=== PATIENT | female | born 1940 | race Asian ===

== ENCOUNTER 2016-10-21 11:00 | Inpatient (IN) | payer MEDICARE, MEDICAID ==
[~2016-10-21] VITALS: Ht 154.9 cm; Wt 72.6 kg
[~2016-10-21 11:00] MED LIST: ACETAMINOPHEN650 M2 ORAL; APRESOLINE10 MG ORAL; ATORVASTATIN CA20 MG ORAL; CARVEDILOL12.5 MG ORAL; COREG25 MG ORAL; COUMADIN1 MG ORAL; COUMADIN2.5 MG ORAL; DOCUSATE SODIU100 MG ORAL; FERROUS SULFAT325 MG ORAL; LACTULOSE20 GM/301 ORAL; LANTUS5 UNITS SUBQ; LEVEMIR FL100 UNIT/1 SUBQ; LOSARTAN POTASS50 MG ORAL; MIRALAX17 G2 ORAL; MORPHINE 22 MG/1 ML SUBQ; MULTIVITAMINS1 EAC8 ORAL; NITROGLYCERIN0.4 MG SL; NORCO 5-325 TA1 EACH ORAL; NORVASC2.5 MG ORAL; NOVOLOG100 UNITS1; RANITIDINE HCL150 MG ORAL; RISPERDAL1 MG ORAL; ROCEPHIN 11 GM/50 ML IVPB; VITAMIN C250 MG ORAL; VITAMIN D400 INTLU ORAL; Warfarin RX monitoring MISC
[2016-10-21] MEDS ORDERED: Nitroglycerin 2% oint pkt TOPIC ONE (11:15)
--- NOTE | 2016-10-21 11:19 | Emergency Room Report ---
History of Present Illness General Chief Complaint: Abnormal Labs Source: Patient, Medical Record, EMS, Caregiver Present Illness HPI The patient is sent in from a halfway facility because of a positive troponin. Apparently was 0.5. The patient hasn't chest pain and denies any at the moment. No dyspnea, palpitations. Patient complaining of some abdominal pain. Poorly described - aching and cramping, more mid abdomen. Denies dysuria. Diabetic, HTN Allergies: Coded Allergies: NO KNOWN DRUG ALLERGIES (Verified Allergy, Unknown, 09/26/15) Patient History Past Medical History: see triage record Past Surgical History: CABG, other - lumbar fxs Social History: Denies: smoking Social History Narrative [facility] Reviewed Nursing Documentation: PMH: Agreed, PSxH: Agreed Nursing Documentation-PMH Hx Cardiac Problems: Yes Hx Hypertension: Yes Hx Diabetes: Yes - kidney disease Hx Cancer: No Hx Gastrointestinal Problems: Yes - GERD Hx Neurological Problems: Yes - dementia Hx Cerebrovascular Accident: Yes - date unspecified Hx Dementia: Yes Hx Peripheral Neuropathy: Yes Hx Weakness: Yes Review of Systems All Other Systems: limited - variable historian Physical Exam Vital Signs Date Time Temp Pulse Resp B/P Pulse Ox O2 Delivery O2 Flow Rate FiO2 10/21/16 11:08 70 16 181/79 100 Room Air Procedures Critical Care Time Critical Care Time Total time: 30 min bedside evaluation and treatment excludes procedures (EKG). Reason for critical care: NSTEMI, hyperkalemia, hypoglycemia Possible complications: hypotension, hypertension, SD, shock, arrhythmias, metabolic acidosis, end organ damage, respiratory failure. Interventions: aspirin, nitrates, calcium, D50W, PICC, re-evaluations Course: Patient with + troponin. Immediate EKG, not STEMI. aspirin and nitrates given. K+ high, no peaked T waves. Treat. IV d/c. PICC inserted. Hypoglycemic, D50 W given. Repeat glucose better. Consultations: nursing staff, EMS, admitting MD Performed by: Dr. Baptiste Tolerated well condition = serious Medical Decision Making Diagnostic Impression: Primary Impression: NSTEMI (non-ST elevated myocardial infarction) Additional Impressions: Hyperkalemia Hypoglycemia UTI (urinary tract infection) Qualified Codes: N30.00 - Acute cystitis without hematuria Renal insufficiency ER Course Patient with + troponin with no c/o chest pain. DDx: NSTEMI, STEMI, false +. Emergent evaluation with EKG, labs, CXR. Treatment with aspirin and nitrates. Patient on coumadin. K+ elevated. Treatment ordered. Patient had d/c'd IV. Repeat labs ordered and PICC. Patient dropped blood sugar before treatment with insulin and D50W. D50W given. Repeat glucose 150. Patient hemodynamically stable. Denies chest pain. Admit [facility], Dr. Solomon. Laboratory Tests Test 10/21/16 11:30 10/21/16 12:30 Urine Color Pale yellow Urine Appearance Slightly cloudy Urine pH 5 (4.5-8.0) Urine Specific [place] 1.010 (1.005-1.035) Urine Protein 2+ (NEGATIVE) H Urine Glucose (UA) 1+ (NEGATIVE) H Urine Ketones Negative (NEGATIVE) Urine Occult Blood 1+ (NEGATIVE) H Urine Nitrite Negative (NEGATIVE) Urine Bilirubin Negative (NEGATIVE) Urine Urobilinogen Normal MG/DL (0.0-1.0) Urine Leukocyte Esterase 3+ (NEGATIVE) H Urine RBC 2-4 /HPF (0 - 2) H Urine WBC 15-20 /HPF (0 - 2) H Urine Squamous Epithelial Cells Few /LPF (NONE/OCC) Urine Bacteria Few /HPF (NONE) White Blood Count 6.1 K/UL (4.8-10.8) Red Blood Count 3.72 M/UL (4.20-5.40) L Hemoglobin 11.8 G/DL (12.0-16.0) L Hematocrit 35.5 % (37.0-47.0) L Mean Corpuscular Volume 95 FL (80-99) Mean Corpuscular Hemoglobin 31.6 PG (27.0-31.0) H Mean Corpuscular Hemoglobin Concent 33.2 G/DL (32.0-36.0) Red Cell Distribution Width 12.6 % (11.6-14.8) Platelet Count 258 K/UL (150-450) Mean Platelet Volume 6.9 FL (6.5-10.1) Neutrophils (%) (Auto) 61.9 % (45.0-75.0) Lymphocytes (%) (Auto) 26.3 % (20.0-45.0) Monocytes (%) (Auto) 6.8 % (1.0-10.0) Eosinophils (%) (Auto) 4.4 % (0.0-3.0) H Basophils (%) (Auto) 0.7 % (0.0-2.0) Prothrombin Time 19.1 SEC (9.30-11.50) H Prothrombin Time INR 1.8 (0.9-1.1) H Sodium Level 140 mEQ/L (135-145) Potassium Level 6.1 mEQ/L (3.4-4.9) *H Chloride Level 107 mEQ/L (98-107) Carbon Dioxide Level 20 mEQ/L (20-30) Anion Gap 13 (5-15) Blood Urea Nitrogen 41 mg/dL (7-23) H Creatinine 1.6 mg/dL (0.5-0.9) H Estimate Glomerular Filtration Rate mL/min (>60) Glucose Level 144 mg/dL (74-106) H Calcium Level 9.5 mg/dL (8.6-10.2) Total Bilirubin < 0.2 mg/dL (0.0-1.2) Aspartate Amino Transferase (AST) 24 U/L (5-40) Alanine Aminotransferase (ALT) 12 U/L (3-33) Alkaline Phosphatase 106 U/L (35-104) H Total Creatine Kinase 169 U/L (26-140) H Troponin I 1.09 ng/mL (<=0.30) *H Pro-B-Type Natriuretic Peptide 2157 pg/mL (0-125) H Total Protein 7.2 g/dL (6.6-8.7) Albumin 4.2 g/dL (3.5-5.2) Globulin 3.0 g/dL Albumin/Globulin Ratio 1.4 (1.0-2.7) EKG Diagnostic Results Rate: normal Rhythm: NSR ST Segments: no acute changes Rhythm Strip Diag. Results EP Interpretation: yes Rhythm: NSR, no PVC's, no ectopy Chest X-Ray Diagnostic Results EP Interpretation: Yes Findings: no consolidation, no effusion, no pneumothorax, other - scarring and CABG - calcification of aorta Number of Views: 1 Last Vital Signs Date Time Temp Pulse Resp B/P Pulse Ox O2 Delivery O2 Flow Rate FiO2 10/21/16 20:49 92 154/81 10/21/16 20:00 98.1 20 100 Room Air Status: improved Disposition: ADMITTED INPATIENT Condition: Serious Ben Baptiste M.D. Oct 21, 2016 11:19
[2016-10-21 11:35] VITALS: BP 163/72
[2016-10-21 12:03] LABS: APPEARANCE,URINE SLIGHTLY CLOUDY; KETONES,URINE NEGATIVE (NEGATIVE); LEUKOCYTE ESTERASE ,URINE 3+ (NEGATIVE); NITRITE,URINE NEGATIVE (NEGATIVE); PH,URINE 5 (4.5-8.0); PROTEIN,URINE 2+ (NEGATIVE); UROBILINOGEN,URINE NORMAL MG/DL (0.0-1.0)
[2016-10-21 12:13] LABS: BACTERIA,URINE FEW /HPF; SQUAMOUS EPITHELIAL CELL,UR FEW /LPF (NONE/OCC); WBC,URINE 15-20 /HPF (0 - 2)
[2016-10-21] MEDS ORDERED: cefTRIAXone 1 GM in NS 55 ML IVPB ONE (12:30)
[2016-10-21 12:38] LABS: BASOPHILS % (AUTO) 0.7 % (0.0-2.0); EOSINOPHILS % (AUTO) 4.4 % (0.0-3.0); LYMPHOCYTES % (AUTO) 26.3 % (20.0-45.0); MEAN CORPUSCULAR HEMOGLOBIN 31.6 PG (27.0-31.0); MEAN CORPUSCULAR HGB CONC 33.2 G/DL (32.0-36.0); MEAN CORPUSCULAR VOLUME 95 FL (80-99); MEAN PLATELET VOLUME 6.9 FL (6.5-10.1); MONOCYTES % (AUTO) 6.8 % (1.0-10.0); NEUTROPHILS % (AUTO) 61.9 % (45.0-75.0); PLATELET COUNT 258 K/UL (150-450); RED BLOOD COUNT 3.72 M/UL (4.20-5.40); RED CELL DISTRIBUTION WIDTH 12.6 % (11.6-14.8); WHITE BLOOD COUNT 6.1 K/UL (4.8-10.8)
[2016-10-21 13:25] LABS: TROPONIN I 1.09 ng/mL (<=0.30)
[2016-10-21 13:27] LABS: INR 1.8 (0.9-1.1); PROTHROMBIN TIME 19.1 SEC (9.30-11.50)
[2016-10-21 13:44] LABS: ALANINE AMINOTRANSFERASE 12 U/L (3-33); ALBUMIN/GLOBULIN RATIO 1.4 (1.0-2.7); ANION GAP 13 (5-15); ASPARTATE AMINO TRANSFERASE 24 U/L (5-40); CALCIUM 9.5 mg/dL (8.6-10.2); CARBON DIOXIDE 20 mEQ/L (20-30); CHLORIDE 107 mEQ/L (98-107); CREATININE 1.6 mg/dL (0.5-0.9); HEMOLYSIS 14; SODIUM 140 mEQ/L (135-145); TOTAL PROTEIN 7.2 g/dL (6.6-8.7)
[2016-10-21 13:45] LABS: POTASSIUM 6.1 mEQ/L (3.4-4.9)
[2016-10-21] MEDS ORDERED: Calcium Gluconate 1gm/10ml vial IVP ONE (14:00)
[2016-10-21] MEDS ORDERED: Sodium Polystyrene Sulfonate 15gm Powder ORAL ONE (14:00)
--- NOTE | 2016-10-21 14:36 | Diagnostic Imaging Report ---
Indication: Chest pain Technique: One view of the chest Comparison: 06/02/2016 Findings: Linear presumed scarring is seen in the right midlung, left mid to lower lung, similar to prior studies. The lungs and pleural spaces are clear otherwise. The heart size is upper limits normal. Aorta is tortuous and ectatic and calcified. There is evidence of prior CABG Impression: Findings as noted. No acute process
[2016-10-21] MEDS ORDERED: Lidocaine 1% Plain 30 ml INJ ONE (15:00)
[2016-10-21] MEDS ORDERED: Heparin 2000 units/Ns 1000ml IV ONE (15:00)
[2016-10-21 15:24] VITALS: BP 140/60
[2016-10-21] MEDS ORDERED: Heparin 25,000u/D5W 500ml 500 ML IV SCH (15:45)
[2016-10-21] MEDS ORDERED: HydrALAZINE 10mg Tab ORAL PRN (15:45)
[2016-10-21] MEDS ORDERED: Diltiazem 25mg/5ml IV PRN (15:45)
[2016-10-21] MEDS ORDERED: Enalaprilat 2.5mg/2ml Inj IV PRN (15:45)
[2016-10-21] MEDS ORDERED: DuoNeb 0.5-3(2.5)mg/3ml neb HHN PRN (15:45)
[2016-10-21] MEDS ORDERED: Ketorolac 30mg Inj IV PRN (15:45)
[2016-10-21] MEDS ORDERED: Miralax 17gm pkt ORAL PRN (15:45)
[2016-10-21] MEDS ORDERED: Morphine Sulfate 2mg/ml Inj IVP PRN (15:45)
[2016-10-21] MEDS ORDERED: Nitroglycerin Subl 0.4mg tab (Bottle Of 25) SL PRN (15:45)
[2016-10-21] MEDS: NovoLOG Insulin Flexpen SUBQ SCH ×2 (16:30→20:53)
[2016-10-21] MEDS: Aspirin Baby 81mg ORAL SCH (17:00)
[2016-10-21 17:28] VITALS: BP 140/68
--- NOTE | 2016-10-21 17:44 | Diagnostic Imaging Report ---
Indications: Needs long-term IV access Technique: Ultrasound confirms patent compressible right distal vein. Total sterile technique, including sterile probe cover and sterile gel, hat, mask,, sterile gown, large sterile drape, and preparation with 2% chlorhexidine utilized. Local anesthesia with 1% lidocaine. Under real-time ultrasound guidance, puncture is a vein using 21-gauge needle, documented and archived, passage 0.018 guidewire under direct fluoroscopy, which was used to determine appropriate catheter length, exchange for 5 Azeri peel-away sheath. 5 [place] Bard dual-lumen power PICC cut to 30 cm. It was inserted through the peel-away sheath. Peel-away sheath and guidewire removed. Catheter fixed to the skin. Both catheter ports aspirated and flushed. Patient tolerated procedure well, without immediate complication. Digital radiograph documents satisfactory catheter tip position, at the cavoatrial junction. Total fluoroscopy time 0.3 minutes. Total dose area product 6.1 dGycm2 Impression: Successful placement of PICC under sonographic and fluoroscopic guidance, as described above.
[2016-10-21 18:15] VITALS: BP 145/69
--- NOTE | 2016-10-21 18:23 | Cardiology Progress Note ---
Assessment/Plan Assessment/Plan nstemi cad hsx renal insuf htn uti has an stress test 05/2016 poor study will repeat labs statin ecotrin for now abx for uti will follow thanks [id number] Objective Last 24 Hour Vital Signs Date Time Temp Pulse Resp B/P Pulse Ox O2 Delivery O2 Flow Rate FiO2 10/21/16 18:15 97.6 82 17 145/69 99 Room Air 10/21/16 15:24 97.6 74 16 140/60 99 Room Air 10/21/16 12:12 143/85 10/21/16 11:35 16 163/72 100 Room Air 10/21/16 11:08 70 16 181/79 100 Room Air Laboratory Tests Test 10/21/16 11:30 10/21/16 12:30 10/21/16 17:26 Urine Color Pale yellow Urine Appearance Slightly cloudy Urine pH 5 (4.5-8.0) Urine Specific [place] 1.010 (1.005-1.035) Urine Protein 2+ (NEGATIVE) H Urine Glucose (UA) 1+ (NEGATIVE) H Urine Ketones Negative (NEGATIVE) Urine Occult Blood 1+ (NEGATIVE) H Urine Nitrite Negative (NEGATIVE) Urine Bilirubin Negative (NEGATIVE) Urine Urobilinogen Normal MG/DL (0.0-1.0) Urine Leukocyte Esterase 3+ (NEGATIVE) H Urine RBC 2-4 /HPF (0 - 2) H Urine WBC 15-20 /HPF (0 - 2) H Urine Squamous Epithelial Cells Few /LPF (NONE/OCC) Urine Bacteria Few /HPF (NONE) White Blood Count 6.1 K/UL (4.8-10.8) Red Blood Count 3.72 M/UL (4.20-5.40) L Hemoglobin 11.8 G/DL (12.0-16.0) L Hematocrit 35.5 % (37.0-47.0) L Mean Corpuscular Volume 95 FL (80-99) Mean Corpuscular Hemoglobin 31.6 PG (27.0-31.0) H Mean Corpuscular Hemoglobin Concent 33.2 G/DL (32.0-36.0) Red Cell Distribution Width 12.6 % (11.6-14.8) Platelet Count 258 K/UL (150-450) Mean Platelet Volume 6.9 FL (6.5-10.1) Neutrophils (%) (Auto) 61.9 % (45.0-75.0) Lymphocytes (%) (Auto) 26.3 % (20.0-45.0) Monocytes (%) (Auto) 6.8 % (1.0-10.0) Eosinophils (%) (Auto) 4.4 % (0.0-3.0) H Basophils (%) (Auto) 0.7 % (0.0-2.0) Prothrombin Time 19.1 SEC (9.30-11.50) H Prothromb Time International Ratio 1.8 (0.9-1.1) H Sodium Level 140 mEQ/L (135-145) Potassium Level 6.1 mEQ/L (3.4-4.9) *H Chloride Level 107 mEQ/L (98-107) Carbon Dioxide Level 20 mEQ/L (20-30) Anion Gap 13 (5-15) Blood Urea Nitrogen 41 mg/dL (7-23) H Creatinine 1.6 mg/dL (0.5-0.9) H Estimat Glomerular Filtration Rate mL/min (>60) Glucose Level 144 mg/dL (74-106) H Calcium Level 9.5 mg/dL (8.6-10.2) Total Bilirubin < 0.2 mg/dL (0.0-1.2) Aspartate Amino Transf (AST/SGOT) 24 U/L (5-40) Alanine Aminotransferase (ALT/SGPT) 12 U/L (3-33) Alkaline Phosphatase 106 U/L (35-104) H Total Creatine Kinase 169 U/L (26-140) H Troponin I 1.09 ng/mL (<=0.30) *H Pending Pro-B-Type Natriuretic Peptide 2157 pg/mL (0-125) H Total Protein 7.2 g/dL (6.6-8.7) Albumin 4.2 g/dL (3.5-5.2) Globulin 3.0 g/dL Albumin/Globulin Ratio 1.4 (1.0-2.7) JEFFERY BRADY Oct 21, 2016 18:23
[2016-10-21 18:34] VITALS: BP 153/83
[2016-10-21 18:37] LABS: TROPONIN I 0.63 ng/mL (<=0.30)
[2016-10-21] MEDS ORDERED: Warfarin Sodium 2.5mg ORAL SCH (19:00)
[2016-10-21 20:00] VITALS: BP 154/81
[2016-10-21] MEDS: Carvedilol 25mg Tab ORAL SCH (20:49)
[2016-10-21] MEDS: Atorvastatin 20mg tab ORAL SCH (20:49)
[2016-10-22] VITALS: BP 111/52
--- NOTE | 2016-10-22 02:17 | Consultation ---
DATE OF CONSULTATION: 10/21/2016 CARDIOLOGY CONSULTATION REFERRING PHYSICIAN: Anthony Solomon M.D. REASON FOR REFERRAL: Abnormal cardiac enzymes. HISTORY OF PRESENT ILLNESS: This is an elderly female, who is a resident of [facility] facility, who was apparently transferred to the hospital because of abnormal cardiac enzymes. She is somewhat of a poor historian and therefore information is released scattered and appears that she has occasional chest pain and occasional shortness of breath, but the details with of that are really unknown. Her history changes with each repetitive questions and therefore, is unreliable for accuracy. She does not seem to have any chest pain at the present time. She does not appear to be in short of breath at the present time, and she does not have any dizziness or lightheadedness. She occasionally has palpitations. PAST MEDICAL HISTORY: History of admission here back in May 2016 for which she underwent perfusion imaging that showed somewhat of suboptimal imaging, equivocal fixed posterior septum felt to be possibly artifactual, ejection fraction was estimated at 40%. She apparently has a history of coronary bypass grafting in 2003 and history of hypertension, hyperlipidemia, diabetes, chronic renal insufficiency, and gastroesophageal reflux disease. ALLERGIES: No known drug allergies. SOCIAL HISTORY: She resides at [facility]. Does not smoke or drink alcoholic beverages. REVIEW OF SYSTEMS: Gastrointestinal: She really is unreliable. She does not appear to have nausea or vomiting at this time and no abdominal pain. Genitourinary: She does not have any discomfort on urination. Pulmonary: She denies any coughing or wheezing. PHYSICAL EXAMINATION: GENERAL: The patient is an elderly female in no apparent distress. Sitting at the edge of the bed. NECK: Supple. No jugular venous distention. LUNGS: Clear to auscultation and percussion. CARDIAC: S1 is normal. S2 is normal. Regular rate and rhythm. No heaves, thrills, gallops, or rubs noted. ABDOMEN: Soft and nontender. Positive bowel sounds. Obese. EXTREMITIES: There is no clubbing, cyanosis, or edema. NEUROLOGIC: She is awake, alert, responsive, and communicative. LABORATORY AND DIAGNOSTIC DATA: White count 6, hemoglobin 11.8, and platelet count of 258,000. Sodium 140, potassium 6.1, chloride 107, bicarbonate 20, BUN 41, creatinine 1.6 and glucose of 144. Her creatinine compared to previous levels was ranging between 1.6 and 1.8. Potassium was 6.1 at this time. Her troponin is 1.09 up from less than 0.3. ProBNP is 2100. Albumin is 4.2. Coagulations, INR 1.8. Urinalysis shows 15 to 20 WBCs and 2 to 4 RBCs, 3+ leukocyte esterase. A chest x-ray has been performed today, and has no acute prosthesis. Her EKG showed basically sinus rhythm. There is some T-wave inversions in the inferior leads that may have been present on prior occasions. ASSESSMENT AND PLAN: 1. Non ST-elevation myocardial infarction. 2. Chronic renal insufficiency. 3. Coronary artery disease history. 4. Urinary tract infection. 5. Vascular dementia. Dr. Solomon, this patient was seen in cardiac consultation. Unfortunately, the patient's information she provides is really unreliable and questionable for accuracy. I would prefer repeating cardiac enzymes as well as the echocardiogram as well as the EKG to see if any new wall motion abnormalities were present. Of note, the patient did have an ischemic evaluation in May of this year, that reportedly showed no definite abnormalities and will be questionable possibility of the fixed defect and that may need to be reconsidered. The patient should have aspirin on board as well as statins for the time being as well as and beta-blockers. She is on anticoagulation. Her blood pressure appears to be on the high side, but she is seemed to be saturating adequately. I will follow the patient along with you. She does needs to be treated for possibility of an infection. The Kayexalate being administered for her hyperkalemia. Carl Wilde M.D. DR: GODWIN JOB#: [id number] CC:
[2016-10-22 04:00] VITALS: BP 128/60
[2016-10-22 05:41] LABS: BASOPHILS % (AUTO) 0.5 % (0.0-2.0); EOSINOPHILS % (AUTO) 4.9 % (0.0-3.0); LYMPHOCYTES % (AUTO) 25.2 % (20.0-45.0); MEAN CORPUSCULAR HEMOGLOBIN 31.1 PG (27.0-31.0); MEAN CORPUSCULAR HGB CONC 32.8 G/DL (32.0-36.0); MEAN CORPUSCULAR VOLUME 95 FL (80-99); MEAN PLATELET VOLUME 8.1 FL (6.5-10.1); NEUTROPHILS % (AUTO) 62.5 % (45.0-75.0); PLATELET COUNT 224 K/UL (150-450); RED BLOOD COUNT 3.12 M/UL (4.20-5.40); RED CELL DISTRIBUTION WIDTH 12.8 % (11.6-14.8); WHITE BLOOD COUNT 6.3 K/UL (4.8-10.8)
[2016-10-22 05:50] LABS: PROTHROMBIN TIME 20.7 SEC (9.30-11.50)
[2016-10-22] MEDS: NovoLOG Insulin Flexpen SUBQ SCH ×4 (06:02→20:35)
[2016-10-22 06:52] LABS: CHOLESTEROL 163 mg/dL (< 200); CHOLESTEROL/HDL RATIO 5.1 (3.3-4.4); CRP QUANT < 0.3 mg/dL (< 0.5); HEMOLYSIS 2; LDL CHOLESTEROL (CALC.) 104 mg/dL (60-99)
[2016-10-22 07:12] LABS: THYROID STIMULATING HORMONE 0.586 uIU/mL (0.300-4.500)
[2016-10-22 07:20] LABS: TROPONIN I 0.56 ng/mL (<=0.30)
[2016-10-22 08:00] VITALS: BP 158/79
[2016-10-22] MEDS: Carvedilol 25mg Tab ORAL SCH ×2 (08:44→20:34)
[2016-10-22] MEDS: Aspirin Baby 81mg ORAL SCH (08:45)
--- NOTE | 2016-10-22 11:40 | History and Physical ---
History of Present Illness General Date patient seen: Oct 22, 2016 Reason for Hospitalization: Abnormal Labs Present Illness HPI 76 year of female with hx of CAD, HTN, DM patient is sent in from a long term facility because of a positive troponin. Apparently was 0.5. The patient hasn't chest pain and denies any at the moment. Patient complaining of some abdominal pain. Poorly described - aching and cramping, more mid abdomen. Denies dysuria. Initial evaluation revealed that her K was elevated therefore she is admitted to [facility] for further evaluaiton. Allergies: Coded Allergies: NO KNOWN DRUG ALLERGIES (Verified Allergy, Unknown, 09/26/15) Medication History Scheduled Acetaminophen (Acetaminophen 8 Hour), 650 MG ORAL Q6H, (Reported) Amlodipine Besylate (Norvasc), 2.5 MG ORAL DAILY Ascorbic Acid* (Vitamin C*), 250 MG ORAL DAILY, (Reported) Atorvastatin Calcium* (Atorvastatin Calcium*), 10 MG ORAL BEDTIME, (Reported) Carvedilol (Coreg), 25 MG ORAL EVERY 12 HOURS Ceftriaxone Sod (Ceftriaxone 1 gm-D5w Bag), 1 GM IVPB DAILY Docusate Sodium* (Docusate Sodium*), 100 MG ORAL TWICE A DAY, (Reported) Ferrous Sulfate* (Ferrous Sulfate*), 325 MG ORAL DAILY, (Reported) Insulin Detemir (Levemir Flexpen), 15 UNITS SUBQ Q24H Insulin Glargine (Lantus), 20 SUBQ BEDTIME, (Reported) Multivitamin With Minerals (Multivitamins With Minerals*), 1 TAB ORAL DAILY, ( Reported) Ranitidine Hcl* (Zantac*), 150 MG ORAL TWICE A DAY Risperidone* (Risperdal*), 1 MG ORAL BEDTIME Vitamin D (Vitamin D3), 400 UNITS ORAL DAILY, (Reported) Warfarin Sod* (Coumadin*), 1.5 MG ORAL DAILY, (Reported) Warfarin Sod* (Coumadin*), 2.5 MG ORAL DAILY Scheduled PRN Hydralazine HCl (Hydralazine HCl), 10 MG ORAL Q6H PRN for SBP above 160 Hydrocodone Bit/Acetaminophen 5-325* ([place] 5-325*), 1 TAB ORAL Q4H PRN for For Pain Morphine Sulfate* (Morphine Sulfate*), 2 MG SUBQ EVERY 6 HOURS PRN Polyethylene Glycol 3350* (Miralax*), 17 GM ORAL HSPRN PRN for Constipation [Warfarin RX monitoring], 1 EA MISC DAILY PRN for Per rx protocol Miscellaneous Medications Insulin Aspart (Novolog Flexpen), (Reported) Lactulose (Lactulose*), 30 ML ORAL, (Reported) Nitroglycerin (Nitroglycerin), 0.4 MG SL, (Reported) Patient History Healthcare decision maker Resuscitation status Full Code Advanced Directive on File Past Medical/Surgical History Past Medical/Surgical History: (1) L2 severe compression fx , old (2) Vascular dementia (3) Diabetes mellitus (4) HTN (hypertension) Review of Systems All Other Systems: negative except mentioned in HPI Physical Exam General Appearance: WD/WN, alert Lines, tubes and drains: peripheral, central line HEENT: normocephalic, atraumatic Neck: non-tender, normal alignment Respiratory/Chest: lungs clear Cardiovascular/Chest: normal peripheral pulses, normal rate Abdomen: normal bowel sounds, non tender Genitourinary/Rectal: normal genital exam, normal rectal exam Extremities: non-tender Last 24 Hour Vital Signs Date Time Temp Pulse Resp B/P Pulse Ox O2 Delivery O2 Flow Rate FiO2 10/22/16 08:45 79 158/76 10/22/16 08:44 79 158/76 10/22/16 08:00 98.1 76 22 158/79 98 Room Air 10/22/16 08:00 74 10/22/16 06:43 77 18 Room Air 10/22/16 04:00 98.0 78 20 128/60 99 Room Air 10/22/16 03:58 82 10/22/16 00:03 73 10/22/16 00:00 97.4 70 20 111/52 97 Room Air 10/21/16 20:49 92 154/81 10/21/16 20:00 82 10/21/16 20:00 98.1 93 20 154/81 100 Room Air 10/21/16 19:03 85 16 Room Air 10/21/16 18:34 98.1 86 18 153/83 98 Room Air 10/21/16 18:27 97.6 82 17 145/69 99 Room Air 10/21/16 18:15 97.6 82 17 145/69 99 Room Air 10/21/16 17:28 97.6 82 16 140/68 99 Room Air 10/21/16 15:24 97.6 74 16 140/60 99 Room Air 10/21/16 12:12 143/85 Intake and Output 10/21/16 10/22/16 19:00 07:00 Intake Total 270 ml Balance 270 ml Intake Oral 270 ml # Voids 1 # Bowel Movements 1 Laboratory Tests Test 10/21/16 12:30 10/21/16 17:26 10/22/16 05:00 White Blood Count 6.1 K/UL (4.8-10.8) 6.3 K/UL (4.8-10.8) Red Blood Count 3.72 M/UL (4.20-5.40) L 3.12 M/UL (4.20-5.40) L Hemoglobin 11.8 G/DL (12.0-16.0) L 9.7 G/DL (12.0-16.0) L Hematocrit 35.5 % (37.0-47.0) L 29.6 % (37.0-47.0) L Mean Corpuscular Volume 95 FL (80-99) 95 FL (80-99) Mean Corpuscular Hemoglobin 31.6 PG (27.0-31.0) H 31.1 PG (27.0-31.0) H Mean Corpuscular Hemoglobin Concent 33.2 G/DL (32.0-36.0) 32.8 G/DL (32.0-36.0) Red Cell Distribution Width 12.6 % (11.6-14.8) 12.8 % (11.6-14.8) Platelet Count 258 K/UL (150-450) 224 K/UL (150-450) Mean Platelet Volume 6.9 FL (6.5-10.1) 8.1 FL (6.5-10.1) Neutrophils (%) (Auto) 61.9 % (45.0-75.0) 62.5 % (45.0-75.0) Lymphocytes (%) (Auto) 26.3 % (20.0-45.0) 25.2 % (20.0-45.0) Monocytes (%) (Auto) 6.8 % (1.0-10.0) 7.0 % (1.0-10.0) Eosinophils (%) (Auto) 4.4 % (0.0-3.0) H 4.9 % (0.0-3.0) H Basophils (%) (Auto) 0.7 % (0.0-2.0) 0.5 % (0.0-2.0) Prothrombin Time 19.1 SEC (9.30-11.50) H 20.7 SEC (9.30-11.50) H Prothromb Time International Ratio 1.8 (0.9-1.1) H 2.0 (0.9-1.1) H Sodium Level 140 mEQ/L (135-145) Potassium Level 6.1 mEQ/L (3.4-4.9) *H Chloride Level 107 mEQ/L (98-107) Carbon Dioxide Level 20 mEQ/L (20-30) Anion Gap 13 (5-15) Blood Urea Nitrogen 41 mg/dL (7-23) H Creatinine 1.6 mg/dL (0.5-0.9) H Estimat Glomerular Filtration Rate mL/min (>60) Glucose Level 144 mg/dL (74-106) H Calcium Level 9.5 mg/dL (8.6-10.2) Total Bilirubin < 0.2 mg/dL (0.0-1.2) Aspartate Amino Transf (AST/SGOT) 24 U/L (5-40) Alanine Aminotransferase (ALT/SGPT) 12 U/L (3-33) Alkaline Phosphatase 106 U/L (35-104) H Total Creatine Kinase 169 U/L (26-140) H Troponin I 1.09 ng/mL (<=0.30) *H 0.63 ng/mL (<=0.30) *H 0.56 ng/mL (<=0.30) *H Pro-B-Type Natriuretic Peptide 2157 pg/mL (0-125) H Total Protein 7.2 g/dL (6.6-8.7) Albumin 4.2 g/dL (3.5-5.2) Globulin 3.0 g/dL Albumin/Globulin Ratio 1.4 (1.0-2.7) Activated Partial Thromboplast Time 35 SEC (23-33) H C-Reactive Protein, Quantitative < 0.3 mg/dL (< 0.5) Triglycerides Level 136 mg/dL (< 150) Cholesterol Level 163 mg/dL (< 200) LDL Cholesterol 104 mg/dL (60-99) H HDL Cholesterol 32 mg/dL (> 60) Cholesterol/HDL Ratio 5.1 (3.3-4.4) H Thyroid Stimulating Hormone (TSH) 0.586 uIU/mL (0.300-4.500) Height (Feet): 5 Height (Inches): 1.00 Weight (Pounds): 160 Medications Current Medications Medications (Trade) Dose Ordered Sig/Asha Route PRN Reason Start Time Stop Time Status Last Admin Dose Admin Acetaminophen (Tylenol) 650 mg Q4H PRN ORAL FEVER 10/21/16 15:45 11/20/16 15:44 Albuterol/ Ipratropium (DuoNeb 0.5-3(2.5)mg/3ml) 3 ml Q4H PRN HHN Shortness of Breath 10/21/16 15:45 10/26/16 15:44 Amlodipine Besylate (Norvasc) 2.5 mg DAILY ORAL 10/22/16 09:00 11/21/16 08:59 10/22/16 08:45 Aspirin (ASA) 162 mg DAILY ORAL 10/21/16 17:00 11/20/16 16:59 10/22/16 08:45 Atorvastatin Calcium (Lipitor) 20 mg BEDTIME ORAL 10/21/16 21:00 11/20/16 20:59 10/21/16 20:49 Carvedilol (Coreg) 25 mg EVERY 12 HOURS ORAL 10/21/16 21:00 11/20/16 20:59 10/22/16 08:44 Dextrose (Dextrose 50%) STAT PRN IV Hypoglycemia 10/21/16 15:45 11/20/16 15:44 Diltiazem HCl (Cardizem) 10 mg Q1H PRN IV heart rate more than 120, 10/21/16 15:45 11/20/16 15:44 Enalaprilat (Vasotec) 2.5 mg Q6H PRN IV sbp more than 160 10/21/16 15:45 11/20/16 15:44 Hydralazine HCl (Apresoline) 10 mg Q6H PRN ORAL SBP above 160 10/21/16 15:45 11/20/16 15:44 Insulin Aspart (NovoLOG) BEFORE MEALS AND HS SUBQ 10/21/16 16:30 11/20/16 16:29 10/22/16 06:02 Ketorolac Tromethamine (Toradol 30mg) 30 mg Q6H PRN IV moderate pain ( 4-6) 10/21/16 15:45 10/26/16 15:44 Morphine Sulfate (Morphine Sulfate) 2 mg Q4H PRN IVP severe Pain (Pain Scale 7-10) 10/21/16 15:45 10/28/16 15:44 Nitroglycerin (Ntg) 0.4 mg Q5M PRN SL Prn Chest Pain 10/21/16 15:45 11/20/16 15:44 Ondansetron HCl (Zofran) 4 mg Q6H PRN IVP Nausea & Vomiting 10/21/16 15:45 11/20/16 15:44 Pantoprazole (Protonix) 40 mg DAILY ORAL 10/22/16 09:00 11/21/16 08:59 10/22/16 08:44 Polyethylene Glycol (Miralax) 17 gm DAILYPRN PRN ORAL Constipation 10/21/16 15:45 11/20/16 15:44 Temazepam (Restoril) 15 mg HSPRN PRN ORAL Insomnia 10/21/16 15:45 10/28/16 15:44 Warfarin Sodium (Coumadin per pharmacy) 1 ea DAILY PRN MISC PER RX PROTOCOL 10/21/16 16:15 11/20/16 16:14 Warfarin Sodium (Coumadin) 3 mg COUMADIN ONCE ORAL 10/22/16 17:00 10/22/16 17:01 Assessment/Plan Problem List: (1) NSTEMI (non-ST elevated myocardial infarction) ICD Codes: I21.4 - Non-ST elevation (NSTEMI) myocardial infarction SNOMED: 75136883 (2) Hyperkalemia ICD Codes: E87.5 - Hyperkalemia SNOMED: 56213097 (3) ATN (acute tubular necrosis) ICD Codes: N17.0 - Acute kidney failure with tubular necrosis SNOMED: 83239375 (4) Diabetes mellitus ICD Codes: E11.9 - Type 2 diabetes mellitus without complications SNOMED: 67739289 (5) Vascular dementia ICD Codes: F01.50 - Vascular dementia without behavioral disturbance SNOMED: 958509793 Assessment/Plan f/u K renal evaluation echo serial ekg, troponin sliding scale diabetic diet JUAN LUIS ASHLEY Oct 22, 2016 11:40
[2016-10-22 11:57] LABS: ALANINE AMINOTRANSFERASE 11 U/L (3-33); ALBUMIN/GLOBULIN RATIO 1.1 (1.0-2.7); ANION GAP 16 (5-15); ASPARTATE AMINO TRANSFERASE 21 U/L (5-40); CALCIUM 9.2 mg/dL (8.6-10.2); CARBON DIOXIDE 20 mEQ/L (20-30); CHLORIDE 104 mEQ/L (98-107); CREATININE 1.7 mg/dL (0.5-0.9); HEMOLYSIS 5; POTASSIUM 5.1 mEQ/L (3.4-4.9); SODIUM 140 mEQ/L (135-145); TOTAL PROTEIN 6.5 g/dL (6.6-8.7)
[2016-10-22 12:00] VITALS: BP 142/74
--- NOTE | 2016-10-22 15:54 | Consultation ---
Consult Note Consult Note asked to eval for renal failure- The patient is sent in from a long-term facility because of a positive troponin. Apparently was 0.5. The patient hasn't chest pain and denies any at the moment. No dyspnea, palpitations. Patient complaining of some abdominal pain. Poorly described - aching and cramping, more mid abdomen. Denies dysuria. Diabetic, HTN Past Surgical History: CABG, other - lumbar fxs Hx Cardiac Problems: Yes Hx Hypertension: Yes Hx Diabetes: Yes - kidney disease Hx Cancer: No Hx Gastrointestinal Problems: Yes - GERD Hx Neurological Problems: Yes - dementia Hx Cerebrovascular Accident: Yes - date unspecified Hx Dementia: Yes Hx Peripheral Neuropathy: Yes Hx Weakness: Yes Assessment/Plan Diabetic Nephropathy- Anemia other conditions: - ACS (acute coronary syndrome) - CKD / Diabetic - Hyperkalemia - Diabetes mellitus - Vascular dementia - History of CVA (cerebrovascular accident) - UTI Plan: Adjust BP meds- Avoid Nephrotoxics- Monitor renal parameters antibiotics- Urine studies ROMELIA HAMPTON Oct 22, 2016 15:54
[2016-10-22 16:00] VITALS: BP 156/90
[2016-10-22] MEDS ORDERED: HydrALAZINE 25mg tab ORAL PRN (16:00)
[2016-10-22] MEDS: cefTRIAXone 1 GM in D5W 55 ML IVPB SCH (16:28)
[2016-10-22 16:30] LABS: TROPONIN I 0.86 ng/mL (<=0.30)
[2016-10-22] MEDS ORDERED: Warfarin Sodium 3mg ORAL ONE (17:00)
[2016-10-22] MEDS: Docusate 250mg cap ORAL SCH (17:41)
--- NOTE | 2016-10-22 18:02 | Cardiology Progress Note ---
Assessment/Plan Assessment/Plan nstemi cad hsx renal insuf htn uti has an stress test 05/2016 poor study repeat trop min abn maybe due to renal insuf as min up a down statin ecotrin for now abx for uti may consider repeat ischemia eval as the last one was poor quality however may consider doing as out pt if stable Subjective Cardiovascular: Denies: chest pain, irregular heart rate, lightheadedness Gastrointestinal/Abdominal: Denies: abdominal pain Genitourinary: Denies: burning Objective Last 24 Hour Vital Signs Date Time Temp Pulse Resp B/P Pulse Ox O2 Delivery O2 Flow Rate FiO2 10/22/16 16:00 97.8 80 19 156/90 97 Room Air 10/22/16 16:00 80 10/22/16 12:00 98.1 79 21 142/74 99 Room Air 10/22/16 08:45 79 158/76 10/22/16 08:44 79 158/76 10/22/16 08:00 98.1 76 22 158/79 98 Room Air 10/22/16 08:00 74 10/22/16 06:43 77 18 Room Air 10/22/16 04:00 98.0 78 20 128/60 99 Room Air 10/22/16 03:58 82 10/22/16 00:03 73 10/22/16 00:00 97.4 70 20 111/52 97 Room Air 10/21/16 20:49 92 154/81 10/21/16 20:00 82 10/21/16 20:00 98.1 93 20 154/81 100 Room Air 10/21/16 19:03 85 16 Room Air 10/21/16 18:34 98.1 86 18 153/83 98 Room Air 10/21/16 18:27 97.6 82 17 145/69 99 Room Air 10/21/16 18:15 97.6 82 17 145/69 99 Room Air General Appearance: no apparent distress, alert Neck: supple Cardiovascular: normal rate, regular rhythm Respiratory/Chest: lungs clear, normal breath sounds Abdomen: normal bowel sounds, non tender, soft Extremities: no swelling Intake and Output 10/21/16 10/22/16 19:00 07:00 Intake Total 270 ml Balance 270 ml Intake Oral 270 ml # Voids 1 # Bowel Movements 1 Laboratory Tests Test 10/22/16 05:00 10/22/16 15:25 White Blood Count 6.3 K/UL (4.8-10.8) Red Blood Count 3.12 M/UL (4.20-5.40) L Hemoglobin 9.7 G/DL (12.0-16.0) L Hematocrit 29.6 % (37.0-47.0) L Mean Corpuscular Volume 95 FL (80-99) Mean Corpuscular Hemoglobin 31.1 PG (27.0-31.0) H Mean Corpuscular Hemoglobin Concent 32.8 G/DL (32.0-36.0) Red Cell Distribution Width 12.8 % (11.6-14.8) Platelet Count 224 K/UL (150-450) Mean Platelet Volume 8.1 FL (6.5-10.1) Neutrophils (%) (Auto) 62.5 % (45.0-75.0) Lymphocytes (%) (Auto) 25.2 % (20.0-45.0) Monocytes (%) (Auto) 7.0 % (1.0-10.0) Eosinophils (%) (Auto) 4.9 % (0.0-3.0) H Basophils (%) (Auto) 0.5 % (0.0-2.0) Prothrombin Time 20.7 SEC (9.30-11.50) H Prothromb Time International Ratio 2.0 (0.9-1.1) H Activated Partial Thromboplast Time 35 SEC (23-33) H Sodium Level 140 mEQ/L (135-145) Potassium Level 5.1 mEQ/L (3.4-4.9) H Chloride Level 104 mEQ/L (98-107) Carbon Dioxide Level 20 mEQ/L (20-30) Anion Gap 16 (5-15) H Blood Urea Nitrogen 39 mg/dL (7-23) H Creatinine 1.7 mg/dL (0.5-0.9) H Estimat Glomerular Filtration Rate mL/min (>60) Glucose Level 207 mg/dL (74-106) H Calcium Level 9.2 mg/dL (8.6-10.2) Total Bilirubin < 0.2 mg/dL (0.0-1.2) Aspartate Amino Transf (AST/SGOT) 21 U/L (5-40) Alanine Aminotransferase (ALT/SGPT) 11 U/L (3-33) Alkaline Phosphatase 81 U/L (35-104) Troponin I 0.56 ng/mL (<=0.30) *H 0.86 ng/mL (<=0.30) *H C-Reactive Protein, Quantitative < 0.3 mg/dL (< 0.5) Total Protein 6.5 g/dL (6.6-8.7) L Albumin 3.5 g/dL (3.5-5.2) Globulin 3.0 g/dL Albumin/Globulin Ratio 1.1 (1.0-2.7) Triglycerides Level 136 mg/dL (< 150) Cholesterol Level 163 mg/dL (< 200) LDL Cholesterol 104 mg/dL (60-99) H HDL Cholesterol 32 mg/dL (> 60) Cholesterol/HDL Ratio 5.1 (3.3-4.4) H Thyroid Stimulating Hormone (TSH) 0.586 uIU/mL (0.300-4.500) Microbiology Date/Time Source Procedure Growth Status 10/21/16 11:30 Urine,Clean Catch Urine Culture - Preliminary Gram Negative Bacillus 1 Resulted JEFFERY BRADY Oct 22, 2016 18:02
[2016-10-22 20:00] VITALS: BP 162/82
[2016-10-22] MEDS: Atorvastatin 20mg tab ORAL SCH (20:35)
[2016-10-23 00:18] VITALS: BP 99/57
[2016-10-23 04:01] VITALS: BP 153/78
[2016-10-23 06:08] LABS: BASOPHILS % (AUTO) 0.6 % (0.0-2.0); EOSINOPHILS % (AUTO) 4.7 % (0.0-3.0); LYMPHOCYTES % (AUTO) 26.6 % (20.0-45.0); MEAN CORPUSCULAR HEMOGLOBIN 31.5 PG (27.0-31.0); MEAN CORPUSCULAR HGB CONC 33.1 G/DL (32.0-36.0); MEAN CORPUSCULAR VOLUME 95 FL (80-99); MEAN PLATELET VOLUME 7.2 FL (6.5-10.1); MONOCYTES % (AUTO) 9.8 % (1.0-10.0); NEUTROPHILS % (AUTO) 58.3 % (45.0-75.0); PLATELET COUNT 214 K/UL (150-450); RED BLOOD COUNT 3.24 M/UL (4.20-5.40); RED CELL DISTRIBUTION WIDTH 12.5 % (11.6-14.8); WHITE BLOOD COUNT 6.2 K/UL (4.8-10.8)
[2016-10-23] MEDS: NovoLOG Insulin Flexpen SUBQ SCH ×4 (06:43→20:28)
[2016-10-23 07:11] LABS: TROPONIN I 0.63 ng/mL (<=0.30)
[2016-10-23 07:35] VITALS: BP 136/66
--- NOTE | 2016-10-23 07:50 | Pulmonology Progress Note ---
Assessment/Plan Assessment/Plan ASSESSMENT NSTEMI vs elevated troponin 2 to renal insufficiency ATN on CRI CAD with hx of CABG (2001) UTI hyperkalemia DM with episode of hypoglycemia (resolved ) vascular dementia HTN hx of CVA PLAN OF CARE REBECCA serial troponin trending down , per cardio possible due to renal insufficiency ( minimal elevation) Cardio follows ECHO with preserved EF 60-65% per cardio ischemic eval done in May 2016, no clear abnormalities were identified, ? fixed defect -poor quality overall cardio suggested another ischemic eval -but can be done as outpt started on ASA, statin, BB continue anticoagulation with Coumadin , keep INR in 2-3 BP management with BB and CCB, optimize as needed lipid panel with borderline LDL-104 TSH ok nephro follows , renal parameters - no change, monitor renal parameters and lytes, avoid nephrotoxic last renal US in January with normal bilateral kidney echogenicity however on previous visits creat also with elevation, likely element of chronic abx, urine cx + GNB, fup with final cx O2 HHN prn CXR no acute cardiopulmonary disease pulse ox stable on RA BS management with SS of insulin GI prophylaxis bowel regimen case discussed and evaluated by supervising physician Subjective Allergies: Coded Allergies: NO KNOWN DRUG ALLERGIES (Verified Allergy, Unknown, 09/26/15) Subjective denies chest pain, SOB but very unreliable in providing history afebrile, no leucocytosis, no signs of respiratory distress sitting in the chair, comfortable Objective Last 24 Hour Vital Signs Date Time Temp Pulse Resp B/P Pulse Ox O2 Delivery O2 Flow Rate FiO2 10/23/16 07:35 98.1 90 20 136/66 97 Room Air 10/23/16 04:01 98.2 76 18 153/78 98 Room Air 10/23/16 03:47 83 10/23/16 00:18 97.7 73 18 99/57 98 Room Air 10/22/16 23:41 77 10/22/16 20:39 80 162/82 10/22/16 20:34 80 162/82 10/22/16 20:05 82 10/22/16 20:00 97.5 80 18 162/82 97 Room Air 10/22/16 19:05 76 18 Room Air 10/22/16 16:00 97.8 80 19 156/90 97 Room Air 10/22/16 16:00 80 10/22/16 12:00 98.1 79 21 142/74 99 Room Air 10/22/16 08:45 79 158/76 10/22/16 08:44 79 158/76 10/22/16 08:00 98.1 76 22 158/79 98 Room Air 10/22/16 08:00 74 Intake and Output 10/22/16 10/23/16 19:00 07:00 Intake Total 275 ml 240 ml Balance 275 ml 240 ml Intake Oral 220 ml 240 ml IV Total 55 ml # Voids 2 3 # Bowel Movements 1 General Appearance: no acute distress HEENT: normocephalic, atraumatic, anicteric, mucous membranes moist Respiratory/Chest: lungs clear, no respiratory distress, no accessory muscle use Cardiovascular: regular rhythm - SR on tele , regularly irregular, no JVD, other Abdomen: normal bowel sounds, soft, non tender, non distended Genitourinary: normal external genitalia Extremities: no edema, pedal pulses normal Neurologic/Psychiatric: abnormal gait, alert, responsive - forgetful and confused Musculoskeletal: atrophy - BLE Microbiology Date/Time Source Procedure Growth Status 10/21/16 11:30 Urine,Clean Catch Urine Culture - Preliminary Gram Negative Bacillus 1 Resulted 10/21/16 14:00 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 Complete Laboratory Tests 10/22/16 15:25: Troponin I 0.86*H 10/23/16 01:45: Urine Eosinophils [Pending], Urine Random Sodium [Pending] 10/23/16 04:10: Troponin I 0.63*H, White Blood Count 6.2, Red Blood Count 3.24L, Hemoglobin 10.2L, Hematocrit 30.8L, Mean Corpuscular Volume 95, Mean Corpuscular Hemoglobin 31.5H, Mean Corpuscular Hemoglobin Concent 33.1, Red Cell Distribution Width 12.5, Platelet Count 214, Mean Platelet Volume 7.2, Neutrophils (%) (Auto) 58.3, Lymphocytes (%) (Auto) 26.6, Monocytes (%) (Auto) 9.8, Eosinophils (%) (Auto) 4.7H, Basophils (%) (Auto) 0.6, Sodium Level [ Pending], Potassium Level [Pending], Chloride Level [Pending], Carbon Dioxide Level [Pending], Blood Urea Nitrogen [Pending], Creatinine [Pending], Estimat Glomerular Filtration Rate [Pending], Glucose Level [Pending], Hemoglobin A1c [ Pending], Uric Acid [Pending], Calcium Level [Pending], Phosphorus Level [ Pending], Magnesium Level [Pending], Iron Level [Pending], Unsaturated Iron Binding [Pending], Ferritin [Pending], Total Bilirubin [Pending], Gamma Glutamyl Transpeptidase [Pending], Aspartate Amino Transf (AST/SGOT) [Pending], Alanine Aminotransferase (ALT/SGPT) [Pending], Alkaline Phosphatase [Pending], Total Creatine Kinase [Pending], C-Reactive Protein, Quantitative [Pending], Pro -B-Type Natriuretic Peptide [Pending], Total Protein [Pending], Albumin [Pending ], Globulin [Pending], Triglycerides Level [Pending], Cholesterol Level [Pending ], LDL Cholesterol [Pending], HDL Cholesterol [Pending], Cholesterol/HDL Ratio [ Pending], Vitamin B12 Level [Pending], Folate [Pending], Thyroid Stimulating Hormone (TSH) [Pending] Current Medications Medications (Trade) Dose Ordered Sig/Asha Route PRN Reason Start Time Stop Time Status Last Admin Dose Admin Acetaminophen (Tylenol) 650 mg Q4H PRN ORAL FEVER 10/21/16 15:45 11/20/16 15:44 Albuterol/ Ipratropium (DuoNeb 0.5-3(2.5)mg/3ml) 3 ml Q4H PRN HHN Shortness of Breath 10/21/16 15:45 10/26/16 15:44 Amlodipine Besylate (Norvasc) 2.5 mg Q12HR ORAL 10/22/16 21:00 11/21/16 20:59 10/22/16 20:39 Aspirin (ASA) 162 mg DAILY ORAL 10/21/16 17:00 11/20/16 16:59 10/22/16 08:45 Atorvastatin Calcium 20 mg 20 mg BEDTIME ORAL 10/21/16 21:00 11/20/16 20:59 10/22/16 20:35 Carvedilol (Coreg) 25 mg EVERY 12 HOURS ORAL 10/21/16 21:00 11/20/16 20:59 10/22/16 20:34 Ceftriaxone Sodium/Dextrose (Rocephin/D5W) 55 ml @ 110 mls/hr Q24H IVPB 10/22/16 16:00 10/29/16 15:59 10/22/16 16:28 Dextrose (Dextrose 50%) STAT PRN IV Hypoglycemia 10/21/16 15:45 11/20/16 15:44 Diltiazem HCl (Cardizem) 10 mg Q1H PRN IV heart rate more than 120, 10/21/16 15:45 11/20/16 15:44 Docusate Sodium (Colace) 250 mg TWICE A DAY ORAL 10/22/16 18:00 11/21/16 17:59 10/22/16 17:41 Hydralazine HCl (Apresoline) 25 mg Q6H PRN ORAL SBP above 160 10/22/16 16:00 11/21/16 15:59 Insulin Aspart (NovoLOG) BEFORE MEALS AND HS SUBQ 10/21/16 16:30 11/20/16 16:29 10/23/16 06:43 Morphine Sulfate (Morphine Sulfate) 2 mg Q4H PRN IVP severe Pain (Pain Scale 7-10) 10/21/16 15:45 10/28/16 15:44 Nitroglycerin (Ntg) 0.4 mg Q5M PRN SL Prn Chest Pain 10/21/16 15:45 11/20/16 15:44 Ondansetron HCl (Zofran) 4 mg Q6H PRN IVP Nausea & Vomiting 10/21/16 15:45 11/20/16 15:44 Pantoprazole (Protonix) 40 mg DAILY ORAL 10/22/16 09:00 11/21/16 08:59 10/22/16 08:44 Polyethylene Glycol (Miralax) 17 gm DAILYPRN PRN ORAL Constipation 10/21/16 15:45 11/20/16 15:44 Temazepam (Restoril) 15 mg HSPRN PRN ORAL Insomnia 10/21/16 15:45 10/28/16 15:44 Warfarin Sodium (Coumadin per pharmacy) 1 ea DAILY PRN MISC PER RX PROTOCOL 10/21/16 16:15 11/20/16 16:14 [facility] NP Oct 23, 2016 07:50
[2016-10-23 08:02] LABS: HEMOGLOBIN A1C 6.9 % (< 6.0)
[2016-10-23 08:07] LABS: ALANINE AMINOTRANSFERASE 11 U/L (3-33); ALBUMIN/GLOBULIN RATIO 1.3 (1.0-2.7); ANION GAP 17 (5-15); ASPARTATE AMINO TRANSFERASE 26 U/L (5-40); CALCIUM 9.2 mg/dL (8.6-10.2); CARBON DIOXIDE 20 mEQ/L (20-30); CHLORIDE 104 mEQ/L (98-107); CHOLESTEROL 176 mg/dL (< 200); CHOLESTEROL/HDL RATIO 4.3 (3.3-4.4); CREATININE 1.6 mg/dL (0.5-0.9); HEMOLYSIS 2; LDL CHOLESTEROL (CALC.) 119 mg/dL (60-99); MAGNESIUM 1.7 mg/dL (1.7-2.5); PHOSPHORUS 3.4 mg/dL (2.5-4.8); SODIUM 141 mEQ/L (135-145)
[2016-10-23 08:09] LABS: HEMOLYSIS 21; IRON 67 ug/dL (37-145); TOTAL IRON BINDING CAPACITY 239 ug/dL (250-400)
[2016-10-23 08:11] LABS: FERRITIN 327 ng/mL (13-150)
[2016-10-23] MEDS: Carvedilol 25mg Tab ORAL SCH ×2 (08:44→20:28)
[2016-10-23] MEDS: Docusate 250mg cap ORAL SCH ×2 (08:44→17:30)
[2016-10-23] MEDS: Aspirin Baby 81mg ORAL SCH (08:44)
[2016-10-23 08:55] LABS: CRP QUANT < 0.3 mg/dL (< 0.5); URIC ACID 6.7 mg/dL (3.0-7.5)
[2016-10-23 11:58] VITALS: BP 136/64
--- NOTE | 2016-10-23 13:16 | General Progress Note ---
Assessment/Plan Status: unchanged - from renal stand Assessment/Plan Status: - ACS (acute coronary syndrome) - CKD / Diabetic - Hyperkalemia - Diabetes mellitus - Vascular dementia - History of CVA (cerebrovascular accident) - UTI Plan: Adjust BP meds- Avoid Nephrotoxics- Monitor renal parameters antibiotics- Urine studies Subjective ROS Limited/Unobtainable: No Constitutional: Reports: malaise, weakness Allergies: Coded Allergies: NO KNOWN DRUG ALLERGIES (Verified Allergy, Unknown, 09/26/15) Objective Last 24 Hour Vital Signs Date Time Temp Pulse Resp B/P Pulse Ox O2 Delivery O2 Flow Rate FiO2 10/23/16 11:58 97.3 82 19 136/64 99 Room Air 10/23/16 08:44 90 136/66 10/23/16 08:44 90 136/66 10/23/16 08:00 79 10/23/16 07:35 98.1 90 20 136/66 97 Room Air 10/23/16 04:01 98.2 76 18 153/78 98 Room Air 10/23/16 03:47 83 10/23/16 00:18 97.7 73 18 99/57 98 Room Air 10/22/16 23:41 77 10/22/16 20:39 80 162/82 10/22/16 20:34 80 162/82 10/22/16 20:05 82 10/22/16 20:00 97.5 80 18 162/82 97 Room Air 10/22/16 19:05 76 18 Room Air 10/22/16 16:00 97.8 80 19 156/90 97 Room Air 10/22/16 16:00 80 Intake and Output 10/22/16 10/23/16 19:00 07:00 Intake Total 275 ml 240 ml Balance 275 ml 240 ml Intake Oral 220 ml 240 ml IV Total 55 ml # Voids 2 3 # Bowel Movements 1 Laboratory Tests 10/22/16 15:25: Troponin I 0.86*H 10/23/16 01:45: Urine Eosinophils None seen, Urine Random Sodium 44 10/23/16 04:10: Troponin I 0.63*H, White Blood Count 6.2, Red Blood Count 3.24L, Hemoglobin 10.2L, Hematocrit 30.8L, Mean Corpuscular Volume 95, Mean Corpuscular Hemoglobin 31.5H, Mean Corpuscular Hemoglobin Concent 33.1, Red Cell Distribution Width 12.5, Platelet Count 214, Mean Platelet Volume 7.2, Neutrophils (%) (Auto) 58.3, Lymphocytes (%) (Auto) 26.6, Monocytes (%) (Auto) 9.8, Eosinophils (%) (Auto) 4.7H, Basophils (%) (Auto) 0.6, Sodium Level 141, Potassium Level 5.0H, Chloride Level 104, Carbon Dioxide Level 20, Anion Gap 17H , Blood Urea Nitrogen 39H, Creatinine 1.6H, Estimat Glomerular Filtration Rate , Glucose Level 211H, Hemoglobin A1c 6.9H, Uric Acid 6.7, Calcium Level 9.2, Phosphorus Level 3.4, Magnesium Level 1.7, Iron Level 67, Total Iron Binding Capacity 239L, Percent Iron Saturation 28, Unsaturated Iron Binding 172, Ferritin 327H, Total Bilirubin 0.3, Gamma Glutamyl Transpeptidase 14, Aspartate Amino Transf (AST/SGOT) 26, Alanine Aminotransferase (ALT/SGPT) 11, Alkaline Phosphatase 90, Total Creatine Kinase 517H, C-Reactive Protein, Quantitative < 0.3, Pro-B-Type Natriuretic Peptide 3178H, Total Protein 7.0, Albumin 4.0, Globulin 3.0, Albumin/Globulin Ratio 1.3, Triglycerides Level 82, Cholesterol Level 176, LDL Cholesterol 119H, HDL Cholesterol 41, Cholesterol/HDL Ratio 4.3, Vitamin B12 Level 692, Folate [Pending], Thyroid Stimulating Hormone (TSH) 1.160 Height (Feet): 5 Height (Inches): 1.00 Weight (Pounds): 160 General Appearance: no apparent distress Respiratory/Chest: decreased breath sounds Abdomen: soft Objective other PE not changed ROMELIA HAMPTON Oct 23, 2016 13:16
[2016-10-23 16:00] VITALS: BP 155/74
[2016-10-23 16:14] LABS: INR 2.4 (0.9-1.1); PROTHROMBIN TIME 25.2 SEC (9.30-11.50)
[2016-10-23] MEDS ORDERED: Warfarin Sodium 2mg ORAL SCH (17:00)
[2016-10-23] MEDS: cefTRIAXone 1 GM in D5W 55 ML IVPB SCH (17:05)
[2016-10-23 20:00] VITALS: BP 159/79
--- NOTE | 2016-10-23 20:01 | Cardiology Progress Note ---
Assessment/Plan Assessment/Plan nstemi abnormal top may be related to reanl insuf cad hsx renal insuf htn uti has an stress test 05/2016 poor study repeat trop min abn maybe due to renal insuf as min up a down statin ecotrin for now abx for uti may consider repeat ischemia eval as the last one was poor quality as outpt trop pattern not typical of ischemia ok to tele Subjective Cardiovascular: Denies: chest pain, lightheadedness Respiratory: Reports: shortness of breath Gastrointestinal/Abdominal: Denies: abdomen distended Genitourinary: Denies: burning Objective Last 24 Hour Vital Signs Date Time Temp Pulse Resp B/P Pulse Ox O2 Delivery O2 Flow Rate FiO2 10/23/16 19:00 88 18 Room Air 10/23/16 16:00 81 10/23/16 16:00 97.5 79 19 155/74 100 Room Air 10/23/16 15:00 90 16 Room Air 10/23/16 12:00 82 10/23/16 11:58 97.3 82 19 136/64 99 Room Air 10/23/16 08:44 90 136/66 10/23/16 08:44 90 136/66 10/23/16 08:00 79 10/23/16 07:35 98.1 90 20 136/66 97 Room Air 10/23/16 04:01 98.2 76 18 153/78 98 Room Air 10/23/16 03:47 83 10/23/16 00:18 97.7 73 18 99/57 98 Room Air 10/22/16 23:41 77 10/22/16 20:39 80 162/82 10/22/16 20:34 80 162/82 10/22/16 20:05 82 10/22/16 20:00 97.5 80 18 162/82 97 Room Air General Appearance: no apparent distress, alert Neck: no JVD Cardiovascular: normal rate, regular rhythm Respiratory/Chest: chest wall non-tender, lungs clear, normal breath sounds Abdomen: normal bowel sounds, non tender, soft Extremities: no swelling Intake and Output 10/22/16 10/23/16 19:00 07:00 Intake Total 275 ml 240 ml Balance 275 ml 240 ml Intake Oral 220 ml 240 ml IV Total 55 ml # Voids 2 3 # Bowel Movements 1 Laboratory Tests Test 10/23/16 01:45 10/23/16 04:10 10/23/16 16:00 Urine Eosinophils None seen Urine Random Sodium 44 mmol/L White Blood Count 6.2 K/UL (4.8-10.8) Red Blood Count 3.24 M/UL (4.20-5.40) L Hemoglobin 10.2 G/DL (12.0-16.0) L Hematocrit 30.8 % (37.0-47.0) L Mean Corpuscular Volume 95 FL (80-99) Mean Corpuscular Hemoglobin 31.5 PG (27.0-31.0) H Mean Corpuscular Hemoglobin Concent 33.1 G/DL (32.0-36.0) Red Cell Distribution Width 12.5 % (11.6-14.8) Platelet Count 214 K/UL (150-450) Mean Platelet Volume 7.2 FL (6.5-10.1) Neutrophils (%) (Auto) 58.3 % (45.0-75.0) Lymphocytes (%) (Auto) 26.6 % (20.0-45.0) Monocytes (%) (Auto) 9.8 % (1.0-10.0) Eosinophils (%) (Auto) 4.7 % (0.0-3.0) H Basophils (%) (Auto) 0.6 % (0.0-2.0) Sodium Level 141 mEQ/L (135-145) Potassium Level 5.0 mEQ/L (3.4-4.9) H Chloride Level 104 mEQ/L (98-107) Carbon Dioxide Level 20 mEQ/L (20-30) Anion Gap 17 (5-15) H Blood Urea Nitrogen 39 mg/dL (7-23) H Creatinine 1.6 mg/dL (0.5-0.9) H Estimat Glomerular Filtration Rate mL/min (>60) Glucose Level 211 mg/dL (74-106) H Hemoglobin A1c 6.9 % (< 6.0) H Uric Acid 6.7 mg/dL (3.0-7.5) Calcium Level 9.2 mg/dL (8.6-10.2) Phosphorus Level 3.4 mg/dL (2.5-4.8) Magnesium Level 1.7 mg/dL (1.7-2.5) Iron Level 67 ug/dL (37-145) Total Iron Binding Capacity 239 ug/dL (250-400) L Percent Iron Saturation 28 % (15-50) Unsaturated Iron Binding 172 ug/dL (112-346) Ferritin 327 ng/mL (13-150) H Total Bilirubin 0.3 mg/dL (0.0-1.2) Gamma Glutamyl Transpeptidase 14 U/L (5-36) Aspartate Amino Transf (AST/SGOT) 26 U/L (5-40) Alanine Aminotransferase (ALT/SGPT) 11 U/L (3-33) Alkaline Phosphatase 90 U/L (35-104) Total Creatine Kinase 517 U/L (26-140) H Troponin I 0.63 ng/mL (<=0.30) *H C-Reactive Protein, Quantitative < 0.3 mg/dL (< 0.5) Pro-B-Type Natriuretic Peptide 3178 pg/mL (0-450) H Total Protein 7.0 g/dL (6.6-8.7) Albumin 4.0 g/dL (3.5-5.2) Globulin 3.0 g/dL Albumin/Globulin Ratio 1.3 (1.0-2.7) Triglycerides Level 82 mg/dL (< 150) Cholesterol Level 176 mg/dL (< 200) LDL Cholesterol 119 mg/dL (60-99) H HDL Cholesterol 41 mg/dL (> 60) Cholesterol/HDL Ratio 4.3 (3.3-4.4) Vitamin B12 Level 692 pg/mL (211-946) Folate Pending Thyroid Stimulating Hormone (TSH) 1.160 uIU/mL (0.300-4.500) Prothrombin Time 25.2 SEC (9.30-11.50) H Prothromb Time International Ratio 2.4 (0.9-1.1) H Microbiology Date/Time Source Procedure Growth Status 10/21/16 14:00 Nasal Nares MRSA Culture - Final Staphylococcus Aureus - Mrsa Complete 10/21/16 11:30 Urine,Clean Catch Urine Culture - Final Escherichia Coli Complete 10/21/16 14:00 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 Complete JEFFERY BRADY Oct 23, 2016 20:01
[2016-10-23] MEDS: Atorvastatin 20mg tab ORAL SCH (20:29)
[2016-10-24] VITALS: BP 105/61
[2016-10-24 04:00] VITALS: BP 108/55
[2016-10-24 05:00] LABS: BASOPHILS % (AUTO) 0.6 % (0.0-2.0); EOSINOPHILS % (AUTO) 5.4 % (0.0-3.0); LYMPHOCYTES % (AUTO) 28.9 % (20.0-45.0); MEAN CORPUSCULAR HEMOGLOBIN 31.4 PG (27.0-31.0); MEAN CORPUSCULAR VOLUME 95 FL (80-99); MONOCYTES % (AUTO) 8.3 % (1.0-10.0); NEUTROPHILS % (AUTO) 56.8 % (45.0-75.0); PLATELET COUNT 210 K/UL (150-450); RED BLOOD COUNT 3.34 M/UL (4.20-5.40); RED CELL DISTRIBUTION WIDTH 12.6 % (11.6-14.8); WHITE BLOOD COUNT 6.2 K/UL (4.8-10.8)
[2016-10-24 05:11] LABS: INR 3.6 (0.9-1.1); PROTHROMBIN TIME 37.8 SEC (9.30-11.50)
[2016-10-24 05:23] LABS: ALANINE AMINOTRANSFERASE 12 U/L (3-33); ALBUMIN/GLOBULIN RATIO 1.2 (1.0-2.7); ANION GAP 17 (5-15); ASPARTATE AMINO TRANSFERASE 32 U/L (5-40); CALCIUM 9.2 mg/dL (8.6-10.2); CARBON DIOXIDE 21 mEQ/L (20-30); CHLORIDE 104 mEQ/L (98-107); CREATININE 1.7 mg/dL (0.5-0.9); HEMOLYSIS 5; MAGNESIUM 1.7 mg/dL (1.7-2.5); PHOSPHORUS 4.1 mg/dL (2.5-4.8); POTASSIUM 5.1 mEQ/L (3.4-4.9); SODIUM 142 mEQ/L (135-145); URIC ACID 6.9 mg/dL (3.0-7.5)
[2016-10-24 05:27] LABS: TROPONIN I < 0.30 ng/mL (<=0.30)
[2016-10-24] MEDS: NovoLOG Insulin Flexpen SUBQ SCH ×4 (05:43→21:10)
[2016-10-24] MEDS: Carvedilol 25mg Tab ORAL SCH ×2 (08:16→21:07)
[2016-10-24] MEDS: Docusate 250mg cap ORAL SCH ×2 (08:16→17:19)
[2016-10-24] MEDS: Aspirin Baby 81mg ORAL SCH (08:16)
[2016-10-24 08:18] VITALS: BP 154/87
--- NOTE | 2016-10-24 10:18 | General Progress Note ---
Assessment/Plan Status: unchanged Assessment/Plan Status: - ACS (acute coronary syndrome) - CKD / Diabetic - Hyperkalemia - Diabetes mellitus - Vascular dementia - History of CVA (cerebrovascular accident) - UTI Plan: one dose of kayexelate Adjust BP meds- Avoid Nephrotoxics- Monitor renal parameters antibiotics- Urine studies Subjective ROS Limited/Unobtainable: No Constitutional: Reports: malaise Allergies: Coded Allergies: NO KNOWN DRUG ALLERGIES (Verified Allergy, Unknown, 09/26/15) Objective Last 24 Hour Vital Signs Date Time Temp Pulse Resp B/P Pulse Ox O2 Delivery O2 Flow Rate FiO2 10/24/16 08:18 97.5 79 18 154/87 99 Room Air 10/24/16 08:17 86 108/55 10/24/16 08:16 86 108/55 10/24/16 07:35 86 18 Room Air 10/24/16 04:03 75 10/24/16 04:00 97.9 79 20 108/55 99 Room Air 10/24/16 00:00 98.0 71 20 105/61 100 Room Air 10/23/16 23:55 76 10/23/16 20:29 95 159/79 10/23/16 20:28 95 159/79 10/23/16 20:00 84 10/23/16 20:00 98.1 76 20 159/79 99 Room Air 10/23/16 19:00 88 18 Room Air 10/23/16 16:00 81 10/23/16 16:00 97.5 79 19 155/74 100 Room Air 10/23/16 15:00 90 16 Room Air 10/23/16 12:00 82 10/23/16 11:58 97.3 82 19 136/64 99 Room Air Intake and Output 10/23/16 10/24/16 19:00 07:00 Intake Total 590 ml 240 ml Balance 590 ml 240 ml Intake Oral 480 ml 240 ml IV Total 110 ml # Voids 2 3 Laboratory Tests 10/23/16 16:00: Prothrombin Time 25.2H, Prothromb Time International Ratio 2.4H 10/24/16 04:00: Prothrombin Time 37.8H, Prothromb Time International Ratio 3.6H, White Blood Count 6.2, Red Blood Count 3.34L, Hemoglobin 10.5L, Hematocrit 31.8L, Mean Corpuscular Volume 95, Mean Corpuscular Hemoglobin 31.4H, Mean Corpuscular Hemoglobin Concent 33.0, Red Cell Distribution Width 12.6, Platelet Count 210, Mean Platelet Volume 8.0, Neutrophils (%) (Auto) 56.8, Lymphocytes (%) (Auto) 28.9, Monocytes (%) (Auto) 8.3, Eosinophils (%) (Auto) 5.4H, Basophils (%) (Auto ) 0.6, Sodium Level 142, Potassium Level 5.1H, Chloride Level 104, Carbon Dioxide Level 21, Anion Gap 17H, Blood Urea Nitrogen 35H, Creatinine 1.7H, Estimat Glomerular Filtration Rate , Glucose Level 176H, Uric Acid 6.9, Calcium Level 9.2, Phosphorus Level 4.1, Magnesium Level 1.7, Total Bilirubin 0.2, Aspartate Amino Transf (AST/SGOT) 32, Alanine Aminotransferase (ALT/SGPT) 12, Alkaline Phosphatase 90, Troponin I < 0.30, Total Protein 7.0, Albumin 3.9, Globulin 3.1, Albumin/Globulin Ratio 1.2 10/24/16 06:30: Urine Eosinophils None seen Height (Feet): 5 Height (Inches): 1.00 Weight (Pounds): 160 General Appearance: no apparent distress Objective other PE not changed ROMELIA HAMPTON Oct 24, 2016 10:18
[2016-10-24] MEDS ORDERED: Sodium Polystyrene Sulfonate 15gm Powder ORAL ONE (10:30)
[2016-10-24 12:00] VITALS: BP_SYST 129; BP_SYST 154; BP_DIAS 67; BP_DIAS 87
--- NOTE | 2016-10-24 12:48 | Pulmonology Progress Note ---
Assessment/Plan Assessment/Plan ASSESSMENT NSTEMI vs elevated troponin 2 to renal insufficiency ATN on CRI CAD with hx of CABG (? 2001) UTI hyperkalemia DM with episode of hypoglycemia (resolved ) vascular dementia HTN hx of CVA PLAN OF CARE serial troponin trending down , per cardio possible due to renal insufficiency ( minimal elevation) troponin this am negative Cardio follows ECHO with preserved EF 60-65% per cardio ischemic eval done in May 2016, no clear abnormalities were identified, ? fixed defect -poor quality overall cardio suggested another ischemic eval -but can be done as outpt started on ASA, statin, BB continue anticoagulation with Coumadin , keep INR in 2-3, today INR -3.6 hold Coumadin BP management with BB and CCB, optimize as needed lipid panel with borderline LDL-104 TSH ok nephro follows , renal parameters - no change, monitor renal parameters and lytes, avoid nephrotoxic last renal US in January with normal bilateral kidney echogenicity however on previous visits creat also with elevation, likely element of chronic treat hyperkalemia, monitor lytes in am abx, urine cx + E coli O2 HHN prn CXR no acute cardiopulmonary disease pulse ox stable on RA BS management with SS of insulin GI prophylaxis bowel regimen transfer to tele case discussed and evaluated by supervising physician Subjective Allergies: Coded Allergies: NO KNOWN DRUG ALLERGIES (Verified Allergy, Unknown, 09/26/15) Subjective denies chest pain, SOB but very unreliable in providing history afebrile, no leucocytosis, no signs of respiratory distress sitting in the chair, comfortable , smiling, not appeared to be in distress K-5.1 today Objective Last 24 Hour Vital Signs Date Time Temp Pulse Resp B/P Pulse Ox O2 Delivery O2 Flow Rate FiO2 10/24/16 12:38 71 10/24/16 12:00 97.7 69 20 129/67 99 Room Air 10/24/16 08:18 97.5 79 18 154/87 99 Room Air 10/24/16 08:17 86 108/55 10/24/16 08:16 86 108/55 10/24/16 08:00 93 10/24/16 07:35 86 18 Room Air 10/24/16 04:03 75 10/24/16 04:00 97.9 79 20 108/55 99 Room Air 10/24/16 00:00 98.0 71 20 105/61 100 Room Air 10/23/16 23:55 76 10/23/16 20:29 95 159/79 10/23/16 20:28 95 159/79 10/23/16 20:00 84 10/23/16 20:00 98.1 76 20 159/79 99 Room Air 10/23/16 19:00 88 18 Room Air 10/23/16 16:00 81 10/23/16 16:00 97.5 79 19 155/74 100 Room Air 10/23/16 15:00 90 16 Room Air Intake and Output 10/23/16 10/24/16 19:00 07:00 Intake Total 590 ml 240 ml Balance 590 ml 240 ml Intake Oral 480 ml 240 ml IV Total 110 ml # Voids 2 3 Objective General Appearance: no acute distress HEENT: normocephalic, atraumatic, anicteric, mucous membranes moist Respiratory/Chest: lungs clear, no respiratory distress, no accessory muscle use Cardiovascular: regular rhythm - SR on tele , regularly irregular, no JVD, other Abdomen: normal bowel sounds, soft, non tender, non distended Genitourinary: normal external genitalia Extremities: no edema, pedal pulses normal Neurologic/Psychiatric: abnormal gait, alert, responsive, forgetful Musculoskeletal: atrophy - BLE Microbiology Date/Time Source Procedure Growth Status 10/21/16 14:00 Nasal Nares MRSA Culture - Final Staphylococcus Aureus - Mrsa Complete 10/21/16 14:00 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 Complete Laboratory Tests 10/23/16 16:00: Prothrombin Time 25.2H, Prothromb Time International Ratio 2.4H 10/24/16 04:00: Prothrombin Time 37.8H, Prothromb Time International Ratio 3.6H, White Blood Count 6.2, Red Blood Count 3.34L, Hemoglobin 10.5L, Hematocrit 31.8L, Mean Corpuscular Volume 95, Mean Corpuscular Hemoglobin 31.4H, Mean Corpuscular Hemoglobin Concent 33.0, Red Cell Distribution Width 12.6, Platelet Count 210, Mean Platelet Volume 8.0, Neutrophils (%) (Auto) 56.8, Lymphocytes (%) (Auto) 28.9, Monocytes (%) (Auto) 8.3, Eosinophils (%) (Auto) 5.4H, Basophils (%) (Auto ) 0.6, Sodium Level 142, Potassium Level 5.1H, Chloride Level 104, Carbon Dioxide Level 21, Anion Gap 17H, Blood Urea Nitrogen 35H, Creatinine 1.7H, Estimat Glomerular Filtration Rate , Glucose Level 176H, Uric Acid 6.9, Calcium Level 9.2, Phosphorus Level 4.1, Magnesium Level 1.7, Total Bilirubin 0.2, Aspartate Amino Transf (AST/SGOT) 32, Alanine Aminotransferase (ALT/SGPT) 12, Alkaline Phosphatase 90, Troponin I < 0.30, Total Protein 7.0, Albumin 3.9, Globulin 3.1, Albumin/Globulin Ratio 1.2 10/24/16 06:30: Urine Eosinophils None seen Current Medications Medications (Trade) Dose Ordered Sig/Asha Route PRN Reason Start Time Stop Time Status Last Admin Dose Admin Acetaminophen (Tylenol) 650 mg Q4H PRN ORAL FEVER 10/21/16 15:45 11/20/16 15:44 Albuterol/ Ipratropium (DuoNeb 0.5-3(2.5)mg/3ml) 3 ml Q4H PRN HHN Shortness of Breath 10/21/16 15:45 10/26/16 15:44 Amlodipine Besylate (Norvasc) 2.5 mg Q12HR ORAL 10/22/16 21:00 11/21/16 20:59 10/24/16 08:17 Aspirin (ASA) 162 mg DAILY ORAL 10/21/16 17:00 11/20/16 16:59 10/24/16 08:16 Atorvastatin Calcium 20 mg 20 mg BEDTIME ORAL 10/21/16 21:00 11/20/16 20:59 10/23/16 20:29 Carvedilol (Coreg) 25 mg EVERY 12 HOURS ORAL 10/21/16 21:00 11/20/16 20:59 10/24/16 08:16 Ceftriaxone Sodium/Dextrose (Rocephin/D5W) 55 ml @ 110 mls/hr Q24H IVPB 10/22/16 16:00 10/29/16 15:59 10/23/16 17:05 Dextrose (Dextrose 50%) STAT PRN IV Hypoglycemia 10/21/16 15:45 11/20/16 15:44 Diltiazem HCl (Cardizem) 10 mg Q1H PRN IV heart rate more than 120, 10/21/16 15:45 11/20/16 15:44 Docusate Sodium (Colace) 250 mg TWICE A DAY ORAL 10/22/16 18:00 11/21/16 17:59 10/24/16 08:16 Hydralazine HCl (Apresoline) 25 mg Q6H PRN ORAL SBP above 160 10/22/16 16:00 11/21/16 15:59 Insulin Aspart (NovoLOG) BEFORE MEALS AND HS SUBQ 10/21/16 16:30 11/20/16 16:29 10/24/16 12:06 Morphine Sulfate (Morphine Sulfate) 2 mg Q4H PRN IVP severe Pain (Pain Scale 7-10) 10/21/16 15:45 10/28/16 15:44 Nitroglycerin (Ntg) 0.4 mg Q5M PRN SL Prn Chest Pain 10/21/16 15:45 11/20/16 15:44 Ondansetron HCl (Zofran) 4 mg Q6H PRN IVP Nausea & Vomiting 10/21/16 15:45 11/20/16 15:44 Pantoprazole (Protonix) 40 mg DAILY ORAL 10/22/16 09:00 11/21/16 08:59 10/24/16 08:17 Polyethylene Glycol (Miralax) 17 gm DAILYPRN PRN ORAL Constipation 10/21/16 15:45 11/20/16 15:44 Temazepam (Restoril) 15 mg HSPRN PRN ORAL Insomnia 10/21/16 15:45 10/28/16 15:44 10/24/16 00:03 Warfarin Sodium (Coumadin per pharmacy) 1 ea DAILY PRN MISC PER RX PROTOCOL 10/21/16 16:15 11/20/16 16:14 Chas ([facility])Tonie NP Oct 24, 2016 12:48
[2016-10-24] MEDS ORDERED: Tubing IV Secondary IV ONE (14:39)
[2016-10-24] MEDS ORDERED: NS 275ml ONE (14:39)
[2016-10-24] MEDS: cefTRIAXone 1 GM in D5W 55 ML IVPB SCH (15:43)
--- NOTE | 2016-10-24 16:13 | Cardiology Report ---
APPROVED REPORT EKG Measurement Heart [id number] 230P89 [id number] Sinus rhythm with sinus arrhythmia with 1st degree AV block Cannot rule out Anterior infarct, age undetermined Abnormal ECG
[2016-10-24 16:28] VITALS: BP 147/87
[2016-10-24 20:00] VITALS: BP 157/80
[2016-10-24] MEDS: Atorvastatin 20mg tab ORAL SCH (21:08)
[2016-10-25] VITALS: BP 120/61
[2016-10-25 04:00] VITALS: BP 114/60
[2016-10-25 05:21] LABS: INR 3.2 (0.9-1.1); PROTHROMBIN TIME 33.5 SEC (9.30-11.50)
[2016-10-25] MEDS: NovoLOG Insulin Flexpen SUBQ SCH ×4 (06:46→20:46)
[2016-10-25 08:00] VITALS: BP 121/75
[2016-10-25] MEDS: Docusate 250mg cap ORAL SCH ×2 (09:19→17:57)
[2016-10-25] MEDS: Aspirin Baby 81mg ORAL SCH (09:19)
[2016-10-25] MEDS: Carvedilol 25mg Tab ORAL SCH ×2 (09:20→20:43)
--- NOTE | 2016-10-25 09:58 | Pulmonology Progress Note ---
Assessment/Plan Assessment/Plan ASSESSMENT NSTEMI vs elevated troponin 2 to renal insufficiency CKD/Diabetic CAD with hx of CABG (?2001) UTI hyperkalemia DM with episode of hypoglycemia (resolved ) vascular dementia HTN hx of CVA PLAN OF CARE serial troponin trending down , per cardio possible due to renal insufficiency ( minimal elevation) last troponin negative Cardio follows ECHO with preserved EF 60-65% per cardio ischemic eval done in May 2016, no clear abnormalities were identified, ? fixed defect -poor quality overall cardio suggested another ischemic eval -but can be done as outpt started on ASA, statin, BB continue anticoagulation with Coumadin , keep INR in 2-3, today INR -3.6 hold Coumadin BP management with BB and CCB, optimize as needed lipid panel with borderline LDL-104 TSH ok nephro follows , renal parameters - no change, monitor renal parameters and lytes, avoid nephrotoxic last renal US in January with normal bilateral kidney echogenicity however on previous visits creat also with elevation, likely element of chronic treat hyperkalemia, monitor lytes in am abx, urine cx + E coli O2 HHN prn CXR no acute cardiopulmonary disease pulse ox stable on RA BS management with SS of insulin GI prophylaxis bowel regimen transfer to tele plan dc for tomorrow if cleared by cardio case discussed and evaluated by supervising physician Subjective Allergies: Coded Allergies: NO KNOWN DRUG ALLERGIES (Verified Allergy, Unknown, 09/26/15) Subjective denies chest pain, SOB but very unreliable in providing history afebrile, no leucocytosis, no signs of respiratory distress Objective Last 24 Hour Vital Signs Date Time Temp Pulse Resp B/P Pulse Ox O2 Delivery O2 Flow Rate FiO2 10/25/16 09:21 72 123/72 10/25/16 09:20 72 123/64 10/25/16 04:00 82 10/25/16 04:00 96.6 85 20 114/60 95 Room Air 10/25/16 00:00 98.1 78 20 120/61 99 Room Air 10/25/16 00:00 75 10/24/16 21:08 84 157/80 10/24/16 21:07 84 157/80 10/24/16 20:00 97.0 84 20 157/80 100 Room Air 10/24/16 19:12 82 16 Room Air 10/24/16 19:06 82 10/24/16 16:28 97.7 109 20 147/87 99 Room Air 10/24/16 16:00 84 10/24/16 12:38 71 10/24/16 12:00 97.7 69 20 129/67 99 Room Air Intake and Output 10/24/16 10/25/16 19:00 07:00 Intake Total 915 ml 360 ml Output Total 600 ml Balance 315 ml 360 ml Intake Oral 815 ml 360 ml IV Total 100 ml Output Urine Total 600 ml # Voids 4 Objective General Appearance: no acute distress HEENT: normocephalic, atraumatic, anicteric, mucous membranes moist Respiratory/Chest: lungs clear, no respiratory distress, no accessory muscle use Cardiovascular: regular rhythm - SR on tele , regularly irregular, no JVD, other Abdomen: normal bowel sounds, soft, non tender, non distended Genitourinary: normal external genitalia Extremities: no edema, pedal pulses normal Neurologic/Psychiatric: abnormal gait, alert, responsive, forgetful Musculoskeletal: atrophy - BLE Laboratory Tests 10/25/16 04:00: Prothrombin Time 33.5H, Prothromb Time International Ratio 3.2H Current Medications Medications (Trade) Dose Ordered Sig/Asha Route PRN Reason Start Time Stop Time Status Last Admin Dose Admin Acetaminophen (Tylenol) 650 mg Q4H PRN ORAL FEVER 10/21/16 15:45 11/20/16 15:44 Albuterol/ Ipratropium (DuoNeb 0.5-3(2.5)mg/3ml) 3 ml Q4H PRN HHN Shortness of Breath 10/21/16 15:45 10/26/16 15:44 Amlodipine Besylate (Norvasc) 2.5 mg Q12HR ORAL 10/22/16 21:00 11/21/16 20:59 10/25/16 09:21 Aspirin (ASA) 162 mg DAILY ORAL 10/21/16 17:00 11/20/16 16:59 10/25/16 09:19 Atorvastatin Calcium 20 mg 20 mg BEDTIME ORAL 10/21/16 21:00 11/20/16 20:59 10/24/16 21:08 Carvedilol (Coreg) 25 mg EVERY 12 HOURS ORAL 10/21/16 21:00 11/20/16 20:59 10/25/16 09:20 Ceftriaxone Sodium/Dextrose (Rocephin/D5W) 55 ml @ 110 mls/hr Q24H IVPB 10/22/16 16:00 10/29/16 15:59 10/24/16 15:43 Dextrose (Dextrose 50%) STAT PRN IV Hypoglycemia 10/21/16 15:45 11/20/16 15:44 Diltiazem HCl (Cardizem) 10 mg Q1H PRN IV heart rate more than 120, 10/21/16 15:45 11/20/16 15:44 Docusate Sodium (Colace) 250 mg TWICE A DAY ORAL 10/22/16 18:00 11/21/16 17:59 10/25/16 09:19 Hydralazine HCl (Apresoline) 25 mg Q6H PRN ORAL SBP above 160 10/22/16 16:00 11/21/16 15:59 Insulin Aspart (NovoLOG) BEFORE MEALS AND HS SUBQ 10/21/16 16:30 11/20/16 16:29 10/25/16 06:46 Morphine Sulfate (Morphine Sulfate) 2 mg Q4H PRN IVP severe Pain (Pain Scale 7-10) 10/21/16 15:45 10/28/16 15:44 Nitroglycerin (Ntg) 0.4 mg Q5M PRN SL Prn Chest Pain 10/21/16 15:45 11/20/16 15:44 Ondansetron HCl (Zofran) 4 mg Q6H PRN IVP Nausea & Vomiting 10/21/16 15:45 11/20/16 15:44 Pantoprazole (Protonix) 40 mg DAILY ORAL 10/22/16 09:00 11/21/16 08:59 10/25/16 09:19 Polyethylene Glycol (Miralax) 17 gm DAILYPRN PRN ORAL Constipation 10/21/16 15:45 11/20/16 15:44 Temazepam (Restoril) 15 mg HSPRN PRN ORAL Insomnia 10/21/16 15:45 10/28/16 15:44 10/24/16 21:09 Warfarin Sodium (Coumadin per pharmacy) 1 ea DAILY PRN MISC PER RX PROTOCOL 10/21/16 16:15 11/20/16 16:14 Chas ([facility])Tonie NP Oct 25, 2016 09:58
--- NOTE | 2016-10-25 11:21 | General Progress Note ---
Assessment/Plan Status: stable Assessment/Plan Status: - ACS (acute coronary syndrome) - CKD / Diabetic - Hyperkalemia - Diabetes mellitus - Vascular dementia - History of CVA (cerebrovascular accident) - UTI Plan: no labs today Adjust BP meds- Avoid Nephrotoxics- Monitor renal parameters antibiotics- Urine studies Subjective ROS Limited/Unobtainable: No Constitutional: Reports: malaise Allergies: Coded Allergies: NO KNOWN DRUG ALLERGIES (Verified Allergy, Unknown, 09/26/15) Objective Last 24 Hour Vital Signs Date Time Temp Pulse Resp B/P Pulse Ox O2 Delivery O2 Flow Rate FiO2 10/25/16 09:21 72 123/72 10/25/16 09:20 72 123/64 10/25/16 08:00 97.5 77 20 121/75 100 Room Air 10/25/16 06:35 80 16 Room Air 10/25/16 04:00 82 10/25/16 04:00 96.6 85 20 114/60 95 Room Air 10/25/16 00:00 98.1 78 20 120/61 99 Room Air 10/25/16 00:00 75 10/24/16 21:08 84 157/80 10/24/16 21:07 84 157/80 10/24/16 20:00 97.0 84 20 157/80 100 Room Air 10/24/16 19:12 82 16 Room Air 10/24/16 19:06 82 10/24/16 16:28 97.7 109 20 147/87 99 Room Air 10/24/16 16:00 84 10/24/16 12:38 71 10/24/16 12:00 97.7 69 20 129/67 99 Room Air Intake and Output 10/24/16 10/25/16 19:00 07:00 Intake Total 915 ml 360 ml Output Total 600 ml Balance 315 ml 360 ml Intake Oral 815 ml 360 ml IV Total 100 ml Output Urine Total 600 ml # Voids 4 Laboratory Tests 10/25/16 04:00: Prothrombin Time 33.5H, Prothromb Time International Ratio 3.2H Height (Feet): 5 Height (Inches): 1.00 Weight (Pounds): 160 General Appearance: no apparent distress Objective other PE not changed ROMELIA HAMPTON Oct 25, 2016 11:21
[2016-10-25] MEDS ORDERED: DuoNeb 0.5-3(2.5)mg/3ml neb HHN PRN ×2 (11:45→19:45)
[2016-10-25 12:00] VITALS: BP 149/79
--- NOTE | 2016-10-25 14:31 | Cardiology Progress Note ---
Assessment/Plan Assessment/Plan nstemi abnormal top may be related to renal insuf cad hsx renal insuf htn uti has an stress test 05/2016 poor study statin ecotrin for now abx for uti may consider repeat ischemia eval as the last one was poor quality as outpt last trop normal to med surg Subjective Respiratory: Denies: SOB with excertion, shortness of breath Genitourinary: Denies: burning Objective Last 24 Hour Vital Signs Date Time Temp Pulse Resp B/P Pulse Ox O2 Delivery O2 Flow Rate FiO2 10/25/16 12:00 90 10/25/16 12:00 97.3 88 20 149/79 100 Room Air 10/25/16 09:21 72 123/72 10/25/16 09:20 72 123/64 10/25/16 08:00 97.5 77 20 121/75 100 Room Air 10/25/16 08:00 81 10/25/16 06:35 80 16 Room Air 10/25/16 04:00 82 10/25/16 04:00 96.6 85 20 114/60 95 Room Air 10/25/16 00:00 98.1 78 20 120/61 99 Room Air 10/25/16 00:00 75 10/24/16 21:08 84 157/80 10/24/16 21:07 84 157/80 10/24/16 20:00 97.0 84 20 157/80 100 Room Air 10/24/16 19:12 82 16 Room Air 10/24/16 19:06 82 10/24/16 16:28 97.7 109 20 147/87 99 Room Air 10/24/16 16:00 84 General Appearance: no apparent distress, alert Cardiovascular: normal rate, regular rhythm Respiratory/Chest: lungs clear Abdomen: normal bowel sounds, non tender, soft Extremities: no swelling Intake and Output 10/24/16 10/25/16 19:00 07:00 Intake Total 915 ml 360 ml Output Total 600 ml Balance 315 ml 360 ml Intake Oral 815 ml 360 ml IV Total 100 ml Output Urine Total 600 ml # Voids 4 Laboratory Tests Test 10/25/16 04:00 Prothrombin Time 33.5 SEC (9.30-11.50) H Prothromb Time International Ratio 3.2 (0.9-1.1) H JEFFERY BRADY Oct 25, 2016 14:31
[2016-10-25 16:00] VITALS: BP 150/74
[2016-10-25] MEDS: cefTRIAXone 1 GM in D5W 55 ML IVPB SCH (16:17)
[2016-10-25] MEDS ORDERED: Nitroglycerin Subl 0.4mg tab (Bottle Of 25) SL PRN (19:05)
[2016-10-25] MEDS ORDERED: Miralax 17gm pkt ORAL PRN (19:30)
[2016-10-25] MEDS ORDERED: Morphine Sulfate 2mg/ml Inj IVP PRN (19:45)
[2016-10-25] MEDS ORDERED: Diltiazem 25mg/5ml IV PRN (19:45)
[2016-10-25 20:00] VITALS: BP 164/78
[2016-10-25] MEDS ORDERED: HydrALAZINE 25mg tab ORAL PRN (20:00)
[2016-10-25] MEDS ORDERED: Atorvastatin 20mg tab ORAL SCH (21:00)
[2016-10-26 04:00] VITALS: BP 122/51
[2016-10-26 04:24] LABS: BASOPHILS % (AUTO) 0.5 % (0.0-2.0); EOSINOPHILS % (AUTO) 5.8 % (0.0-3.0); LYMPHOCYTES % (AUTO) 28.2 % (20.0-45.0); MEAN CORPUSCULAR HEMOGLOBIN 30.7 PG (27.0-31.0); MEAN CORPUSCULAR HGB CONC 32.8 G/DL (32.0-36.0); MEAN CORPUSCULAR VOLUME 94 FL (80-99); MEAN PLATELET VOLUME 6.8 FL (6.5-10.1); MONOCYTES % (AUTO) 7.7 % (1.0-10.0); NEUTROPHILS % (AUTO) 57.8 % (45.0-75.0); PLATELET COUNT 226 K/UL (150-450); RED BLOOD COUNT 3.36 M/UL (4.20-5.40); RED CELL DISTRIBUTION WIDTH 12.6 % (11.6-14.8); WHITE BLOOD COUNT 6.2 K/UL (4.8-10.8)
[2016-10-26 04:32] LABS: PROTHROMBIN TIME 20.9 SEC (9.30-11.50)
[2016-10-26 04:40] LABS: ALANINE AMINOTRANSFERASE 11 U/L (3-33); ALBUMIN/GLOBULIN RATIO 1.1 (1.0-2.7); ANION GAP 16 (5-15); ASPARTATE AMINO TRANSFERASE 23 U/L (5-40); CALCIUM 9.1 mg/dL (8.6-10.2); CARBON DIOXIDE 20 mEQ/L (20-30); CHLORIDE 106 mEQ/L (98-107); CREATININE 1.5 mg/dL (0.5-0.9); HEMOLYSIS 0; MAGNESIUM 1.6 mg/dL (1.7-2.5); PHOSPHORUS 3.6 mg/dL (2.5-4.8); POTASSIUM 4.1 mEQ/L (3.4-4.9); SODIUM 142 mEQ/L (135-145); TOTAL PROTEIN 6.8 g/dL (6.6-8.7)
[2016-10-26] MEDS: NovoLOG Insulin Flexpen SUBQ SCH ×3 (06:03→16:18)
[2016-10-26 06:54] LABS: URIC ACID 7.3 mg/dL (3.0-7.5)
[2016-10-26 08:04] VITALS: BP 143/66
[2016-10-26] MEDS: Carvedilol 25mg Tab ORAL SCH ×2 (08:32→20:02)
[2016-10-26] MEDS: Docusate 250mg cap ORAL SCH ×2 (08:32→17:54)
[2016-10-26] MEDS ORDERED: Aspirin Baby 81mg ORAL SCH (09:00)
--- NOTE | 2016-10-26 10:57 | General Progress Note ---
Assessment/Plan Status: stable Status Narrative Cr down to 1.5 Assessment/Plan Status: - ACS (acute coronary syndrome) - CKD / Diabetic - Hyperkalemia - Diabetes mellitus - Vascular dementia - History of CVA (cerebrovascular accident) - UTI Plan: Adjust BP Meds- Avoid Nephrotoxics- Monitor renal parameters antibiotics- Urine studies per consultants Subjective ROS Limited/Unobtainable: No Constitutional: Reports: malaise Allergies: Coded Allergies: NO KNOWN DRUG ALLERGIES (Verified Allergy, Unknown, 09/26/15) Objective Last 24 Hour Vital Signs Date Time Temp Pulse Resp B/P Pulse Ox O2 Delivery O2 Flow Rate FiO2 10/26/16 10:23 99.0 10/26/16 08:32 94 143/66 10/26/16 08:32 94 143/66 10/26/16 08:04 99.0 94 20 143/66 100 Room Air 10/26/16 06:40 96 18 Room Air 10/26/16 04:00 98.1 90 20 122/51 Room Air 10/25/16 20:43 88 164/78 10/25/16 20:43 88 164/78 10/25/16 20:00 99.0 88 18 164/78 99 Room Air 10/25/16 16:00 96 10/25/16 16:00 98.1 85 18 150/74 98 Room Air 10/25/16 12:00 90 10/25/16 12:00 97.3 88 20 149/79 100 Room Air Intake and Output 10/25/16 10/26/16 19:00 07:00 Intake Total 55 ml Balance 55 ml IV Total 55 ml Laboratory Tests 10/25/16 19:30: Urine Eosinophils None seen 10/26/16 04:00: White Blood Count 6.2, Red Blood Count 3.36L, Hemoglobin 10.3L, Hematocrit 31.5L , Mean Corpuscular Volume 94, Mean Corpuscular Hemoglobin 30.7, Mean Corpuscular Hemoglobin Concent 32.8, Red Cell Distribution Width 12.6, Platelet Count 226, Mean Platelet Volume 6.8, Neutrophils (%) (Auto) 57.8, Lymphocytes (% ) (Auto) 28.2, Monocytes (%) (Auto) 7.7, Eosinophils (%) (Auto) 5.8H, Basophils (%) (Auto) 0.5, Prothrombin Time 20.9H, Prothromb Time International Ratio 2.0H , Sodium Level 142, Potassium Level 4.1, Chloride Level 106, Carbon Dioxide Level 20, Anion Gap 16H, Blood Urea Nitrogen 30H, Creatinine 1.5H, Estimat Glomerular Filtration Rate , Glucose Level 184H, Uric Acid 7.3, Calcium Level 9.1, Phosphorus Level 3.6, Magnesium Level 1.6L, Total Bilirubin 0.3, Aspartate Amino Transf (AST/SGOT) 23, Alanine Aminotransferase (ALT/SGPT) 11, Alkaline Phosphatase 90, Total Protein 6.8, Albumin 3.6, Globulin 3.2, Albumin/Globulin Ratio 1.1 Height (Feet): 5 Height (Inches): 1.00 Weight (Pounds): 160 General Appearance: no apparent distress Objective other PE not changed ROMELIA HAMPTON Oct 26, 2016 10:57
[2016-10-26 11:08] VITALS: BP 146/78
[2016-10-26 15:49] VITALS: BP 146/69
[2016-10-26] MEDS ORDERED: cefTRIAXone 1 GM in D5W 55 ML IVPB SCH (16:00)
--- NOTE | 2016-10-26 16:48 | Pulmonology Progress Note ---
Assessment/Plan Problems: (1) NSTEMI (non-ST elevated myocardial infarction) (2) Hyperkalemia (3) ATN (acute tubular necrosis) (4) Diabetes mellitus (5) Vascular dementia Assessment/Plan Assessment/Plan PLAN OF CARE serial troponin renal insufficiency last troponin negative Cardio follows ECHO started on ASA, statin, BB Subjective ROS Limited/Unobtainable: No Respiratory: Reports: dyspnea at rest, productive cough, shortness of breath Cardiovascular: Reports: chest pain, palpitations Allergies: Coded Allergies: NO KNOWN DRUG ALLERGIES (Verified Allergy, Unknown, 09/26/15) Objective Last 24 Hour Vital Signs Date Time Temp Pulse Resp B/P Pulse Ox O2 Delivery O2 Flow Rate FiO2 10/26/16 15:49 97.2 86 18 146/69 100 Room Air 10/26/16 11:08 97.7 81 20 146/78 100 Room Air 10/26/16 10:23 99.0 10/26/16 08:32 94 143/66 10/26/16 08:32 94 143/66 10/26/16 08:04 99.0 94 20 143/66 100 Room Air 10/26/16 06:40 96 18 Room Air 10/26/16 04:00 98.1 90 20 122/51 Room Air 10/25/16 20:43 88 164/78 10/25/16 20:43 88 164/78 10/25/16 20:00 99.0 88 18 164/78 99 Room Air Intake and Output 10/25/16 10/26/16 19:00 07:00 Intake Total 55 ml Balance 55 ml IV Total 55 ml General Appearance: no acute distress HEENT: normocephalic, atraumatic, PERRL Respiratory/Chest: chest wall non-tender, lungs clear Breasts: no masses Cardiovascular: normal peripheral pulses, normal rate, regular rhythm, no JVD Abdomen: normal bowel sounds, soft, non tender, no organomegaly Genitourinary: normal external genitalia Extremities: no cyanosis Skin: rash, lesions Neurologic/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: 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, no motor/sensory deficits Laboratory Tests 10/25/16 19:30: Urine Eosinophils None seen 10/26/16 04:00: White Blood Count 6.2, Red Blood Count 3.36L, Hemoglobin 10.3L, Hematocrit 31.5L , Mean Corpuscular Volume 94, Mean Corpuscular Hemoglobin 30.7, Mean Corpuscular Hemoglobin Concent 32.8, Red Cell Distribution Width 12.6, Platelet Count 226, Mean Platelet Volume 6.8, Neutrophils (%) (Auto) 57.8, Lymphocytes (% ) (Auto) 28.2, Monocytes (%) (Auto) 7.7, Eosinophils (%) (Auto) 5.8H, Basophils (%) (Auto) 0.5, Prothrombin Time 20.9H, Prothromb Time International Ratio 2.0H , Sodium Level 142, Potassium Level 4.1, Chloride Level 106, Carbon Dioxide Level 20, Anion Gap 16H, Blood Urea Nitrogen 30H, Creatinine 1.5H, Estimat Glomerular Filtration Rate , Glucose Level 184H, Uric Acid 7.3, Calcium Level 9.1, Phosphorus Level 3.6, Magnesium Level 1.6L, Total Bilirubin 0.3, Aspartate Amino Transf (AST/SGOT) 23, Alanine Aminotransferase (ALT/SGPT) 11, Alkaline Phosphatase 90, Total Protein 6.8, Albumin 3.6, Globulin 3.2, Albumin/Globulin Ratio 1.1 Current Medications Medications (Trade) Dose Ordered Sig/Asha Route PRN Reason Start Time Stop Time Status Last Admin Dose Admin Acetaminophen (Tylenol) 650 mg Q4H PRN ORAL T>100.5 10/25/16 19:45 11/24/16 19:44 10/26/16 09:24 Albuterol/ Ipratropium (DuoNeb 0.5-3(2.5)mg/3ml) 3 ml Q4H PRN HHN Shortness of Breath 10/25/16 19:45 10/30/16 19:44 Amlodipine Besylate (Norvasc) 2.5 mg Q12HR ORAL 10/25/16 21:00 11/24/16 20:59 10/26/16 08:32 Aspirin (ASA) 162 mg DAILY ORAL 10/26/16 09:00 11/25/16 08:59 10/26/16 08:32 Atorvastatin Calcium (Lipitor) 20 mg BEDTIME ORAL 10/25/16 21:00 11/24/16 20:59 10/25/16 20:43 Carvedilol (Coreg) 25 mg EVERY 12 HOURS ORAL 10/25/16 21:00 11/24/16 20:59 10/26/16 08:32 Ceftriaxone Sodium/Dextrose (Rocephin/D5W) 55 ml @ 110 mls/hr Q24H IVPB 10/26/16 16:00 11/02/16 15:59 10/26/16 16:08 Dextrose (Dextrose 50%) STAT PRN IV Hypoglycemia 10/26/16 15:45 11/25/16 15:44 Docusate Sodium (Colace) 250 mg TWICE A DAY ORAL 10/26/16 09:00 11/25/16 08:59 10/26/16 08:32 Hydralazine HCl (Apresoline) 25 mg Q6H PRN ORAL SBP above 160 10/25/16 20:00 11/24/16 19:59 Insulin Aspart (NovoLOG) BEFORE MEALS AND HS SUBQ 10/25/16 21:00 11/24/16 20:59 10/26/16 16:18 Morphine Sulfate (Morphine Sulfate) 2 mg Q4H PRN IVP severe Pain (Pain Scale 7-10) 10/25/16 19:45 11/01/16 19:44 Nitroglycerin (Ntg) 0.4 mg Q5M PRN SL Prn Chest Pain 10/25/16 19:05 11/24/16 19:04 Ondansetron HCl (Zofran) 4 mg Q6H PRN IVP Nausea & Vomiting 10/25/16 21:45 11/24/16 21:44 Pantoprazole (Protonix) 40 mg DAILY ORAL 10/26/16 09:00 11/25/16 08:59 10/26/16 08:32 Polyethylene Glycol (Miralax) 17 gm DAILYPRN PRN ORAL Constipation 10/25/16 19:30 11/24/16 19:29 Temazepam (Restoril) 15 mg HSPRN PRN ORAL Insomnia 10/26/16 21:00 11/02/16 20:59 Warfarin Sodium (Coumadin per pharmacy) 1 ea DAILY PRN MISC PER RX PROTOCOL 10/25/16 20:00 11/24/16 19:59 Warfarin Sodium (Coumadin) 2 mg COUMADIN ONCE ORAL 10/26/16 17:00 10/26/16 17:01 JUAN LUIS ASHLEY Oct 26, 2016 16:48
[2016-10-26] MEDS ORDERED: Warfarin Sodium 2mg ORAL ONE (17:00)
[2016-10-26 20:00] VITALS: BP 150/70
[2016-10-26 20:02] VITALS: BP 150/70
[2016-10-26] MEDS ORDERED: NS 275ml ONE (20:10)
--- NOTE | 2016-10-27 08:39 | Discharge Summary ---
Discharge Summary Hospital Course Date of Admission Oct 21, 2016 at 12:29 Date of Discharge Oct 26, 2016 at 20:11 Admitting Diagnosis n-stemi,hyperkalemia HPI Ana Maria Moran is a 76 year old female who was admitted on Oct 21, 2016 at 12: 29 for N-Stemi,Hyperkalemia Hospital Course dc summary dictated #[id number] Discharge Medications Continued Medications: Acetaminophen (Acetaminophen 8 Hour) 650 Mg Tablet 650 MG ORAL Q6H, TAB Amlodipine Besylate (Norvasc) 2.5 Mg Tab 2.5 MG ORAL DAILY, #30 TAB Ascorbic Acid* (Vitamin C*) 250 Mg Tablet 250 MG ORAL DAILY, #30 TAB 0 Refills Atorvastatin Calcium* (Atorvastatin Calcium*) 20 Mg Tablet 10 MG ORAL BEDTIME, TAB Carvedilol (Coreg) 25 Mg Tab 25 MG ORAL EVERY 12 HOURS, #60 TAB Docusate Sodium* (Docusate Sodium*) 100 Mg Capsule 100 MG ORAL TWICE A DAY, CAP Ferrous Sulfate* (Ferrous Sulfate*) 325 Mg Tablet 325 MG ORAL DAILY, #30 TAB 0 Refills Hydrocodone Bit/Acetaminophen 5-325* ([place] 5-325*) 1 Each Tablet 1 TAB ORAL Q4H PRN for For Pain, #20 TAB 0 Refills Insulin Aspart (Novolog Flexpen) 100 Units/Ml Pen Insulin Detemir (Levemir Flexpen) 100 Unit/1 Ml Insuln.pen 15 UNITS SUBQ Q24H, #1 EA Insulin Glargine (Lantus) 5 Units Vial 20 SUBQ BEDTIME, #1 EA 0 Refills Lactulose (Lactulose*) 20 Gm/30 Ml Solution 30 ML ORAL, ML 0 Refills Morphine Sulfate* (Morphine Sulfate*) 2 Mg/1 Ml Cartridge 2 MG SUBQ EVERY 6 HOURS PRN, #10 EA severe pain Multivitamin With Minerals (Multivitamins With Minerals*) 1 Each Tablet 1 TAB ORAL DAILY, TAB Nitroglycerin (Nitroglycerin) 0.4 Mg Tab.subl 0.4 MG SL, TAB Polyethylene Glycol 3350* (Miralax*) 17 Gm Powd.pack 17 GM ORAL HSPRN PRN for Constipation, #30 PACK Ranitidine Hcl* (Zantac*) 150 Mg Tablet 150 MG ORAL TWICE A DAY, #30 TAB Risperidone* (Risperdal*) 1 Mg Tablet 1 MG ORAL BEDTIME, #30 TAB Vitamin D (Vitamin D3) 400 Intlu Cap 400 UNITS ORAL DAILY, CAP Warfarin Sod* (Coumadin*) 1 Mg Tablet 1.5 MG ORAL DAILY, TAB Warfarin Sod* (Coumadin*) 2.5 Mg Tablet 2.5 MG ORAL DAILY, #5 TAB pharmacy to dose to keep INR 2-3 [Warfarin RX monitoring] () 1 EA MISC 1 EA MISC DAILY PRN for Per rx protocol, #30 Discharge Condition Upon Discharge: stable Discharge Disposition Patient was discharged to SNF/Subacute Facility(03) Discharge Diagnoses: Chas ([facility]),Tonie FELIZ Oct 27, 2016 08:39
--- NOTE | 2016-10-27 23:48 | Discharge Summary 2 SIG ---
DATE OF ADMISSION: 10/21/2016 DATE OF DISCHARGE: 10/26/2016 REASON FOR ADMISSION: 76 years old female was sent from the nursing home facility due to positive troponin - 0.5. The patient, however, did not have any chest pain and denied any symptoms upon arrival to the emergency room. There was no dyspnea, palpitation, or shortness of breath. Patient, however, is a poor historian, secondary to underlying dementia. The patient did complain of abdominal pain. Described as aching, cramping, more in the mid of the abdomen. Denied dysuria. The patient has a prior medical cardiac history including coronary artery bypass graft in 2001. Emergency department workup revealed positive troponin without complaints of chest pain. Potassium was elevated of 6.1, evidence of renal insufficiency with BUN 41 and creatinine 1.6. EKG showed sinus rhythm, no ischemic changes, no ST changes, and no ectopy. Chest x-ray revealed no consolidation, no effusion, and no pneumothorax, revealed evidence of coronary artery bypass graft and calcification of the aorta. On room air pulse oximetry was stable. The patient was hemodynamically stable. She denied chest pain and palpitations, dyspnea on exertion,. Urinalysis revealed pyuria and possible urinary tract infection. In the emergency department, the patient dropped blood sugar and D50 water one ampule given. Repeated blood sugar was 150. The patient admitted to [facility] for further management. ADMITTING DIAGNOSES: 1. Non-ST elevation myocardial infarction. 2. Hyperkalemia. 3. Urinary tract infection. 4. Renal insufficiency. HOSPITAL COURSE: The patient was in [facility]. Cardiology consult and Renal consult both requested. Serial troponin trending down per Cardiology, elevated troponin possibly due to the renal insufficiency since troponin only minimally elevated. Last troponin ordered, was negative. Echocardiogram revealed preserved ejection fraction of 60% to 65%. Ischemic evaluation done in 05/2016 with no clear abnormalities identified, possible fixed defect, however, overall it was a poor quality of the stress test. Food Service recommended repeat stress test as an outpatient as needed. The patient started on aspirin, statin, and beta-carmen. Anticoagulation with Coumadin was continued. Blood pressure was managed with beta-carmen and calcium-channel blocked, was stable. Lipid panel revealed borderline LDL of 104. TSH was stable. Finish Saw Operator followed. Renal parameters started to trend down. Potassium stable after treatment. Renal ultrasound was done in January last year revealed normal bilateral kidney echogenicity. On previous visits, creatinine also with some elevation, so per forestry aide likely element of chronic renal insufficiency as well. Antibiotic provided for urinary tract infection. Urine culture grew E. coli. Supplemental oxygen and pulmonary toilet provided as needed. Stable pulse oximetry on the room air. Blood sugar was managed with sliding scale of insulin and was stable. Gastrointestinal prophylaxis provided. Bowel regimen instituted. The patient cleared by dietary services director and forestry aide for discharge. Chronic kidney disease, likely due to diabetic nephropathy per forestry aide. DISCHARGE DIAGNOSES: 1. Non-ST elevation myocardial infarction versus elevated troponin, secondary to renal insufficiency. 2. Chronic renal insufficiency, likely diabetic nephropathy. 3. Coronary artery disease with history of coronary artery bypass graft. 4. Urinary tract infection. 5. Hyperkalemia, resolved. 6. Diabetes mellitus with episode of hypoglycemia, resolved. 7. Vascular dementia. 8. Hypertension. 9. History of cerebrovascular accident. DISCHARGE MEDICATIONS: See medication reconciliation list. DISCHARGE INSTRUCTIONS: The patient was discharged to nursing home facility. FOLLOWUP: Follow up with medical doctor at the facility. Recommended a stress test as an outpatient if symptoms asymptomatic. Anthony Solomon M.D. [facility] N[facility] DR: JUDITH JOB#: [id number] CC: KYLE
--- NOTE | 2016-11-10 14:19 | Cardiology Report ---
APPROVED REPORT EXAM: Two-dimensional and M-mode echocardiogram with Doppler and color Doppler. INDICATION Left Ventricular Function M-Mode DIMENSIONS IVSd.8 (0.7-1.1cm)Left Atrium (MM)3.8 (1.6-4.0cm) LVDd3.8 (3.5-5.6cm)Aortic Root2.6 (2.0-3.7cm) PWd.8 (0.7-1.1cm)Aortic Cusp Exc.1.5 (1.5-2.0cm) LVDs3.8 (2.5-4.0cm) PWs1.7 cm Technically difficult study due to poor acoustic windows. Study quality precludes accurate assessment of regional wall motion. Normal left ventricular chamber size, systolic function and wall motion. Left ventricular ejection fraction estimated to be 60-65 %. No evidence of ventricular hypertrophy. No evidence of pericardial fat or effusion. All other cardiac chamber sizes are within normal limits. Mild focal aortic valve sclerosis with adequate cusp excursion. Mildly thickened mitral valve leaflets with normal excursion. Mild mitral annulus and aortic root calcification. Pulmonic valve not well visualized. Normal tricuspid valve structure. IVC not obtainable. A color flow and spectral Doppler study was performed and revealed: Trace aortic regurgitation. Severe mitral regurgitation. Mitral diastolic velocities suggest reduced left ventricular relaxation (Grade I). Trace tricuspid regurgitation. No pulmonic regurgitation present.
== END 2016-10-26 20:11 | DRG 682 ==
LOC: EDBD 11:00 → EMR 11:18 → 2W 12:29 → EDBEDREQSVC 13:50 → EDBEDREQ 13:50 → 2W 10-23 07:07 → 4W 10-25 19:42
PROC: 02HV33Z Insertion of Infusion Device into Superior Vena Cava, Percutaneous Approach (ICD-10-PCS; principal; 2016-10-21)
DX: N17.0 Acute kidney failure with tubular necrosis (principal); I21.4 Non-ST elevation (NSTEMI) myocardial infarction; E11.21 Type 2 diabetes mellitus with diabetic nephropathy; I24.9 Acute ischemic heart disease, unspecified; N39.0 Urinary tract infection, site not specified; N17.9 Acute kidney failure, unspecified; Z95.1 Presence of aortocoronary bypass graft; E87.5 Hyperkalemia; I25.10 Atherosclerotic heart disease of native coronary artery without angina pectoris; E78.5 Hyperlipidemia, unspecified; K21.9 Gastro-esophageal reflux disease without esophagitis; I12.9 Hypertensive chronic kidney disease with stage 1 through stage 4 chronic kidney disease, or unspecified chronic kidney disease; N18.9 Chronic kidney disease, unspecified; F01.50 Vascular dementia, unspecified severity, without behavioral disturbance, psychotic disturbance, mood disturbance, and anxiety; Z86.73 Personal history of transient ischemic attack (TIA), and cerebral infarction without residual deficits; B96.20 Unspecified Escherichia coli [E. coli] as the cause of diseases classified elsewhere; R74.8 Abnormal levels of other serum enzymes; E11.649 Type 2 diabetes mellitus with hypoglycemia without coma; R10.9 Unspecified abdominal pain; Z79.01 Long term (current) use of anticoagulants; Z79.4 Long term (current) use of insulin; G62.9 Polyneuropathy, unspecified
CPT/HCPCS: 36415; 36569; 71010; 76937; 80053; 80061; 81003; 82550; 82607; 82728; 82746; 82962; 82977; 83036; 83540; 83550; 83735; 83880; 84100; 84300; 84443; 84484; 84550; 85025; 85610; 85730; 86140; 87081; 87086; 87181; 89050; 93005; 93306; 94664; J1815

== ENCOUNTER 2017-01-14 00:30 | Inpatient (IN) | payer MEDICARE, MEDICAID ==
[2017-01-14] VITALS (8 sets, daily range): BP systolic 144–161; BP diastolic 54–81
[~2017-01-14] VITALS: Ht 154.9 cm; Wt 66.2 kg
[2017-01-14 01:03] LABS: BASOPHILS % (AUTO) 0.8 % (0.0-2.0); EOSINOPHILS % (AUTO) 6.6 % (0.0-3.0); LYMPHOCYTES % (AUTO) 35.6 % (20.0-45.0); MEAN CORPUSCULAR HEMOGLOBIN 30.8 PG (27.0-31.0); MEAN CORPUSCULAR HGB CONC 32.4 G/DL (32.0-36.0); MEAN CORPUSCULAR VOLUME 95 FL (80-99); MEAN PLATELET VOLUME 6.8 FL (6.5-10.1); PLATELET COUNT 229 K/UL (150-450); RED BLOOD COUNT 3.82 M/UL (4.20-5.40); RED CELL DISTRIBUTION WIDTH 12.4 % (11.6-14.8); WHITE BLOOD COUNT 5.1 K/UL (4.8-10.8)
[2017-01-14 01:32] LABS: ALANINE AMINOTRANSFERASE 10 U/L (3-33); ALBUMIN/GLOBULIN RATIO 1.2 (1.0-2.7); ANION GAP 13 (5-15); ASPARTATE AMINO TRANSFERASE 18 U/L (5-40); CALCIUM 9.1 mg/dL (8.6-10.2); CARBON DIOXIDE 23 mEQ/L (20-30); CHLORIDE 107 mEQ/L (98-107); CREATININE 1.4 mg/dL (0.5-0.9); HEMOLYSIS 3; POTASSIUM 5.1 mEQ/L (3.4-4.9); SODIUM 143 mEQ/L (135-145); TOTAL PROTEIN 6.7 g/dL (6.6-8.7)
[2017-01-14 01:52] LABS: APPEARANCE,URINE CLEAR; KETONES,URINE NEGATIVE (NEGATIVE); LEUKOCYTE ESTERASE ,URINE 3+ (NEGATIVE); NITRITE,URINE NEGATIVE (NEGATIVE); PH,URINE 5 (4.5-8.0); PROTEIN,URINE 2+ (NEGATIVE); UROBILINOGEN,URINE NORMAL MG/DL (0.0-1.0)
[2017-01-14 01:57] LABS: BACTERIA,URINE FEW /HPF; RBC,URINE 0-2 /HPF (0 - 2); SQUAMOUS EPITHELIAL CELL,UR FEW /LPF (NONE/OCC); WBC,URINE TNTC /HPF (0 - 2)
--- NOTE | 2017-01-14 02:07 | Emergency Room Report ---
History of Present Illness General Chief Complaint: Abnormal Labs Source: EMS Present Illness HPI Is a 76-year-old female with history CVA. She stays in a half-way. She was sent here for abnormal labs with dehydration and not eating. History is limited in this patient because of poor historian. No nausea no vomiting. Does have generalize weakness. No other complaint. Allergies: Coded Allergies: NO KNOWN DRUG ALLERGIES (Verified Allergy, Unknown, 09/26/15) Patient History Past Medical History: see triage record, old chart reviewed, CVA/TIA, dementia Past Surgical History: other Pertinent Family History: none Social History: Denies: smoking Last Menstrual Period: none Now: No Immunizations: other Reviewed Nursing Documentation: PMH: Agreed, PSxH: Agreed Nursing Documentation-PMH Hx Cardiac Problems: Yes Hx Hypertension: Yes Hx Diabetes: Yes Hx Cancer: No Hx Gastrointestinal Problems: Yes - GERD Hx Neurological Problems: Yes - dementia Hx Cerebrovascular Accident: Yes - right side Hx Dementia: Yes Hx Peripheral Neuropathy: Yes Hx Weakness: Yes Review of Systems Constitutional: Reports: weakness Eye: Denies: blurred vision, eye pain ENT: Denies: ear pain, nose congestion, throat swelling Respiratory: Denies: cough, shortness of breath Cardiovascular: Denies: chest pain, palpitations Gastrointestinal: Denies: abdominal pain, diarrhea, nausea, vomiting Musculoskeletal: Denies: back pain, joint pain Skin: Denies: rash Neurological: Denies: headache, numbness Endocrine: Denies: increased thirst, increased urine Hematologic/Lymphatic: Denies: easy bruising All Other Systems: negative except mentioned in HPI Physical Exam Vital Signs Date Time Temp Pulse Resp B/P Pulse Ox O2 Delivery O2 Flow Rate FiO2 01/14/17 00:19 97.5 68 16 129/54 100 Room Air vitals normal Sp02 EP Interpretation: reviewed, normal General Appearance: well appearing, no apparent distress, alert Head: normocephalic, atraumatic Eyes: bilateral eye EOMI, bilateral eye PERRL ENT: hearing grossly normal, normal pharynx Neck: full range of motion, supple, no meningismus Respiratory: chest non-tender, lungs clear, normal breath sounds Cardiovascular #1: regular rate, rhythm, no murmur Gastrointestinal: normal bowel sounds, non tender, no mass, no organomegaly, no bruit, non-distended Musculoskeletal: back normal, normal range of motion Neurologic: other - No focal deficit Psychiatric: depressed affect Skin: warm/dry Medical Decision Making Diagnostic Impression: Primary Impression: UTI (urinary tract infection) Qualified Codes: N30.00 - Acute cystitis without hematuria Additional Impressions: Dehydration Acute encephalopathy ER Course She presents with weakness and dehydration. Probably secondary to infection from UTI. No focal deficit to indicate TIA or CVA. She grew out Escherichia coli in the past and is sensitive to most drugs except for Cipro and Levaquin. Rocephin given here. IV fluid given here. Will admit for further hydration. Lab Results Impression labs unremarkable Rhythm Strip Diag. Results EP Interpretation: yes Rate: 80 Rhythm: NSR, no PVC's, no ectopy Last Vital Signs Date Time Temp Pulse Resp B/P Pulse Ox O2 Delivery O2 Flow Rate FiO2 01/14/17 00:40 98.6 71 16 161/54 100 Room Air Status: improved Disposition: ADMITTED INPATIENT Condition: Serious DAMON RICHMOND M.D. Jan 14, 2017 02:07
[2017-01-14] MEDS ORDERED: cefTRIAXone 1 GM in NS 55 ML IVPB ONE (02:15)
[2017-01-14] MEDS ORDERED: LEVEMIR100 UNIT/1 SUBQ (02:25)
[2017-01-14] MEDS ORDERED: NORCO 5-325 TA1 EACH ORAL (02:25)
[2017-01-14] MEDS ORDERED: VITAMIN C250 MG ORAL (02:25)
[2017-01-14] MEDS ORDERED: COUMADIN2.5 MG ORAL (02:25)
[2017-01-14] MEDS ORDERED: NITROGLYCERIN0.4 MG SL (02:25)
[2017-01-14] MEDS ORDERED: LACTULOSE20 GM/301 ORAL (02:25)
[2017-01-14] MEDS ORDERED: NORVASC2.5 MG ORAL (02:25)
[2017-01-14] MEDS ORDERED: NOVOLIN R100 UNIT/1 SUBQ (02:25)
[2017-01-14] MEDS ORDERED: HydrALAZINE 10mg Tab ORAL PRN (07:00)
[2017-01-14] MEDS ORDERED: Miralax 17gm pkt ORAL PRN (07:00)
[2017-01-14] MEDS ORDERED: DuoNeb 0.5-3(2.5)mg/3ml neb HHN PRN (07:00)
[2017-01-14] MEDS ORDERED: Norco 5mg/325mg tab ORAL PRN (07:00)
[2017-01-14] MEDS ORDERED: Morphine Sulfate 2mg/ml Inj IVP PRN (07:00)
[2017-01-14] MEDS ORDERED: Nitroglycerin Subl 0.4mg tab (Bottle Of 25) SL PRN (07:00)
[2017-01-14] MEDS ORDERED: Cefepime HCl 1 GM in D5W 55 ML IVPB SCH (09:00)
[2017-01-14] MEDS: Lactulose 20gm/30ml UDC ORAL PRN ×2 (09:03→09:23)
[2017-01-14] MEDS: Carvedilol 25mg Tab ORAL SCH ×2 (09:03→21:26)
[2017-01-14] MEDS: Heparin 5000 units/ml inj SUBQ SCH ×2 (09:07→21:27)
[2017-01-14] MEDS ORDERED: Vancomycin 1 GM in D5W 275 ML IVPB ONE (10:00)
--- NOTE | 2017-01-14 10:34 | Consultation ---
Consult Note Consult Note asked to eval for renal failure 76 y old- admitted for uti and dehydration The patient is sent in from a [facility] facility Past Surgical History: CABG, other - lumbar fxs Hx Cardiac Problems: Yes Hx Hypertension: Yes Hx Diabetes: Yes - kidney disease Hx Gastrointestinal Problems: Yes - GERD Hx Neurological Problems: Yes - dementia Hx Cerebrovascular Accident: Yes - date unspecified Hx Dementia: Yes Hx Peripheral Neuropathy: Yes Hx Weakness: Yes patient examined -data reviewed Assessment/Plan status; Diabetic Nephropathy- Cr baseline Anemia UTI Dehydration other conditions: - ASHD - CKD / Diabetic - Hyperkalemia - Diabetes mellitus - Vascular dementia - History of CVA (cerebrovascular accident) Plan: Adjust BP meds- Avoid Nephrotoxics- Monitor renal parameters antibiotics- Urine studies ROMELIA HAMPTON Jan 14, 2017 10:34
[2017-01-14 10:44] LABS: APPEARANCE,URINE CLEAR; KETONES,URINE NEGATIVE (NEGATIVE); LEUKOCYTE ESTERASE ,URINE NEGATIVE (NEGATIVE); NITRITE,URINE NEGATIVE (NEGATIVE); PH,URINE 6.5 (4.5-8.0); PROTEIN,URINE 3+ (NEGATIVE); UROBILINOGEN,URINE NORMAL MG/DL (0.0-1.0)
[2017-01-14] MEDS ORDERED: Lactulose 20gm/30ml UDC ORAL PRN (10:45)
[2017-01-14 10:53] LABS: SQUAMOUS EPITHELIAL CELL,UR OCCASIONAL /LPF (NONE/OCC); WBC,URINE 0 /HPF (0 - 2)
[2017-01-14] MEDS: NovoLOG Insulin Flexpen SUBQ SCH ×3 (11:49→21:00)
[2017-01-14 11:56] LABS: ALANINE AMINOTRANSFERASE 8 U/L (3-33); ALBUMIN/GLOBULIN RATIO 1.2 (1.0-2.7); ANION GAP 17 (5-15); ASPARTATE AMINO TRANSFERASE 18 U/L (5-40); CALCIUM 8.8 mg/dL (8.6-10.2); CARBON DIOXIDE 19 mEQ/L (20-30); CHLORIDE 106 mEQ/L (98-107); CREATININE 1.1 mg/dL (0.5-0.9); HEMOLYSIS 12; MAGNESIUM 1.7 mg/dL (1.7-2.5); PHOSPHORUS 2.7 mg/dL (2.5-4.8); POTASSIUM 5.2 mEQ/L (3.4-4.9); SODIUM 142 mEQ/L (135-145); TOTAL PROTEIN 6.4 g/dL (6.6-8.7); URIC ACID 5.1 mg/dL (3.0-7.5)
--- NOTE | 2017-01-14 12:18 | Consultation ---
Consult Note Consult Note ID Di # [id number] ASSESSMENT: 76 y/o female with: // hx of GAS.pyogenes bacteremia - // hx of recurrent UTI - hx of Renal US: Bilateral nephrolithiasis with minimal hydronephrosis bilaterally. Distal obstructing calculus or calculi not excluded. 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 // No evidence of Sepsis at this point // No leukocytosis or Fever // CKD // DM // CAD s/p CABG - trop neg x1 - TTE: EF preserved, grade I diastolic dysfunction, trace valvular disease // Dementia // NH resident // Negative MRSA, VRE screens // NKDA // Full Code PLAN: - monitor pt off of AB Rx - monitor Cultures - monitor CBC, temperatures - monitor BMP - monitor CXray thank you MINOO PANTOJA M.D. Jan 14, 2017 12:18
[2017-01-14] MEDS ORDERED: Tubing IV Secondary IV ONE ×2 (15:38→15:40)
[2017-01-14] MEDS ORDERED: Sodium Polystyrene Sulfonate 15gm Powder ORAL ONE (16:30)
--- NOTE | 2017-01-14 17:00 | History and Physical ---
History of Present Illness General Date patient seen: Jan 14, 2017 Reason for Hospitalization: Abnormal Labs Present Illness HPI 76-year-old female with PMHx of CVA group home resident, brought in for evaluation of generalize weakness, abnormal labs with dehydration and not eating. History is limited in this patient because of poor historian. Pt was found to have renal failure and admitted for further evaluation. Allergies: Coded Allergies: NO KNOWN DRUG ALLERGIES (Verified Allergy, Unknown, 09/26/15) Medication History Scheduled Amlodipine Besylate (Norvasc), 2.5 MG ORAL DAILY Amlodipine Besylate (Norvasc), 2.5 MG ORAL DAILY, (Reported) Ascorbic Acid* (Vitamin C*), 250 MG ORAL DAILY, (Reported) Ascorbic Acid* (Vitamin C*), 250 MG ORAL DAILY, (Reported) Atorvastatin Calcium* (Atorvastatin Calcium*), 10 MG ORAL BEDTIME, (Reported) Carvedilol (Coreg), 25 MG ORAL EVERY 12 HOURS Ceftriaxone Sod (Ceftriaxone 1 gm-D5w Bag), 1 GM IVPB DAILY Docusate Sodium* (Docusate Sodium*), 100 MG ORAL TWICE A DAY, (Reported) Ferrous Sulfate* (Ferrous Sulfate*), 325 MG ORAL DAILY, (Reported) Insulin Detemir (Levemir Flexpen), 15 UNITS SUBQ Q24H Insulin Detemir (Levemir), 0 SUBQ BEDTIME, (Reported) Insulin Glargine (Lantus), 20 SUBQ BEDTIME, (Reported) Insulin Regular, Human* (Novolin R*), 0 SUBQ .SLIDING SCALE, (Reported) Multivitamin With Minerals (Multivitamins With Minerals*), 1 TAB ORAL DAILY, ( Reported) Ranitidine Hcl* (Zantac*), 150 MG ORAL TWICE A DAY Risperidone* (Risperdal*), 1 MG ORAL BEDTIME Vitamin D (Vitamin D3), 400 UNITS ORAL DAILY, (Reported) Warfarin Sod* (Coumadin*), 1.5 MG ORAL DAILY, (Reported) Warfarin Sod* (Coumadin*), 2.5 MG ORAL DAILY Warfarin Sod* (Coumadin*), 2.5 MG ORAL DAILY, (Reported) Scheduled PRN Acetaminophen (Acetaminophen 8 Hour), 650 MG ORAL Q6H PRN for Pain Scale (3-5), (Reported) Hydralazine HCl (Hydralazine HCl), 10 MG ORAL Q6H PRN for SBP above 160 Hydrocodone Bit/Acetaminophen 5-325* ([place] 5-325*), 1 TAB ORAL Q4H PRN for For Pain Hydrocodone Bit/Acetaminophen 5-325* ([place] 5-325*), 1 TAB ORAL Q4H PRN for For Pain, (Reported) Morphine Sulfate* (Morphine Sulfate*), 2 MG SUBQ EVERY 6 HOURS PRN Nitroglycerin (Nitroglycerin), 0.4 MG SL every 5mins PRN for For Pain, (Reported ) Polyethylene Glycol 3350* (Miralax*), 17 GM ORAL HSPRN PRN for Constipation [Warfarin RX monitoring], 1 EA MISC DAILY PRN for Per rx protocol Miscellaneous Medications Insulin Aspart (Novolog Flexpen), (Reported) Lactulose (Lactulose*), 30 ML ORAL, (Reported) Lactulose (Lactulose*), 30 ML ORAL, (Reported) Nitroglycerin (Nitroglycerin), 0.4 MG SL, (Reported) Patient History Healthcare decision maker Resuscitation status Full Code Advanced Directive on File N/A Past Medical/Surgical History Past Medical/Surgical History: (1) Acute encephalopathy (2) HTN (hypertension) (3) Diabetes mellitus (4) Vascular dementia Physical Exam General Appearance: WD/WN, no apparent distress Lines, tubes and drains: peripheral HEENT: normocephalic, atraumatic Neck: non-tender, normal alignment Respiratory/Chest: chest wall non-tender, lungs clear Breasts: no masses Cardiovascular/Chest: normal peripheral pulses Abdomen: normal bowel sounds, soft Genitourinary/Rectal: normal rectal exam Last 24 Hour Vital Signs Date Time Temp Pulse Resp B/P Pulse Ox O2 Delivery O2 Flow Rate FiO2 01/14/17 16:52 97.9 74 20 144/79 96 Room Air 01/14/17 12:08 97.9 73 20 157/75 98 Room Air 01/14/17 09:04 77 158/68 01/14/17 09:03 77 158/68 01/14/17 07:49 97.5 77 20 158/68 Room Air 01/14/17 04:00 95.7 75 20 152/81 98 Room Air 01/14/17 03:34 98.6 72 16 161/74 100 Room Air 01/14/17 02:58 98.6 72 16 161/74 100 Room Air 01/14/17 00:40 98.6 71 16 161/54 100 Room Air 01/14/17 00:19 97.5 68 16 129/54 100 Room Air Intake and Output 01/13/17 01/14/17 19:00 07:00 Intake Total 2055 ml Balance 2055 ml Intake Oral 0 ml IV Total 2055 ml # Voids 1 Laboratory Tests Test 01/14/17 00:41 01/14/17 01:32 01/14/17 09:55 01/14/17 10:00 White Blood Count 5.1 K/UL (4.8-10.8) Red Blood Count 3.82 M/UL (4.20-5.40) L Hemoglobin 11.8 G/DL (12.0-16.0) L Hematocrit 36.3 % (37.0-47.0) L Mean Corpuscular Volume 95 FL (80-99) Mean Corpuscular Hemoglobin 30.8 PG (27.0-31.0) Mean Corpuscular Hemoglobin Concent 32.4 G/DL (32.0-36.0) Red Cell Distribution Width 12.4 % (11.6-14.8) Platelet Count 229 K/UL (150-450) Mean Platelet Volume 6.8 FL (6.5-10.1) Neutrophils (%) (Auto) 48.0 % (45.0-75.0) Lymphocytes (%) (Auto) 35.6 % (20.0-45.0) Monocytes (%) (Auto) 9.0 % (1.0-10.0) Eosinophils (%) (Auto) 6.6 % (0.0-3.0) H Basophils (%) (Auto) 0.8 % (0.0-2.0) Sodium Level 143 mEQ/L (135-145) Potassium Level 5.1 mEQ/L (3.4-4.9) H Chloride Level 107 mEQ/L (98-107) Carbon Dioxide Level 23 mEQ/L (20-30) Anion Gap 13 (5-15) Blood Urea Nitrogen 31 mg/dL (7-23) H Creatinine 1.4 mg/dL (0.5-0.9) H Estimat Glomerular Filtration Rate mL/min (>60) Glucose Level 161 mg/dL (74-106) H Calcium Level 9.1 mg/dL (8.6-10.2) Total Bilirubin < 0.2 mg/dL (0.0-1.2) Aspartate Amino Transf (AST/SGOT) 18 U/L (5-40) Alanine Aminotransferase (ALT/SGPT) 10 U/L (3-33) Alkaline Phosphatase 84 U/L (35-104) Total Protein 6.7 g/dL (6.6-8.7) Albumin 3.7 g/dL (3.5-5.2) Globulin 3.0 g/dL Albumin/Globulin Ratio 1.2 (1.0-2.7) Urine Color Pale yellow Pale yellow Urine Appearance Clear Clear Urine pH 5 (4.5-8.0) 6.5 (4.5-8.0) Urine Specific [place] 1.010 (1.005-1.035) 1.010 (1.005-1.035) Urine Protein 2+ (NEGATIVE) H 3+ (NEGATIVE) H Urine Glucose (UA) 1+ (NEGATIVE) H Negative (NEGATIVE) Urine Ketones Negative (NEGATIVE) Negative (NEGATIVE) Urine Occult Blood 1+ (NEGATIVE) H 1+ (NEGATIVE) H Urine Nitrite Negative (NEGATIVE) Negative (NEGATIVE) Urine Bilirubin Negative (NEGATIVE) Negative (NEGATIVE) Urine Urobilinogen Normal MG/DL (0.0-1.0) Normal MG/DL (0.0-1.0) Urine Leukocyte Esterase 3+ (NEGATIVE) H Negative (NEGATIVE) Urine RBC 0-2 /HPF (0 - 2) 2-4 /HPF (0 - 2) H Urine WBC Tntc /HPF (0 - 2) H 0 /HPF (0 - 2) Urine Squamous Epithelial Cells Few /LPF (NONE/OCC) Occasional /LPF Urine Bacteria Few /HPF (NONE) None /HPF (NONE) Urine Eosinophils None seen Urine Osmolality Pending Urine Random Sodium 114 mmol/L Urine Random Chloride 105 mmol/L Urine Potassium Timed 23 mmol/L Plasma/Serum Osmolality Pending Test 01/14/17 10:50 Sodium Level 142 mEQ/L (135-145) Potassium Level 5.2 mEQ/L (3.4-4.9) H Chloride Level 106 mEQ/L (98-107) Carbon Dioxide Level 19 mEQ/L (20-30) L Anion Gap 17 (5-15) H Blood Urea Nitrogen 23 mg/dL (7-23) Creatinine 1.1 mg/dL (0.5-0.9) H Estimat Glomerular Filtration Rate mL/min (>60) Glucose Level 146 mg/dL (74-106) H Uric Acid 5.1 mg/dL (3.0-7.5) Calcium Level 8.8 mg/dL (8.6-10.2) Phosphorus Level 2.7 mg/dL (2.5-4.8) Magnesium Level 1.7 mg/dL (1.7-2.5) Total Bilirubin < 0.2 mg/dL (0.0-1.2) Aspartate Amino Transf (AST/SGOT) 18 U/L (5-40) Alanine Aminotransferase (ALT/SGPT) 8 U/L (3-33) Alkaline Phosphatase 88 U/L (35-104) Total Creatine Kinase 98 U/L (26-140) Total Protein 6.4 g/dL (6.6-8.7) L Albumin 3.5 g/dL (3.5-5.2) Globulin 2.9 g/dL Albumin/Globulin Ratio 1.2 (1.0-2.7) Free Thyroxine 1.41 ng/dL (0.86-1.85) Height (Feet): 5 Height (Inches): 1.00 Weight (Pounds): 146 Medications Current Medications Medications (Trade) Dose Ordered Sig/Asha Route PRN Reason Start Time Stop Time Status Last Admin Dose Admin Acetaminophen (Tylenol) 650 mg Q4H PRN ORAL fever 01/14/17 07:00 02/13/17 06:59 Acetaminophen/ Hydrocodone Bitart ([place] 5/325) 1 tab Q4H PRN ORAL For Pain 01/14/17 07:00 01/21/17 06:59 Albuterol/ Ipratropium (DuoNeb 0.5-3(2.5)mg/3ml) 3 ml EVERY 4 HOURS PRN HHN Shortness of Breath 01/14/17 07:00 01/19/17 06:59 Amlodipine Besylate (Norvasc) 2.5 mg BID ORAL 01/14/17 18:00 02/13/17 17:59 Atorvastatin Calcium (Lipitor) 10 mg BEDTIME ORAL 01/14/17 21:00 02/13/17 20:59 Carvedilol (Coreg) 25 mg EVERY 12 HOURS ORAL 01/14/17 09:00 02/13/17 08:59 01/14/17 09:03 Dextrose (Dextrose 50%) STAT PRN IV Hypoglycemia 01/14/17 07:00 02/13/17 06:59 Heparin Sodium (Porcine) (Heparin 5000 units/ml) 5,000 units EVERY 12 HOURS SUBQ 01/14/17 09:00 02/13/17 08:59 01/14/17 09:07 Hydralazine HCl (Apresoline) 25 mg Q6H PRN ORAL SBP above 160 01/14/17 13:00 02/13/17 12:59 Insulin Aspart (NovoLOG) BEFORE MEALS AND HS SUBQ 01/14/17 11:30 02/13/17 11:29 01/14/17 16:40 Lactulose (Cephulac) 20 gm BID PRN ORAL constipation 01/14/17 10:45 02/13/17 10:44 Morphine Sulfate (Morphine Sulfate) 2 mg EVERY 4 HOURS PRN IVP Moderate Pain (Pain Scale 4-6) 01/14/17 07:00 01/21/17 06:59 Nitroglycerin (Ntg) 0.4 mg Q5M PRN SL Prn Chest Pain 01/14/17 07:00 02/13/17 06:59 Ondansetron HCl (Zofran) 4 mg Q6H PRN IVP Nausea & Vomiting 01/14/17 07:00 02/13/17 06:59 Polyethylene Glycol (Miralax) 17 gm DAILYPRN PRN ORAL Constipation 01/14/17 07:00 02/13/17 06:59 Risperidone (RisperDAL) 1 mg BEDTIME ORAL 01/14/17 21:00 02/13/17 20:59 Temazepam (Restoril) 15 mg HSPRN PRN ORAL Insomnia 01/14/17 07:00 01/21/17 06:59 Assessment/Plan Problem List: (1) ATN (acute tubular necrosis) ICD Codes: N17.0 - Acute kidney failure with tubular necrosis SNOMED: 57305766 (2) Diabetes mellitus ICD Codes: E11.9 - Type 2 diabetes mellitus without complications SNOMED: 37857814 (3) Vascular dementia ICD Codes: F01.50 - Vascular dementia without behavioral disturbance SNOMED: 908829105 (4) UTI (urinary tract infection) ICD Codes: N39.0 - Urinary tract infection, site not specified SNOMED: 64655333 Qualifiers: Qualified Codes: N30.00 - Acute cystitis without hematuria Assessment/Plan IV flulids check cultures renal evaluation dvt prophylaxis check electroltyes pt/ot JUAN LUIS ASHLEY Jan 14, 2017 17:00
--- NOTE | 2017-01-14 21:17 | Consultation ---
DATE OF CONSULTATION: INFECTIOUS DISEASE CONSULTATION CONSULTING PHYSICIAN: Nathan Whaley M.D. REFERRING PHYSICIAN: Anthony Solomon M.D. REASON FOR CONSULTATION: Evaluation of the patient for possible urinary tract infection, antibiotic management. HISTORY OF PRESENT ILLNESS: The patient is a 76-year-old female with multiple medical problems, who was transferred to this medical center due to altered level of consciousness, and dehydration. The patient's laboratories showed normal white blood cells. On admission, the patient's UA shows pyuria and too numerous to count white blood cells. Infectious Disease consultation requested for further evaluation of the patient's antibiotic management. PAST MEDICAL HISTORY: 1. CVA and peripheral neuropathy with dementia. 2. Dementia. 3. History of CAD. 4. Peripheral vascular disease. 5. History of CABG. 6. Hyperlipidemia. 7. Chronic kidney disease, on dialysis. 8. Osteoarthritis. 9. Diabetes. 10. Anemia. MEDICATIONS: Vancomycin and cefepime. ALLERGIES: No known drug allergies. SOCIAL HISTORY: The patient is single. FAMILY HISTORY: Not available. REVIEW OF SYSTEMS: Limited to obtain because the patient is very altered as mentioned above. The patient denies any cough, runny nose, sore throat, abdominal pain, or dysuria. LABORATORY AND DIAGNOSTIC DATA: White blood cells 5, hemoglobin 11, and platelet 229,000. UA, too numerous to count white blood cells, however, repeat UA shows 0 white blood cells. BUN 23 and creatinine 1.3. ASSESSMENT: The patient is a 76-year-old female with multiple medical problem, has been admitted to this medical center for altered level of consciousness with dehydration. Based on the exam patient is afebrile. leukocytosis. UA initially showed pyuria, however, the repeat has been normal. There is no evidence of sepsis at this point, as the patient's mental status also has improved. PLAN: 1. We will monitor the patient off of antibiotics. 2. Monitor multiple cultures. 3. Monitor chest x-ray. Based on the patient's current labs, we will do further recommendation. Thank you, Dr. Solomon, for allowing me to participate in the care of this patient. I will follow the patient with you during this hospitalization. Nathan Whaley M.D. DR: Hanh JOB#: [id number] CC:
[2017-01-14] MEDS ORDERED: cefTRIAXone 1 GM in D5W 55 ML IVPB SCH (22:15)
[2017-01-15] VITALS: BP 159/73
[2017-01-15 04:00] VITALS: BP 148/76
[2017-01-15] MEDS: NovoLOG Insulin Flexpen SUBQ SCH ×4 (05:45→21:30)
[2017-01-15 08:00] VITALS: BP 141/72
[2017-01-15] MEDS: Carvedilol 25mg Tab ORAL SCH ×2 (08:48→21:29)
[2017-01-15] MEDS: Heparin 5000 units/ml inj SUBQ SCH ×2 (08:49→21:30)
--- NOTE | 2017-01-15 09:25 | Pulmonology Progress Note ---
Assessment/Plan Assessment/Plan ASSESSMENT MURTAZA/possible ATN on CRI pyuria possible UTI Vascular dementia hx of CVA with RSW HTN DM PLAN OF CARE MS floor IVF ID follows keep off abx and observe as per ID urine cx preliminary negative, afebrile, no leukocytosis monitor renal parameters, lytes renal US Bilateral nonobstructive renal calculi.No hydro, Generalized cortical atrophy BP management with CCB and BB, optimize as needed continue statin, add ASA DVT prophylaxis PT/OT bowel regimen case discussed and evaluated by supervising physician Subjective Allergies: Coded Allergies: NO KNOWN DRUG ALLERGIES (Verified Allergy, Unknown, 09/26/15) Subjective patient sitting in the chair denies chest pain , palpitations on RA sat stable creat up to 1.3 again this am Objective Last 24 Hour Vital Signs Date Time Temp Pulse Resp B/P Pulse Ox O2 Delivery O2 Flow Rate FiO2 01/15/17 08:48 77 141/72 01/15/17 08:47 77 141/72 01/15/17 08:00 97.7 77 18 141/72 97 Room Air 01/15/17 04:00 98.8 78 18 148/76 94 Room Air 01/15/17 00:00 98.2 74 14 159/73 98 Nasal Cannula 01/14/17 21:26 81 158/78 01/14/17 20:00 100.0 81 22 158/78 99 Room Air 01/14/17 19:32 81 18 Room Air 21 01/14/17 17:47 74 144/79 01/14/17 16:56 97.9 74 20 144/79 96 Room Air 01/14/17 16:52 97.9 74 20 144/79 96 Room Air 01/14/17 12:08 97.9 73 20 157/75 98 Room Air Intake and Output 01/14/17 01/15/17 19:00 07:00 Intake Total 1530 ml 240 ml Output Total 2625 ml 1000 ml Balance -1095 ml -760 ml Intake Oral 1200 ml 240 ml IV Total 330 ml Output Urine Total 2625 ml 1000 ml General Appearance: no acute distress HEENT: normocephalic, atraumatic, anicteric, mucous membranes moist Respiratory/Chest: lungs clear, no respiratory distress, no accessory muscle use Cardiovascular: normal rate, regular rhythm, no JVD Abdomen: normal bowel sounds, soft, non tender, non distended Genitourinary: normal external genitalia Neurologic/Psychiatric: abnormal gait, alert, responsive - confused Musculoskeletal: atrophy - BLE Laboratory Tests 01/14/17 09:55: Urine Color Pale yellow, Urine Appearance Clear, Urine pH 6.5, Urine Specific [place] 1.010, Urine Protein 3+H, Urine Glucose (UA) Negative, Urine Ketones Negative, Urine Occult Blood 1+H, Urine Nitrite Negative, Urine Bilirubin Negative, Urine Urobilinogen Normal, Urine Leukocyte Esterase Negative, Urine RBC 2-4H, Urine WBC 0, Urine Squamous Epithelial Cells Occasional, Urine Bacteria None, Urine Eosinophils None seen, Urine Osmolality [Pending], Urine Random Sodium 114, Urine Random Chloride 105, Urine Potassium Timed 23 01/14/17 10:00: Plasma/Serum Osmolality [Pending] 01/14/17 10:50: Sodium Level 142, Potassium Level 5.2H, Chloride Level 106, Carbon Dioxide Level 19L, Anion Gap 17H, Blood Urea Nitrogen 23, Creatinine 1.1H, Estimat Glomerular Filtration Rate , Glucose Level 146H, Uric Acid 5.1, Calcium Level 8.8, Phosphorus Level 2.7, Magnesium Level 1.7, Total Bilirubin < 0.2, Aspartate Amino Transf (AST/SGOT) 18, Alanine Aminotransferase (ALT/SGPT) 8, Alkaline Phosphatase 88, Total Creatine Kinase 98, Total Protein 6.4L, Albumin 3.5, Globulin 2.9, Albumin/Globulin Ratio 1.2, Free Thyroxine 1.41 Current Medications Medications (Trade) Dose Ordered Sig/Asha Route PRN Reason Start Time Stop Time Status Last Admin Dose Admin Acetaminophen (Tylenol) 650 mg Q4H PRN ORAL fever 01/14/17 07:00 02/13/17 06:59 Acetaminophen/ Hydrocodone Bitart ([place] 5/325) 1 tab Q4H PRN ORAL For Pain 01/14/17 07:00 01/21/17 06:59 Albuterol/ Ipratropium (DuoNeb 0.5-3(2.5)mg/3ml) 3 ml EVERY 4 HOURS PRN HHN Shortness of Breath 01/14/17 07:00 01/19/17 06:59 Amlodipine Besylate (Norvasc) 2.5 mg BID ORAL 01/14/17 18:00 02/13/17 17:59 01/15/17 08:47 Atorvastatin Calcium (Lipitor) 10 mg BEDTIME ORAL 01/14/17 21:00 02/13/17 20:59 01/14/17 21:25 Carvedilol (Coreg) 25 mg EVERY 12 HOURS ORAL 01/14/17 09:00 02/13/17 08:59 01/15/17 08:48 Dextrose (Dextrose 50%) STAT PRN IV Hypoglycemia 01/14/17 07:00 02/13/17 06:59 Heparin Sodium (Porcine) (Heparin 5000 units/ml) 5,000 units EVERY 12 HOURS SUBQ 01/14/17 09:00 02/13/17 08:59 01/15/17 08:49 Hydralazine HCl (Apresoline) 25 mg Q6H PRN ORAL SBP above 160 01/14/17 13:00 02/13/17 12:59 Insulin Aspart (NovoLOG) BEFORE MEALS AND HS SUBQ 01/14/17 11:30 02/13/17 11:29 01/15/17 05:45 Lactulose (Cephulac) 20 gm BID PRN ORAL constipation 01/14/17 10:45 02/13/17 10:44 Morphine Sulfate (Morphine Sulfate) 2 mg EVERY 4 HOURS PRN IVP Moderate Pain (Pain Scale 4-6) 01/14/17 07:00 01/21/17 06:59 Nitroglycerin (Ntg) 0.4 mg Q5M PRN SL Prn Chest Pain 01/14/17 07:00 02/13/17 06:59 Ondansetron HCl (Zofran) 4 mg Q6H PRN IVP Nausea & Vomiting 01/14/17 07:00 02/13/17 06:59 Polyethylene Glycol (Miralax) 17 gm DAILYPRN PRN ORAL Constipation 01/14/17 07:00 02/13/17 06:59 Risperidone (RisperDAL) 1 mg BEDTIME ORAL 01/14/17 21:00 02/13/17 20:59 01/14/17 21:25 Temazepam (Restoril) 15 mg HSPRN PRN ORAL Insomnia 01/14/17 07:00 01/21/17 06:59 Tonie Doherty NP ([facility]) Jan 15, 2017 09:25
--- NOTE | 2017-01-15 09:58 | Diagnostic Imaging Report ---
Indication:Elevated Bun and Creatinine. Technique: Grayscale and duplex Doppler imaging of the kidneys performed. Comparison: None Findings: There are calcific foci within both kidneys consistent with nonobstructive stones. There is no hydronephrosis demonstrated. The bladder wall may be slightly thick but the bladder is not well-distended on this exam. Garcia balloon noted in good position. A there is generalized cortical atrophy noted. The echogenicity of the renal cortex is probably normal. Right kidney measures 10 CM. Left kidney is about 9 CM. Impression: Bilateral nonobstructive renal calculi. Possible cystitis given thickening of the bladder wall. Garcia catheter in good position
[2017-01-15] MEDS ORDERED: Vancomycin 500mg/D5W 110ml IVPB SCH ×2 (10:00)
[2017-01-15] MEDS: Aspirin EC 81mg tab ORAL SCH (10:00)
[2017-01-15 10:57] LABS: BASOPHILS % (AUTO) 0.5 % (0.0-2.0); EOSINOPHILS % (AUTO) 3.5 % (0.0-3.0); MEAN CORPUSCULAR HEMOGLOBIN 30.3 PG (27.0-31.0); MEAN CORPUSCULAR HGB CONC 31.6 G/DL (32.0-36.0); MEAN CORPUSCULAR VOLUME 96 FL (80-99); MEAN PLATELET VOLUME 6.8 FL (6.5-10.1); MONOCYTES % (AUTO) 6.9 % (1.0-10.0); NEUTROPHILS % (AUTO) 66.1 % (45.0-75.0); PLATELET COUNT 233 K/UL (150-450); RED BLOOD COUNT 4.04 M/UL (4.20-5.40); RED CELL DISTRIBUTION WIDTH 12.5 % (11.6-14.8)
[2017-01-15 11:20] LABS: HEMOGLOBIN A1C 7.5 % (< 6.0)
[2017-01-15 11:21] LABS: CRP QUANT < 0.3 mg/dL (< 0.5); MAGNESIUM 1.7 mg/dL (1.7-2.5); PHOSPHORUS 2.8 mg/dL (2.5-4.8); URIC ACID 5.5 mg/dL (3.0-7.5)
[2017-01-15 11:32] LABS: CARBON DIOXIDE 18 mEQ/L (20-30); HEMOLYSIS 26; TOTAL PROTEIN 7.3 g/dL (6.6-8.7)
[2017-01-15 11:34] LABS: ALANINE AMINOTRANSFERASE 9 U/L (3-33); ALBUMIN/GLOBULIN RATIO 1.3 (1.0-2.7); ANION GAP 23 (5-15); ASPARTATE AMINO TRANSFERASE 28 U/L (5-40); CALCIUM 9.2 mg/dL (8.6-10.2); CHLORIDE 103 mEQ/L (98-107); CREATININE 1.3 mg/dL (0.5-0.9); POTASSIUM 4.6 mEQ/L (3.4-4.9); SODIUM 144 mEQ/L (135-145)
[2017-01-15 12:00] VITALS: BP 163/91
--- NOTE | 2017-01-15 13:16 | Infectious Diseases Prog Note ---
Assessment/Plan Assessment/Plan ASSESSMENT: 76 y/o female with: // hx of GAS.pyogenes bacteremia - // hx of recurrent UTI - hx of Renal US: Bilateral nephrolithiasis with minimal hydronephrosis bilaterally. Distal obstructing calculus or calculi not excluded. 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 // No evidence of Sepsis at this point // No leukocytosis or Fever // CKD US: Bilateral nonobstructive renal calculi. // DM // CAD s/p CABG - trop neg x1 - TTE: EF preserved, grade I diastolic dysfunction, trace valvular disease // Dementia // NH resident // Negative MRSA, VRE screens // NKDA // Full Code PLAN: - monitor pt off of AB Rx - monitor Cultures - monitor CBC, temperatures - monitor BMP - monitor CXray Subjective Constitutional: Denies: anorexia, chills, drenching sweats, fatigue, fever, no symptoms, other Allergies: Coded Allergies: NO KNOWN DRUG ALLERGIES (Verified Allergy, Unknown, 09/26/15) Objective Vital Signs Last 24 Hour Vital Signs Date Time Temp Pulse Resp B/P Pulse Ox O2 Delivery O2 Flow Rate FiO2 01/15/17 12:00 97.7 82 18 163/91 98 Room Air 01/15/17 08:48 77 141/72 01/15/17 08:47 77 141/72 01/15/17 08:00 97.7 77 18 141/72 97 Room Air 01/15/17 07:05 70 18 Room Air 01/15/17 04:00 98.8 78 18 148/76 94 Room Air 01/15/17 00:00 98.2 74 14 159/73 98 Nasal Cannula 01/14/17 21:26 81 158/78 01/14/17 20:00 100.0 81 22 158/78 99 Room Air 01/14/17 19:32 81 18 Room Air 21 01/14/17 17:47 74 144/79 01/14/17 16:56 97.9 74 20 144/79 96 Room Air 01/14/17 16:52 97.9 74 20 144/79 96 Room Air Height (Feet): 5 Height (Inches): 1.00 Weight (Pounds): 146 HEENT: anicteric Respiratory/Chest: no respiratory distress Cardiovascular: no gallop/murmur Abdomen: no organomegaly Microbiology Date/Time Source Procedure Growth Status 01/14/17 01:32 Urine,Clean Catch Urine Culture - Preliminary NO GROWTH AFTER 24 HOURS Resulted Laboratory Tests Test 01/15/17 10:40 White Blood Count 5.0 K/UL (4.8-10.8) Red Blood Count 4.04 M/UL (4.20-5.40) L Hemoglobin 12.3 G/DL (12.0-16.0) Hematocrit 38.8 % (37.0-47.0) Mean Corpuscular Volume 96 FL (80-99) Mean Corpuscular Hemoglobin 30.3 PG (27.0-31.0) Mean Corpuscular Hemoglobin Concent 31.6 G/DL (32.0-36.0) L Red Cell Distribution Width 12.5 % (11.6-14.8) Platelet Count 233 K/UL (150-450) Mean Platelet Volume 6.8 FL (6.5-10.1) Neutrophils (%) (Auto) 66.1 % (45.0-75.0) Lymphocytes (%) (Auto) 23.0 % (20.0-45.0) Monocytes (%) (Auto) 6.9 % (1.0-10.0) Eosinophils (%) (Auto) 3.5 % (0.0-3.0) H Basophils (%) (Auto) 0.5 % (0.0-2.0) Sodium Level 144 mEQ/L (135-145) Potassium Level 4.6 mEQ/L (3.4-4.9) Chloride Level 103 mEQ/L (98-107) Carbon Dioxide Level 18 mEQ/L (20-30) L Anion Gap 23 (5-15) H Blood Urea Nitrogen 20 mg/dL (7-23) Creatinine 1.3 mg/dL (0.5-0.9) H Estimat Glomerular Filtration Rate mL/min (>60) Glucose Level 161 mg/dL (74-106) H Hemoglobin A1c 7.5 % (< 6.0) H Uric Acid 5.5 mg/dL (3.0-7.5) Calcium Level 9.2 mg/dL (8.6-10.2) Phosphorus Level 2.8 mg/dL (2.5-4.8) Magnesium Level 1.7 mg/dL (1.7-2.5) Total Bilirubin 0.4 mg/dL (0.0-1.2) Gamma Glutamyl Transpeptidase 15 U/L (5-36) Aspartate Amino Transf (AST/SGOT) 28 U/L (5-40) Alanine Aminotransferase (ALT/SGPT) 9 U/L (3-33) Alkaline Phosphatase 102 U/L (35-104) C-Reactive Protein, Quantitative < 0.3 mg/dL (< 0.5) Pro-B-Type Natriuretic Peptide 4722 pg/mL (0-450) H Total Protein 7.3 g/dL (6.6-8.7) Albumin 4.2 g/dL (3.5-5.2) Globulin 3.1 g/dL Albumin/Globulin Ratio 1.3 (1.0-2.7) Current Medications Medications (Trade) Dose Ordered Sig/Asha Route PRN Reason Start Time Stop Time Status Last Admin Dose Admin Acetaminophen (Tylenol) 650 mg Q4H PRN ORAL fever 01/14/17 07:00 02/13/17 06:59 Acetaminophen/ Hydrocodone Bitart ([place] 5/325) 1 tab Q4H PRN ORAL For Pain 01/14/17 07:00 01/21/17 06:59 Albuterol/ Ipratropium (DuoNeb 0.5-3(2.5)mg/3ml) 3 ml EVERY 4 HOURS PRN HHN Shortness of Breath 01/14/17 07:00 01/19/17 06:59 Amlodipine Besylate (Norvasc) 2.5 mg BID ORAL 01/14/17 18:00 02/13/17 17:59 01/15/17 08:47 Aspirin (Ecotrin) 81 mg DAILY ORAL 01/15/17 10:00 02/14/17 09:59 01/15/17 10:00 Atorvastatin Calcium (Lipitor) 10 mg BEDTIME ORAL 01/14/17 21:00 02/13/17 20:59 01/14/17 21:25 Carvedilol (Coreg) 25 mg EVERY 12 HOURS ORAL 01/14/17 09:00 02/13/17 08:59 01/15/17 08:48 Dextrose (Dextrose 50%) STAT PRN IV Hypoglycemia 01/14/17 07:00 02/13/17 06:59 Heparin Sodium (Porcine) (Heparin 5000 units/ml) 5,000 units EVERY 12 HOURS SUBQ 01/14/17 09:00 02/13/17 08:59 01/15/17 08:49 Hydralazine HCl (Apresoline) 25 mg Q6H PRN ORAL SBP above 160 01/14/17 13:00 02/13/17 12:59 Insulin Aspart (NovoLOG) BEFORE MEALS AND HS SUBQ 01/14/17 11:30 02/13/17 11:29 01/15/17 11:30 Lactulose (Cephulac) 20 gm BID PRN ORAL constipation 01/14/17 10:45 02/13/17 10:44 Morphine Sulfate (Morphine Sulfate) 2 mg EVERY 4 HOURS PRN IVP Moderate Pain (Pain Scale 4-6) 01/14/17 07:00 01/21/17 06:59 Nitroglycerin (Ntg) 0.4 mg Q5M PRN SL Prn Chest Pain 01/14/17 07:00 02/13/17 06:59 Ondansetron HCl (Zofran) 4 mg Q6H PRN IVP Nausea & Vomiting 01/14/17 07:00 02/13/17 06:59 Polyethylene Glycol (Miralax) 17 gm DAILYPRN PRN ORAL Constipation 01/14/17 07:00 02/13/17 06:59 Risperidone (RisperDAL) 1 mg BEDTIME ORAL 01/14/17 21:00 02/13/17 20:59 01/14/17 21:25 Temazepam (Restoril) 15 mg HSPRN PRN ORAL Insomnia 01/14/17 07:00 01/21/17 06:59 MINOO PANTOJA M.D. Jan 15, 2017 13:16
--- NOTE | 2017-01-15 14:59 | General Progress Note ---
Assessment/Plan Status: stable Status Narrative Cr up 1.3 Assessment/Plan Status; Diabetic Nephropathy- Cr baseline Anemia UTI Dehydration HTN other conditions: - ASHD - CKD / Diabetic - Hyperkalemia- resolved - Diabetes mellitus - Vascular dementia - History of CVA (cerebrovascular accident) Plan: Adjust BP meds- increase Norvasc Avoid Nephrotoxics- Monitor renal parameters antibiotics- Urine studies Subjective ROS Limited/Unobtainable: No Constitutional: Reports: malaise, weakness Allergies: Coded Allergies: NO KNOWN DRUG ALLERGIES (Verified Allergy, Unknown, 09/26/15) Objective Last 24 Hour Vital Signs Date Time Temp Pulse Resp B/P Pulse Ox O2 Delivery O2 Flow Rate FiO2 01/15/17 12:00 97.7 82 18 163/91 98 Room Air 01/15/17 08:48 77 141/72 01/15/17 08:47 77 141/72 01/15/17 08:00 97.7 77 18 141/72 97 Room Air 01/15/17 07:05 70 18 Room Air 01/15/17 04:00 98.8 78 18 148/76 94 Room Air 01/15/17 00:00 98.2 74 14 159/73 98 Nasal Cannula 01/14/17 21:26 81 158/78 01/14/17 20:00 100.0 81 22 158/78 99 Room Air 01/14/17 19:32 81 18 Room Air 21 01/14/17 17:47 74 144/79 01/14/17 16:56 97.9 74 20 144/79 96 Room Air 01/14/17 16:52 97.9 74 20 144/79 96 Room Air Intake and Output 01/14/17 01/15/17 19:00 07:00 Intake Total 1530 ml 240 ml Output Total 2625 ml 1000 ml Balance -1095 ml -760 ml Intake Oral 1200 ml 240 ml IV Total 330 ml Output Urine Total 2625 ml 1000 ml Laboratory Tests 01/15/17 10:40: White Blood Count 5.0, Red Blood Count 4.04L, Hemoglobin 12.3, Hematocrit 38.8, Mean Corpuscular Volume 96, Mean Corpuscular Hemoglobin 30.3, Mean Corpuscular Hemoglobin Concent 31.6L, Red Cell Distribution Width 12.5, Platelet Count 233, Mean Platelet Volume 6.8, Neutrophils (%) (Auto) 66.1, Lymphocytes (%) (Auto) 23.0, Monocytes (%) (Auto) 6.9, Eosinophils (%) (Auto) 3.5H, Basophils (%) (Auto ) 0.5, Sodium Level 144, Potassium Level 4.6, Chloride Level 103, Carbon Dioxide Level 18L, Anion Gap 23H, Blood Urea Nitrogen 20, Creatinine 1.3H, Estimat Glomerular Filtration Rate , Glucose Level 161H, Hemoglobin A1c 7.5H, Uric Acid 5.5, Calcium Level 9.2, Phosphorus Level 2.8, Magnesium Level 1.7, Total Bilirubin 0.4, Gamma Glutamyl Transpeptidase 15, Aspartate Amino Transf ( AST/SGOT) 28, Alanine Aminotransferase (ALT/SGPT) 9, Alkaline Phosphatase 102, C -Reactive Protein, Quantitative < 0.3, Pro-B-Type Natriuretic Peptide 4722H, Total Protein 7.3, Albumin 4.2, Globulin 3.1, Albumin/Globulin Ratio 1.3 Height (Feet): 5 Height (Inches): 1.00 Weight (Pounds): 146 General Appearance: no apparent distress Objective other PE not changed ROMELIA HAMPTON Jan 15, 2017 14:59
[2017-01-15 16:00] VITALS: BP 138/78
[2017-01-15] MEDS: HydrALAZINE 25mg tab ORAL PRN (16:32)
[2017-01-15 20:00] VITALS: BP 153/57
[2017-01-16] VITALS: BP 97/50
[2017-01-16 04:00] VITALS: BP 98/62
[2017-01-16] MEDS: NovoLOG Insulin Flexpen SUBQ SCH ×4 (05:46→21:17)
[2017-01-16 08:00] VITALS: BP 102/68
[2017-01-16] MEDS: Aspirin EC 81mg tab ORAL SCH (08:50)
[2017-01-16] MEDS: Heparin 5000 units/ml inj SUBQ SCH ×2 (08:51→21:12)
[2017-01-16] MEDS: Carvedilol 25mg Tab ORAL SCH ×4 (08:51→23:08)
--- NOTE | 2017-01-16 09:40 | Pulmonology Progress Note ---
Assessment/Plan Assessment/Plan ASSESSMENT MURTAZA/possible ATN on CRI pyuria possible UTI Vascular dementia hx of CVA with RSW ASHD HTN DM PLAN OF CARE MS floor IVF ID follows keep off abx and observe as per ID urine cx preliminary negative, afebrile, no leukocytosis monitor renal parameters, lytes renal US Bilateral nonobstructive renal calculi.No hydro, Generalized cortical atrophy last creat-1.3 no labs today BP management with CCB and BB, optimize as needed , BP on the low side after Norvasc dose increased - per nephro management continue statin and ASA DVT prophylaxis PT/OT bowel regimen case discussed and evaluated by supervising physician Subjective Allergies: Coded Allergies: NO KNOWN DRUG ALLERGIES (Verified Allergy, Unknown, 09/26/15) Subjective patient in the bed , eating breakfast denies chest pain , palpitations on RA sat stable creat up to 1.3 BP on the low side low Objective Last 24 Hour Vital Signs Date Time Temp Pulse Resp B/P Pulse Ox O2 Delivery O2 Flow Rate FiO2 01/16/17 08:51 74 102/68 01/16/17 08:51 74 102/68 01/16/17 08:00 97.6 74 16 102/68 98 Room Air 01/16/17 04:00 97.9 72 16 98/62 98 Room Air 01/16/17 00:00 97.7 68 16 97/50 97 Room Air 01/15/17 21:29 89 153/57 01/15/17 20:00 97.7 89 18 153/57 99 Room Air 01/15/17 19:17 86 18 Room Air 01/15/17 17:07 82 177/80 01/15/17 16:32 177/80 01/15/17 16:00 98.4 84 18 138/78 94 Room Air 01/15/17 12:00 97.7 82 18 163/91 98 Room Air Intake and Output 01/15/17 01/16/17 19:00 07:00 Intake Total 240 ml Output Total 800 ml 400 ml Balance -800 ml -160 ml Intake Oral 240 ml Output Urine Total 800 ml 400 ml Objective General Appearance: no acute distress HEENT: normocephalic, atraumatic, anicteric, mucous membranes moist Respiratory/Chest: lungs clear, no respiratory distress, no accessory muscle use Cardiovascular: normal rate, regular rhythm, no JVD Abdomen: normal bowel sounds, soft, non tender, non distended Genitourinary: normal external genitalia Neurologic/Psychiatric: abnormal gait, alert, responsive - confused Musculoskeletal: atrophy - BLE Microbiology Date/Time Source Procedure Growth Status 01/14/17 01:32 Urine,Clean Catch Urine Culture - Preliminary NO GROWTH AFTER 24 HOURS Resulted 01/14/17 01:34 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 Complete Laboratory Tests 01/15/17 10:40: White Blood Count 5.0, Red Blood Count 4.04L, Hemoglobin 12.3, Hematocrit 38.8, Mean Corpuscular Volume 96, Mean Corpuscular Hemoglobin 30.3, Mean Corpuscular Hemoglobin Concent 31.6L, Red Cell Distribution Width 12.5, Platelet Count 233, Mean Platelet Volume 6.8, Neutrophils (%) (Auto) 66.1, Lymphocytes (%) (Auto) 23.0, Monocytes (%) (Auto) 6.9, Eosinophils (%) (Auto) 3.5H, Basophils (%) (Auto ) 0.5, Sodium Level 144, Potassium Level 4.6, Chloride Level 103, Carbon Dioxide Level 18L, Anion Gap 23H, Blood Urea Nitrogen 20, Creatinine 1.3H, Estimat Glomerular Filtration Rate , Glucose Level 161H, Hemoglobin A1c 7.5H, Uric Acid 5.5, Calcium Level 9.2, Phosphorus Level 2.8, Magnesium Level 1.7, Total Bilirubin 0.4, Gamma Glutamyl Transpeptidase 15, Aspartate Amino Transf ( AST/SGOT) 28, Alanine Aminotransferase (ALT/SGPT) 9, Alkaline Phosphatase 102, C -Reactive Protein, Quantitative < 0.3, Pro-B-Type Natriuretic Peptide 4722H, Total Protein 7.3, Albumin 4.2, Globulin 3.1, Albumin/Globulin Ratio 1.3 Current Medications Medications (Trade) Dose Ordered Sig/Asha Route PRN Reason Start Time Stop Time Status Last Admin Dose Admin Acetaminophen (Tylenol) 650 mg Q4H PRN ORAL fever 01/14/17 07:00 02/13/17 06:59 Acetaminophen/ Hydrocodone Bitart ([place] 5/325) 1 tab Q4H PRN ORAL For Pain 01/14/17 07:00 01/21/17 06:59 Albuterol/ Ipratropium (DuoNeb 0.5-3(2.5)mg/3ml) 3 ml EVERY 4 HOURS PRN HHN Shortness of Breath 01/14/17 07:00 01/19/17 06:59 Amlodipine Besylate (Norvasc) 5 mg BID ORAL 01/15/17 18:00 02/14/17 17:59 01/16/17 08:51 Aspirin (Ecotrin) 81 mg DAILY ORAL 01/15/17 10:00 02/14/17 09:59 01/16/17 08:50 Atorvastatin Calcium (Lipitor) 10 mg BEDTIME ORAL 01/14/17 21:00 02/13/17 20:59 01/15/17 21:28 Carvedilol (Coreg) 25 mg EVERY 12 HOURS ORAL 01/14/17 09:00 02/13/17 08:59 01/16/17 08:51 Dextrose (Dextrose 50%) STAT PRN IV Hypoglycemia 01/14/17 07:00 02/13/17 06:59 Heparin Sodium (Porcine) (Heparin 5000 units/ml) 5,000 units EVERY 12 HOURS SUBQ 01/14/17 09:00 02/13/17 08:59 01/16/17 08:51 Hydralazine HCl (Apresoline) 25 mg Q6H PRN ORAL SBP above 160 01/14/17 13:00 02/13/17 12:59 01/15/17 16:32 Insulin Aspart (NovoLOG) BEFORE MEALS AND HS SUBQ 01/14/17 11:30 02/13/17 11:29 01/16/17 05:46 Lactulose (Cephulac) 20 gm BID PRN ORAL constipation 01/14/17 10:45 02/13/17 10:44 Morphine Sulfate (Morphine Sulfate) 2 mg EVERY 4 HOURS PRN IVP Moderate Pain (Pain Scale 4-6) 01/14/17 07:00 01/21/17 06:59 Nitroglycerin (Ntg) 0.4 mg Q5M PRN SL Prn Chest Pain 01/14/17 07:00 02/13/17 06:59 Ondansetron HCl (Zofran) 4 mg Q6H PRN IVP Nausea & Vomiting 01/14/17 07:00 02/13/17 06:59 Polyethylene Glycol (Miralax) 17 gm DAILYPRN PRN ORAL Constipation 01/14/17 07:00 02/13/17 06:59 Risperidone (RisperDAL) 1 mg BEDTIME ORAL 01/14/17 21:00 02/13/17 20:59 01/15/17 21:29 Temazepam (Restoril) 15 mg HSPRN PRN ORAL Insomnia 01/14/17 07:00 01/21/17 06:59 01/15/17 21:28 Ch[facility] NewmanMedisys Health NetworkTonie Calderon NP Jan 16, 2017 09:40
--- NOTE | 2017-01-16 10:22 | General Progress Note ---
Assessment/Plan Status: stable Assessment/Plan Status; Diabetic Nephropathy- Cr baseline Anemia UTI Dehydration HTN other conditions: - ASHD - CKD / Diabetic - Hyperkalemia- resolved - Diabetes mellitus - Vascular dementia - History of CVA (cerebrovascular accident) Plan: no labs today Adjust BP meds- increase Norvasc Avoid Nephrotoxics- Monitor renal parameters antibiotics- Urine studies Subjective ROS Limited/Unobtainable: No Constitutional: Reports: malaise Allergies: Coded Allergies: NO KNOWN DRUG ALLERGIES (Verified Allergy, Unknown, 09/26/15) Objective Last 24 Hour Vital Signs Date Time Temp Pulse Resp B/P Pulse Ox O2 Delivery O2 Flow Rate FiO2 01/16/17 08:51 74 102/68 01/16/17 08:51 74 102/68 01/16/17 08:00 97.6 74 16 102/68 98 Room Air 01/16/17 04:00 97.9 72 16 98/62 98 Room Air 01/16/17 00:00 97.7 68 16 97/50 97 Room Air 01/15/17 21:29 89 153/57 01/15/17 20:00 97.7 89 18 153/57 99 Room Air 01/15/17 19:17 86 18 Room Air 01/15/17 17:07 82 177/80 01/15/17 16:32 177/80 01/15/17 16:00 98.4 84 18 138/78 94 Room Air 01/15/17 12:00 97.7 82 18 163/91 98 Room Air Intake and Output 01/15/17 01/16/17 19:00 07:00 Intake Total 240 ml Output Total 800 ml 400 ml Balance -800 ml -160 ml Intake Oral 240 ml Output Urine Total 800 ml 400 ml Laboratory Tests 01/15/17 10:40: White Blood Count 5.0, Red Blood Count 4.04L, Hemoglobin 12.3, Hematocrit 38.8, Mean Corpuscular Volume 96, Mean Corpuscular Hemoglobin 30.3, Mean Corpuscular Hemoglobin Concent 31.6L, Red Cell Distribution Width 12.5, Platelet Count 233, Mean Platelet Volume 6.8, Neutrophils (%) (Auto) 66.1, Lymphocytes (%) (Auto) 23.0, Monocytes (%) (Auto) 6.9, Eosinophils (%) (Auto) 3.5H, Basophils (%) (Auto ) 0.5, Sodium Level 144, Potassium Level 4.6, Chloride Level 103, Carbon Dioxide Level 18L, Anion Gap 23H, Blood Urea Nitrogen 20, Creatinine 1.3H, Estimat Glomerular Filtration Rate , Glucose Level 161H, Hemoglobin A1c 7.5H, Uric Acid 5.5, Calcium Level 9.2, Phosphorus Level 2.8, Magnesium Level 1.7, Total Bilirubin 0.4, Gamma Glutamyl Transpeptidase 15, Aspartate Amino Transf ( AST/SGOT) 28, Alanine Aminotransferase (ALT/SGPT) 9, Alkaline Phosphatase 102, C -Reactive Protein, Quantitative < 0.3, Pro-B-Type Natriuretic Peptide 4722H, Total Protein 7.3, Albumin 4.2, Globulin 3.1, Albumin/Globulin Ratio 1.3 Height (Feet): 5 Height (Inches): 1.00 Weight (Pounds): 146 General Appearance: no apparent distress Objective other PE not changed ROMELIA HAMPTON Jan 16, 2017 10:22
[2017-01-16 12:15] VITALS: BP 107/58
[2017-01-16 15:44] VITALS: BP 113/62
[2017-01-16 20:00] VITALS: BP 135/69
[2017-01-17] VITALS: BP 109/55
[2017-01-17 04:00] VITALS: BP 110/58
[2017-01-17] MEDS: NovoLOG Insulin Flexpen SUBQ SCH ×4 (06:26→21:06)
[2017-01-17 08:03] VITALS: BP 110/60
[2017-01-17 08:08] LABS: BASOPHILS % (AUTO) 0.6 % (0.0-2.0); EOSINOPHILS % (AUTO) 4.2 % (0.0-3.0); LYMPHOCYTES % (AUTO) 38.1 % (20.0-45.0); MEAN CORPUSCULAR HEMOGLOBIN 31.2 PG (27.0-31.0); MEAN CORPUSCULAR HGB CONC 32.6 G/DL (32.0-36.0); MEAN CORPUSCULAR VOLUME 96 FL (80-99); MEAN PLATELET VOLUME 6.9 FL (6.5-10.1); NEUTROPHILS % (AUTO) 48.2 % (45.0-75.0); PLATELET COUNT 218 K/UL (150-450); RED BLOOD COUNT 3.53 M/UL (4.20-5.40); RED CELL DISTRIBUTION WIDTH 12.7 % (11.6-14.8); WHITE BLOOD COUNT 4.6 K/UL (4.8-10.8)
[2017-01-17] MEDS: Aspirin EC 81mg tab ORAL SCH (08:27)
[2017-01-17] MEDS: Carvedilol 25mg Tab ORAL SCH ×2 (08:28→21:04)
[2017-01-17] MEDS: Heparin 5000 units/ml inj SUBQ SCH ×2 (08:28→21:05)
[2017-01-17 09:45] LABS: ALANINE AMINOTRANSFERASE 9 U/L (3-33); ALBUMIN/GLOBULIN RATIO 1.6 (1.0-2.7); ANION GAP 19 (5-15); ASPARTATE AMINO TRANSFERASE 25 U/L (5-40); CARBON DIOXIDE 22 mEQ/L (20-30); CHLORIDE 103 mEQ/L (98-107); CREATININE 1.7 mg/dL (0.5-0.9); HEMOLYSIS 8; PHOSPHORUS 4.3 mg/dL (2.5-4.8); POTASSIUM 4.3 mEQ/L (3.4-4.9); SODIUM 144 mEQ/L (135-145); TOTAL PROTEIN 6.1 g/dL (6.6-8.7)
[2017-01-17 11:24] VITALS: BP 121/68
--- NOTE | 2017-01-17 13:45 | General Progress Note ---
Assessment/Plan Status: stable Status Narrative Cr rising Assessment/Plan Status; Diabetic Nephropathy- Anemia UTI Dehydration HTN other conditions: - ASHD - CKD / Diabetic - Hyperkalemia- resolved - Diabetes mellitus - Vascular dementia - History of CVA (cerebrovascular accident) Plan: Adjust BP meds- Avoid Nephrotoxics- Monitor renal parameters antibiotics- Urine studies Subjective ROS Limited/Unobtainable: No Constitutional: Reports: malaise Allergies: Coded Allergies: NO KNOWN DRUG ALLERGIES (Verified Allergy, Unknown, 09/26/15) Objective Last 24 Hour Vital Signs Date Time Temp Pulse Resp B/P Pulse Ox O2 Delivery O2 Flow Rate FiO2 01/17/17 11:24 98.0 81 20 121/68 97 Room Air 01/17/17 08:28 86 110/60 01/17/17 08:28 86 110/60 01/17/17 08:03 98.4 86 20 110/60 98 Room Air 01/17/17 06:58 88 18 Room Air 01/17/17 04:00 97.7 83 18 110/58 95 Room Air 01/17/17 00:00 97.0 83 20 109/55 96 Room Air 01/16/17 23:08 91 135/69 01/16/17 20:00 97.5 91 18 135/69 98 Room Air 01/16/17 19:30 88 18 Room Air 21 01/16/17 15:44 98.0 86 20 113/62 98 Room Air Intake and Output 01/16/17 01/17/17 19:00 07:00 Intake Total 600 ml Output Total 600 ml 700 ml Balance 0 ml -700 ml Intake Oral 600 ml Output Urine Total 600 ml 700 ml Laboratory Tests 01/17/17 05:15: White Blood Count 4.6L, Red Blood Count 3.53L, Hemoglobin 11.0L, Hematocrit 33.8L, Mean Corpuscular Volume 96, Mean Corpuscular Hemoglobin 31.2H, Mean Corpuscular Hemoglobin Concent 32.6, Red Cell Distribution Width 12.7, Platelet Count 218, Mean Platelet Volume 6.9, Neutrophils (%) (Auto) 48.2, Lymphocytes (% ) (Auto) 38.1, Monocytes (%) (Auto) 9.0, Eosinophils (%) (Auto) 4.2H, Basophils (%) (Auto) 0.6, Sodium Level 144, Potassium Level 4.3, Chloride Level 103, Carbon Dioxide Level 22, Anion Gap 19H, Blood Urea Nitrogen 37H, Creatinine 1.7H , Estimat Glomerular Filtration Rate , Glucose Level 132H, Calcium Level 9.0, Phosphorus Level 4.3, Total Bilirubin 0.3, Aspartate Amino Transf (AST/SGOT) 25 , Alanine Aminotransferase (ALT/SGPT) 9, Alkaline Phosphatase 83, Total Protein 6.1L, Albumin 3.8, Globulin 2.3, Albumin/Globulin Ratio 1.6 Height (Feet): 5 Height (Inches): 1.00 Weight (Pounds): 146 General Appearance: no apparent distress Objective other PE not changed ROMELIA HAMPTON Jan 17, 2017 13:45
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
[2017-01-17 15:05] VITALS: BP 154/79
[2017-01-17 20:00] VITALS: BP 148/78
[2017-01-18] VITALS (7 sets, daily range): BP systolic 109–134; BP diastolic 59–80
[2017-01-18] MEDS: NovoLOG Insulin Flexpen SUBQ SCH ×5 (06:30→21:00)
[2017-01-18 06:56] LABS: ANION GAP 19 (5-15); CALCIUM 9.6 mg/dL (8.6-10.2); CARBON DIOXIDE 21 mEQ/L (20-30); CHLORIDE 105 mEQ/L (98-107); CREATININE 1.5 mg/dL (0.5-0.9); HEMOLYSIS 6; POTASSIUM 5.4 mEQ/L (3.4-4.9); SODIUM 145 mEQ/L (135-145)
[2017-01-18] MEDS: Aspirin EC 81mg tab ORAL SCH (09:00)
[2017-01-18] MEDS: Carvedilol 25mg Tab ORAL SCH ×3 (09:00→21:08)
[2017-01-18] MEDS: Heparin 5000 units/ml inj SUBQ SCH ×2 (09:00→21:00)
--- NOTE | 2017-01-18 09:21 | Infectious Diseases Prog Note ---
Assessment/Plan Assessment/Plan ASSESSMENT: 76 y/o female with: // hx of GAS.pyogenes bacteremia - // hx of recurrent UTI - hx of Renal US: Bilateral nephrolithiasis with minimal hydronephrosis bilaterally. Distal obstructing calculus or calculi not excluded. 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 // No evidence of Sepsis at this point // No leukocytosis or Fever // CKD US: Bilateral nonobstructive renal calculi. // DM // CAD s/p CABG - trop neg x1 - TTE: EF preserved, grade I diastolic dysfunction, trace valvular disease // Dementia // NH resident // Negative MRSA, VRE screens // NKDA // Full Code PLAN: - monitor pt off of AB Rx - monitor Cultures - monitor CBC, temperatures - monitor BMP - monitor CXray Subjective Constitutional: Denies: anorexia, chills, drenching sweats, fatigue, fever, no symptoms, other Allergies: Coded Allergies: NO KNOWN DRUG ALLERGIES (Verified Allergy, Unknown, 09/26/15) Objective Vital Signs Last 24 Hour Vital Signs Date Time Temp Pulse Resp B/P Pulse Ox O2 Delivery O2 Flow Rate FiO2 01/18/17 08:00 97.6 70 18 124/80 98 Room Air 01/18/17 04:00 97.6 86 18 109/59 Room Air 01/18/17 00:00 97.5 76 19 118/73 98 Room Air 01/17/17 21:04 83 148/78 01/17/17 20:00 98.1 83 20 148/78 97 Room Air 01/17/17 15:05 98.2 80 20 154/79 98 Room Air 01/17/17 11:24 98.0 81 20 121/68 97 Room Air Height (Feet): 5 Height (Inches): 1.00 Weight (Pounds): 146 HEENT: anicteric Respiratory/Chest: no respiratory distress Cardiovascular: regularly irregular Abdomen: no organomegaly Laboratory Tests Test 01/18/17 04:50 Sodium Level 145 mEQ/L (135-145) Potassium Level 5.4 mEQ/L (3.4-4.9) H Chloride Level 105 mEQ/L (98-107) Carbon Dioxide Level 21 mEQ/L (20-30) Anion Gap 19 (5-15) H Blood Urea Nitrogen 33 mg/dL (7-23) H Creatinine 1.5 mg/dL (0.5-0.9) H Estimat Glomerular Filtration Rate mL/min (>60) Glucose Level 134 mg/dL (74-106) H Calcium Level 9.6 mg/dL (8.6-10.2) Current Medications Medications (Trade) Dose Ordered Sig/Asha Route PRN Reason Start Time Stop Time Status Last Admin Dose Admin Acetaminophen (Tylenol) 650 mg Q4H PRN ORAL fever 01/14/17 07:00 02/13/17 06:59 Acetaminophen/ Hydrocodone Bitart ([place] 5/325) 1 tab Q4H PRN ORAL For Pain 01/14/17 07:00 01/21/17 06:59 Albuterol/ Ipratropium (DuoNeb 0.5-3(2.5)mg/3ml) 3 ml EVERY 4 HOURS PRN HHN Shortness of Breath 01/14/17 07:00 01/19/17 06:59 Amlodipine Besylate (Norvasc) 5 mg DAILY ORAL 01/17/17 09:00 02/16/17 08:59 01/17/17 08:28 Aspirin (Ecotrin) 81 mg DAILY ORAL 01/15/17 10:00 02/14/17 09:59 01/17/17 08:27 Atorvastatin Calcium (Lipitor) 10 mg BEDTIME ORAL 01/14/17 21:00 02/13/17 20:59 01/17/17 21:04 Carvedilol (Coreg) 25 mg EVERY 12 HOURS ORAL 01/14/17 09:00 02/13/17 08:59 01/17/17 21:04 Dextrose (Dextrose 50%) STAT PRN IV Hypoglycemia 01/14/17 07:00 02/13/17 06:59 Heparin Sodium (Porcine) (Heparin 5000 units/ml) 5,000 units EVERY 12 HOURS SUBQ 01/14/17 09:00 02/13/17 08:59 01/17/17 21:05 Hydralazine HCl (Apresoline) 25 mg Q6H PRN ORAL SBP above 160 01/14/17 13:00 02/13/17 12:59 01/15/17 16:32 Insulin Aspart (NovoLOG) BEFORE MEALS AND HS SUBQ 01/14/17 11:30 02/13/17 11:29 01/17/17 21:06 Lactulose (Cephulac) 20 gm BID PRN ORAL constipation 01/14/17 10:45 02/13/17 10:44 Morphine Sulfate (Morphine Sulfate) 2 mg EVERY 4 HOURS PRN IVP Moderate Pain (Pain Scale 4-6) 01/14/17 07:00 01/21/17 06:59 Nitroglycerin (Ntg) 0.4 mg Q5M PRN SL Prn Chest Pain 01/14/17 07:00 02/13/17 06:59 Ondansetron HCl (Zofran) 4 mg Q6H PRN IVP Nausea & Vomiting 01/14/17 07:00 02/13/17 06:59 Polyethylene Glycol (Miralax) 17 gm DAILYPRN PRN ORAL Constipation 01/14/17 07:00 02/13/17 06:59 01/17/17 08:37 Risperidone (RisperDAL) 1 mg BEDTIME ORAL 01/14/17 21:00 02/13/17 20:59 01/17/17 21:04 Temazepam (Restoril) 15 mg HSPRN PRN ORAL Insomnia 01/14/17 07:00 01/21/17 06:59 01/15/17 21:28 MINOO PANTOJA M.D. January 18, 2017 09:21
[2017-01-18] MEDS ORDERED: Sodium Polystyrene Sulfonate 15gm Powder ORAL ONE (10:30)
--- NOTE | 2017-01-18 15:12 | General Progress Note ---
Assessment/Plan Status: stable Status Narrative K 5.4 Cr down 1.5 Assessment/Plan Status; Diabetic Nephropathy- Anemia UTI Dehydration HTN other conditions: - ASHD - CKD / Diabetic - Hyperkalemia- resolved - Diabetes mellitus - Vascular dementia - History of CVA (cerebrovascular accident) Plan: Kayexelate- Adjust BP meds- Avoid Nephrotoxics- Monitor renal parameters antibiotics- Urine studies Subjective ROS Limited/Unobtainable: No Constitutional: Reports: malaise Allergies: Coded Allergies: NO KNOWN DRUG ALLERGIES (Verified Allergy, Unknown, 09/26/15) Objective Last 24 Hour Vital Signs Date Time Temp Pulse Resp B/P Pulse Ox O2 Delivery O2 Flow Rate FiO2 01/18/17 12:00 96.6 18 124/60 93 Room Air 01/18/17 09:00 70 124/80 01/18/17 09:00 70 124/80 01/18/17 08:00 97.6 70 18 124/80 98 Room Air 01/18/17 06:42 89 18 Room Air 01/18/17 04:00 97.6 86 18 109/59 Room Air 01/18/17 00:00 97.5 76 19 118/73 98 Room Air 01/17/17 21:04 83 148/78 01/17/17 20:00 98.1 83 20 148/78 97 Room Air Intake and Output 01/17/17 01/18/17 19:00 07:00 Intake Total 480 ml Output Total 800 ml Balance 480 ml -800 ml Intake Oral 480 ml Output Urine Total 800 ml # Bowel Movements 1 Laboratory Tests 01/18/17 04:50: Sodium Level 145, Potassium Level 5.4H, Chloride Level 105, Carbon Dioxide Level 21, Anion Gap 19H, Blood Urea Nitrogen 33H, Creatinine 1.5H, Estimat Glomerular Filtration Rate , Glucose Level 134H, Calcium Level 9.6 Height (Feet): 5 Height (Inches): 1.00 Weight (Pounds): 146 General Appearance: no apparent distress Cardiovascular: normal rate Respiratory/Chest: decreased breath sounds Abdomen: soft Objective other PE not changed ROMELIA HAMPTON January 18, 2017 15:12
--- NOTE | 2017-01-18 22:46 | Pulmonology Progress Note ---
Assessment/Plan Problems: (1) ATN (acute tubular necrosis) (2) Diabetes mellitus (3) Vascular dementia (4) UTI (urinary tract infection) Assessment/Plan slightly improving check labs in am if better will dc to assisted Subjective ROS Limited/Unobtainable: No Interval Events: improving Allergies: Coded Allergies: NO KNOWN DRUG ALLERGIES (Verified Allergy, Unknown, 09/26/15) Objective Last 24 Hour Vital Signs Date Time Temp Pulse Resp B/P Pulse Ox O2 Delivery O2 Flow Rate FiO2 01/18/17 21:00 85 129/63 01/18/17 20:00 97.8 87 18 134/69 97 Room Air 01/18/17 19:54 85 18 Room Air 01/18/17 16:00 98.4 86 18 129/63 93 Room Air 01/18/17 12:00 96.6 18 124/60 93 Room Air 01/18/17 09:00 70 124/80 01/18/17 09:00 70 124/80 01/18/17 08:00 97.6 70 18 124/80 98 Room Air 01/18/17 06:42 89 18 Room Air 01/18/17 04:00 97.6 86 18 109/59 Room Air 01/18/17 00:00 97.5 76 19 118/73 98 Room Air Intake and Output 01/17/17 01/18/17 18:59 06:59 Intake Total 480 ml Output Total 800 ml Balance 480 ml -800 ml Intake Oral 480 ml Output Urine Total 800 ml # Bowel Movements 1 General Appearance: WD/WN HEENT: normocephalic, atraumatic Respiratory/Chest: chest wall non-tender, lungs clear Cardiovascular: normal peripheral pulses, normal rate Abdomen: normal bowel sounds, soft, non tender, no scars Extremities: no cyanosis Laboratory Tests 01/18/17 04:50: Sodium Level 145, Potassium Level 5.4H, Chloride Level 105, Carbon Dioxide Level 21, Anion Gap 19H, Blood Urea Nitrogen 33H, Creatinine 1.5H, Estimat Glomerular Filtration Rate , Glucose Level 134H, Calcium Level 9.6 Current Medications Medications (Trade) Dose Ordered Sig/Asha Route PRN Reason Start Time Stop Time Status Last Admin Dose Admin Acetaminophen (Tylenol) 650 mg Q4H PRN ORAL fever 01/14/17 07:00 02/13/17 06:59 Acetaminophen/ Hydrocodone Bitart ([place] 5/325) 1 tab Q4H PRN ORAL For Pain 01/14/17 07:00 01/21/17 06:59 Albuterol/ Ipratropium (DuoNeb 0.5-3(2.5)mg/3ml) 3 ml EVERY 4 HOURS PRN HHN Shortness of Breath 01/14/17 07:00 01/19/17 06:59 Amlodipine Besylate (Norvasc) 5 mg DAILY ORAL 01/17/17 09:00 02/16/17 08:59 01/17/17 08:28 Aspirin (Ecotrin) 81 mg DAILY ORAL 01/15/17 10:00 02/14/17 09:59 01/17/17 08:27 Atorvastatin Calcium (Lipitor) 10 mg BEDTIME ORAL 01/14/17 21:00 02/13/17 20:59 01/17/17 21:04 Carvedilol (Coreg) 25 mg EVERY 12 HOURS ORAL 01/14/17 09:00 02/13/17 08:59 01/17/17 21:04 Dextrose (Dextrose 50%) STAT PRN IV Hypoglycemia 01/14/17 07:00 02/13/17 06:59 Heparin Sodium (Porcine) (Heparin 5000 units/ml) 5,000 units EVERY 12 HOURS SUBQ 01/14/17 09:00 02/13/17 08:59 01/17/17 21:05 Hydralazine HCl (Apresoline) 25 mg Q6H PRN ORAL SBP above 160 01/14/17 13:00 02/13/17 12:59 01/15/17 16:32 Insulin Aspart (NovoLOG) BEFORE MEALS AND HS SUBQ 01/14/17 11:30 02/13/17 11:29 01/18/17 17:15 Lactulose (Cephulac) 20 gm BID PRN ORAL constipation 01/14/17 10:45 02/13/17 10:44 Morphine Sulfate (Morphine Sulfate) 2 mg EVERY 4 HOURS PRN IVP Moderate Pain (Pain Scale 4-6) 01/14/17 07:00 01/21/17 06:59 Nitroglycerin (Ntg) 0.4 mg Q5M PRN SL Prn Chest Pain 01/14/17 07:00 02/13/17 06:59 Ondansetron HCl (Zofran) 4 mg Q6H PRN IVP Nausea & Vomiting 01/14/17 07:00 02/13/17 06:59 Polyethylene Glycol (Miralax) 17 gm DAILYPRN PRN ORAL Constipation 01/14/17 07:00 02/13/17 06:59 01/17/17 08:37 Risperidone (RisperDAL) 1 mg BEDTIME ORAL 01/14/17 21:00 02/13/17 20:59 01/17/17 21:04 Temazepam (Restoril) 15 mg HSPRN PRN ORAL Insomnia 01/14/17 07:00 01/21/17 06:59 01/15/17 21:28 JUAN LUIS ASHLEY January 18, 2017 22:46
[2017-01-19] VITALS: BP 131/66
[2017-01-19 04:00] VITALS: BP 144/77
[2017-01-19] MEDS: NovoLOG Insulin Flexpen SUBQ SCH ×3 (06:29→16:46)
[2017-01-19 06:34] LABS: BASOPHILS % (AUTO) 0.6 % (0.0-2.0); LYMPHOCYTES % (AUTO) 28.8 % (20.0-45.0); MEAN CORPUSCULAR HEMOGLOBIN 30.6 PG (27.0-31.0); MEAN CORPUSCULAR HGB CONC 32.7 G/DL (32.0-36.0); MEAN CORPUSCULAR VOLUME 94 FL (80-99); MEAN PLATELET VOLUME 7.2 FL (6.5-10.1); MONOCYTES % (AUTO) 8.9 % (1.0-10.0); NEUTROPHILS % (AUTO) 57.7 % (45.0-75.0); PLATELET COUNT 256 K/UL (150-450); RED BLOOD COUNT 3.77 M/UL (4.20-5.40); RED CELL DISTRIBUTION WIDTH 12.4 % (11.6-14.8); WHITE BLOOD COUNT 6.1 K/UL (4.8-10.8)
[2017-01-19 07:04] LABS: ALANINE AMINOTRANSFERASE 11 U/L (3-33); ALBUMIN/GLOBULIN RATIO 1.1 (1.0-2.7); ANION GAP 19 (5-15); ASPARTATE AMINO TRANSFERASE 28 U/L (5-40); CALCIUM 9.5 mg/dL (8.6-10.2); CARBON DIOXIDE 22 mEQ/L (20-30); CHLORIDE 100 mEQ/L (98-107); CREATININE 1.3 mg/dL (0.5-0.9); CRP QUANT 0.5 mg/dL (< 0.5); HEMOLYSIS 3; MAGNESIUM 1.7 mg/dL (1.7-2.5); POTASSIUM 4.8 mEQ/L (3.4-4.9); SODIUM 141 mEQ/L (135-145); TOTAL PROTEIN 7.6 g/dL (6.6-8.7)
[2017-01-19 08:08] VITALS: BP 143/86
[2017-01-19 08:19] LABS: ERYTHROCYTE SEDIMENTATION RATE 72 MM/HR (0-30)
[2017-01-19] MEDS: Carvedilol 25mg Tab ORAL SCH (09:34)
--- NOTE | 2017-01-19 09:37 | Infectious Diseases Prog Note ---
Assessment/Plan Assessment/Plan ASSESSMENT: 76 y/o female with: // hx of GAS.pyogenes bacteremia - // hx of recurrent UTI - hx of Renal US: Bilateral nephrolithiasis with minimal hydronephrosis bilaterally. Distal obstructing calculus or calculi not excluded. 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 // No evidence of Sepsis at this point // No leukocytosis or Fever // CKD US: Bilateral nonobstructive renal calculi. // DM // CAD s/p CABG - trop neg x1 - TTE: EF preserved, grade I diastolic dysfunction, trace valvular disease // Dementia // NH resident // Negative MRSA, VRE screens // NKDA // Full Code PLAN: - monitor pt off of AB Rx - monitor CBC, temperatures - monitor BMP - monitor CXray Subjective Allergies: Coded Allergies: NO KNOWN DRUG ALLERGIES (Verified Allergy, Unknown, 09/26/15) Subjective comfortable Objective Vital Signs Last 24 Hour Vital Signs Date Time Temp Pulse Resp B/P Pulse Ox O2 Delivery O2 Flow Rate FiO2 01/19/17 08:08 99.2 98 18 143/86 99 Room Air 01/19/17 04:00 97.9 93 18 144/77 94 Room Air 01/19/17 00:00 98.1 86 18 131/66 96 Room Air 01/18/17 21:00 85 129/63 01/18/17 20:00 97.8 87 18 134/69 97 Room Air 01/18/17 19:54 85 18 Room Air 01/18/17 16:00 98.4 86 18 129/63 93 Room Air 01/18/17 12:00 96.6 18 124/60 93 Room Air Height (Feet): 5 Height (Inches): 1.00 Weight (Pounds): 146 HEENT: anicteric Respiratory/Chest: no accessory muscle use Cardiovascular: no JVD Abdomen: no mass Microbiology Date/Time Source Procedure Growth Status 01/17/17 12:40 Blood Blood Culture - Preliminary NO GROWTH AFTER 24 HOURS Resulted 01/17/17 12:30 Blood Blood Culture - Preliminary NO GROWTH AFTER 24 HOURS Resulted Laboratory Tests Test 01/19/17 05:15 White Blood Count 6.1 K/UL (4.8-10.8) Red Blood Count 3.77 M/UL (4.20-5.40) L Hemoglobin 11.6 G/DL (12.0-16.0) L Hematocrit 35.4 % (37.0-47.0) L Mean Corpuscular Volume 94 FL (80-99) Mean Corpuscular Hemoglobin 30.6 PG (27.0-31.0) Mean Corpuscular Hemoglobin Concent 32.7 G/DL (32.0-36.0) Red Cell Distribution Width 12.4 % (11.6-14.8) Platelet Count 256 K/UL (150-450) Mean Platelet Volume 7.2 FL (6.5-10.1) Neutrophils (%) (Auto) 57.7 % (45.0-75.0) Lymphocytes (%) (Auto) 28.8 % (20.0-45.0) Monocytes (%) (Auto) 8.9 % (1.0-10.0) Eosinophils (%) (Auto) 4.0 % (0.0-3.0) H Basophils (%) (Auto) 0.6 % (0.0-2.0) Erythrocyte Sedimentation Rate 72 MM/HR (0-30) H Sodium Level 141 mEQ/L (135-145) Potassium Level 4.8 mEQ/L (3.4-4.9) Chloride Level 100 mEQ/L (98-107) Carbon Dioxide Level 22 mEQ/L (20-30) Anion Gap 19 (5-15) H Blood Urea Nitrogen 30 mg/dL (7-23) H Creatinine 1.3 mg/dL (0.5-0.9) H Estimat Glomerular Filtration Rate mL/min (>60) Glucose Level 209 mg/dL (74-106) H Calcium Level 9.5 mg/dL (8.6-10.2) Phosphorus Level 3.0 mg/dL (2.5-4.8) Magnesium Level 1.7 mg/dL (1.7-2.5) Total Bilirubin 0.4 mg/dL (0.0-1.2) Aspartate Amino Transf (AST/SGOT) 28 U/L (5-40) Alanine Aminotransferase (ALT/SGPT) 11 U/L (3-33) Alkaline Phosphatase 89 U/L (35-104) C-Reactive Protein, Quantitative 0.5 mg/dL (< 0.5) Total Protein 7.6 g/dL (6.6-8.7) Albumin 4.1 g/dL (3.5-5.2) Globulin 3.5 g/dL Albumin/Globulin Ratio 1.1 (1.0-2.7) Current Medications Medications (Trade) Dose Ordered Sig/Asha Route PRN Reason Start Time Stop Time Status Last Admin Dose Admin Acetaminophen (Tylenol) 650 mg Q4H PRN ORAL fever 01/14/17 07:00 02/13/17 06:59 Acetaminophen/ Hydrocodone Bitart ([place] 5/325) 1 tab Q4H PRN ORAL For Pain 01/14/17 07:00 01/21/17 06:59 Amlodipine Besylate (Norvasc) 5 mg DAILY ORAL 01/17/17 09:00 02/16/17 08:59 01/17/17 08:28 Aspirin (Ecotrin) 81 mg DAILY ORAL 01/15/17 10:00 02/14/17 09:59 01/17/17 08:27 Atorvastatin Calcium (Lipitor) 10 mg BEDTIME ORAL 01/14/17 21:00 02/13/17 20:59 01/17/17 21:04 Carvedilol (Coreg) 25 mg EVERY 12 HOURS ORAL 01/14/17 09:00 02/13/17 08:59 01/17/17 21:04 Dextrose (Dextrose 50%) STAT PRN IV Hypoglycemia 01/14/17 07:00 02/13/17 06:59 Heparin Sodium (Porcine) (Heparin 5000 units/ml) 5,000 units EVERY 12 HOURS SUBQ 01/14/17 09:00 02/13/17 08:59 01/17/17 21:05 Hydralazine HCl (Apresoline) 25 mg Q6H PRN ORAL SBP above 160 01/14/17 13:00 02/13/17 12:59 01/15/17 16:32 Insulin Aspart (NovoLOG) BEFORE MEALS AND HS SUBQ 01/14/17 11:30 02/13/17 11:29 01/19/17 06:29 Lactulose (Cephulac) 20 gm BID PRN ORAL constipation 01/14/17 10:45 02/13/17 10:44 Morphine Sulfate (Morphine Sulfate) 2 mg EVERY 4 HOURS PRN IVP Moderate Pain (Pain Scale 4-6) 01/14/17 07:00 01/21/17 06:59 Nitroglycerin (Ntg) 0.4 mg Q5M PRN SL Prn Chest Pain 01/14/17 07:00 02/13/17 06:59 Ondansetron HCl (Zofran) 4 mg Q6H PRN IVP Nausea & Vomiting 01/14/17 07:00 02/13/17 06:59 Polyethylene Glycol (Miralax) 17 gm DAILYPRN PRN ORAL Constipation 01/14/17 07:00 02/13/17 06:59 01/17/17 08:37 Risperidone (RisperDAL) 1 mg BEDTIME ORAL 01/14/17 21:00 02/13/17 20:59 01/17/17 21:04 Temazepam (Restoril) 15 mg HSPRN PRN ORAL Insomnia 01/14/17 07:00 01/21/17 06:59 01/15/17 21:28 MINOO PANTOJA M.D. January 19, 2017 09:37
[2017-01-19] MEDS: Aspirin EC 81mg tab ORAL SCH (09:38)
[2017-01-19] MEDS: Heparin 5000 units/ml inj SUBQ SCH (09:42)
[2017-01-19 12:11] VITALS: BP 132/77
--- NOTE | 2017-01-19 15:10 | General Progress Note ---
Assessment/Plan Status: stable Status Narrative Cr now baseline Assessment/Plan Status; Diabetic Nephropathy- Anemia UTI Dehydration HTN other conditions: - ASHD - CKD / Diabetic - Hyperkalemia- resolved - Diabetes mellitus - Vascular dementia - History of CVA (cerebrovascular accident) Plan: Adjust BP meds- Avoid Nephrotoxics- Monitor renal parameters antibiotics- Urine studies DC planning Subjective ROS Limited/Unobtainable: No Allergies: Coded Allergies: NO KNOWN DRUG ALLERGIES (Verified Allergy, Unknown, 09/26/15) Objective Last 24 Hour Vital Signs Date Time Temp Pulse Resp B/P Pulse Ox O2 Delivery O2 Flow Rate FiO2 01/19/17 12:11 98.2 76 22 132/77 98 Room Air 01/19/17 09:35 93 138/93 01/19/17 09:34 93 138/94 01/19/17 08:08 99.2 98 18 143/86 99 Room Air 01/19/17 04:00 97.9 93 18 144/77 94 Room Air 01/19/17 00:00 98.1 86 18 131/66 96 Room Air 01/18/17 21:00 85 129/63 01/18/17 20:00 97.8 87 18 134/69 97 Room Air 01/18/17 19:54 85 18 Room Air 01/18/17 16:00 98.4 86 18 129/63 93 Room Air Intake and Output 01/18/17 01/19/17 19:00 07:00 Intake Total 180 ml Output Total 450 ml 680 ml Balance -270 ml -680 ml Intake Oral 180 ml Output Urine Total 450 ml 680 ml Laboratory Tests 01/19/17 05:15: White Blood Count 6.1, Red Blood Count 3.77L, Hemoglobin 11.6L, Hematocrit 35.4L , Mean Corpuscular Volume 94, Mean Corpuscular Hemoglobin 30.6, Mean Corpuscular Hemoglobin Concent 32.7, Red Cell Distribution Width 12.4, Platelet Count 256, Mean Platelet Volume 7.2, Neutrophils (%) (Auto) 57.7, Lymphocytes (% ) (Auto) 28.8, Monocytes (%) (Auto) 8.9, Eosinophils (%) (Auto) 4.0H, Basophils (%) (Auto) 0.6, Erythrocyte Sedimentation Rate 72H, Sodium Level 141, Potassium Level 4.8, Chloride Level 100, Carbon Dioxide Level 22, Anion Gap 19H, Blood Urea Nitrogen 30H, Creatinine 1.3H, Estimat Glomerular Filtration Rate , Glucose Level 209H, Calcium Level 9.5, Phosphorus Level 3.0, Magnesium Level 1.7 , Total Bilirubin 0.4, Aspartate Amino Transf (AST/SGOT) 28, Alanine Aminotransferase (ALT/SGPT) 11, Alkaline Phosphatase 89, C-Reactive Protein, Quantitative 0.5, Total Protein 7.6, Albumin 4.1, Globulin 3.5, Albumin/ Globulin Ratio 1.1 Height (Feet): 5 Height (Inches): 1.00 Weight (Pounds): 146 General Appearance: no apparent distress Objective other PE not changed ROMELIA HAMPTON January 19, 2017 15:10
[2017-01-19 16:12] VITALS: BP 163/90
--- NOTE | 2017-01-19 16:32 | Pulmonology Progress Note ---
Assessment/Plan Problems: (1) ATN (acute tubular necrosis) (2) Diabetes mellitus (3) Vascular dementia (4) UTI (urinary tract infection) Assessment/Plan continues to improve check labs in two weeks dc to senior care today Subjective ROS Limited/Unobtainable: No Constitutional: Reports: no symptoms HEENT: Repors: no symptoms Allergies: Coded Allergies: NO KNOWN DRUG ALLERGIES (Verified Allergy, Unknown, 09/26/15) Objective Last 24 Hour Vital Signs Date Time Temp Pulse Resp B/P Pulse Ox O2 Delivery O2 Flow Rate FiO2 01/19/17 16:12 98.2 80 18 163/90 97 Room Air 01/19/17 12:11 98.2 76 22 132/77 98 Room Air 01/19/17 09:35 93 138/93 01/19/17 09:34 93 138/94 01/19/17 08:08 99.2 98 18 143/86 99 Room Air 01/19/17 04:00 97.9 93 18 144/77 94 Room Air 01/19/17 00:00 98.1 86 18 131/66 96 Room Air 01/18/17 21:00 85 129/63 01/18/17 20:00 97.8 87 18 134/69 97 Room Air 01/18/17 19:54 85 18 Room Air Intake and Output 01/18/17 01/19/17 19:00 07:00 Intake Total 180 ml Output Total 450 ml 680 ml Balance -270 ml -680 ml Intake Oral 180 ml Output Urine Total 450 ml 680 ml General Appearance: WD/WN HEENT: normocephalic Respiratory/Chest: chest wall non-tender, lungs clear Cardiovascular: normal peripheral pulses, normal rate Abdomen: normal bowel sounds, soft, non tender Genitourinary: normal external genitalia Extremities: no cyanosis Skin: no rash Neurologic/Psychiatric: no motor/sensory deficits Lymphatic: no neck adenopathy Microbiology Date/Time Source Procedure Growth Status 01/17/17 12:40 Blood Blood Culture - Preliminary NO GROWTH AFTER 24 HOURS Resulted 01/17/17 12:30 Blood Blood Culture - Preliminary NO GROWTH AFTER 24 HOURS Resulted Laboratory Tests 01/19/17 05:15: White Blood Count 6.1, Red Blood Count 3.77L, Hemoglobin 11.6L, Hematocrit 35.4L , Mean Corpuscular Volume 94, Mean Corpuscular Hemoglobin 30.6, Mean Corpuscular Hemoglobin Concent 32.7, Red Cell Distribution Width 12.4, Platelet Count 256, Mean Platelet Volume 7.2, Neutrophils (%) (Auto) 57.7, Lymphocytes (% ) (Auto) 28.8, Monocytes (%) (Auto) 8.9, Eosinophils (%) (Auto) 4.0H, Basophils (%) (Auto) 0.6, Erythrocyte Sedimentation Rate 72H, Sodium Level 141, Potassium Level 4.8, Chloride Level 100, Carbon Dioxide Level 22, Anion Gap 19H, Blood Urea Nitrogen 30H, Creatinine 1.3H, Estimat Glomerular Filtration Rate , Glucose Level 209H, Calcium Level 9.5, Phosphorus Level 3.0, Magnesium Level 1.7 , Total Bilirubin 0.4, Aspartate Amino Transf (AST/SGOT) 28, Alanine Aminotransferase (ALT/SGPT) 11, Alkaline Phosphatase 89, C-Reactive Protein, Quantitative 0.5, Total Protein 7.6, Albumin 4.1, Globulin 3.5, Albumin/ Globulin Ratio 1.1 Current Medications Medications (Trade) Dose Ordered Sig/Asha Route PRN Reason Start Time Stop Time Status Last Admin Dose Admin Acetaminophen (Tylenol) 650 mg Q4H PRN ORAL fever 01/14/17 07:00 02/13/17 06:59 Acetaminophen/ Hydrocodone Bitart (Finley 5/325) 1 tab Q4H PRN ORAL For Pain 01/14/17 07:00 01/21/17 06:59 Amlodipine Besylate (Norvasc) 5 mg DAILY ORAL 01/17/17 09:00 02/16/17 08:59 01/19/17 09:35 Aspirin (Ecotrin) 81 mg DAILY ORAL 01/15/17 10:00 02/14/17 09:59 01/19/17 09:38 Atorvastatin Calcium (Lipitor) 10 mg BEDTIME ORAL 01/14/17 21:00 02/13/17 20:59 01/17/17 21:04 Carvedilol (Coreg) 25 mg EVERY 12 HOURS ORAL 01/14/17 09:00 02/13/17 08:59 01/19/17 09:34 Dextrose (Dextrose 50%) STAT PRN IV Hypoglycemia 01/14/17 07:00 02/13/17 06:59 Heparin Sodium (Porcine) (Heparin 5000 units/ml) 5,000 units EVERY 12 HOURS SUBQ 01/14/17 09:00 02/13/17 08:59 01/19/17 09:42 Hydralazine HCl (Apresoline) 25 mg Q6H PRN ORAL SBP above 160 01/14/17 13:00 02/13/17 12:59 01/15/17 16:32 Insulin Aspart (NovoLOG) BEFORE MEALS AND HS SUBQ 01/14/17 11:30 02/13/17 11:29 01/19/17 11:48 Lactulose (Cephulac) 20 gm BID PRN ORAL constipation 01/14/17 10:45 02/13/17 10:44 Morphine Sulfate (Morphine Sulfate) 2 mg EVERY 4 HOURS PRN IVP Moderate Pain (Pain Scale 4-6) 01/14/17 07:00 01/21/17 06:59 Nitroglycerin (Ntg) 0.4 mg Q5M PRN SL Prn Chest Pain 01/14/17 07:00 02/13/17 06:59 Ondansetron HCl (Zofran) 4 mg Q6H PRN IVP Nausea & Vomiting 01/14/17 07:00 02/13/17 06:59 Polyethylene Glycol (Miralax) 17 gm DAILYPRN PRN ORAL Constipation 01/14/17 07:00 02/13/17 06:59 01/17/17 08:37 Risperidone (RisperDAL) 1 mg BEDTIME ORAL 01/14/17 21:00 02/13/17 20:59 01/17/17 21:04 Temazepam (Restoril) 15 mg HSPRN PRN ORAL Insomnia 01/14/17 07:00 01/21/17 06:59 01/15/17 21:28 JUAN LUIS ASHLEY January 19, 2017 16:32
[2017-01-19 16:43] VITALS: BP 163/90
[2017-01-19] MEDS: HydrALAZINE 25mg tab ORAL PRN (16:43)
--- NOTE | 2017-01-20 18:23 | Discharge Summary ---
Discharge Summary Hospital Course Date of Admission Jan 14, 2017 at 02:17 Date of Discharge January 19, 2017 at 19:15 Admitting Diagnosis URINARY TRACT INFECTION; ALTERED MENTAL STATUS HPI Ana Maria Moran is a 76 year old female who was admitted on Jan 14, 2017 at 02: 17 for Urinary Tract Infection,Altered Mental Status Hospital Course [id number] Discharge Discharge Disposition Patient was discharged to SNF/Subacute Facility(03) Discharge Diagnoses: Janiya Cordon NP January 20, 2017 18:23
--- NOTE | 2017-01-21 01:28 | Discharge Summary 2 SIG ---
DATE OF ADMISSION: 01/14/2017 DATE OF DISCHARGE: 01/19/2017 CONSULTANTS: 1. Joshua Casillas M.D. 2. Nathan Whaley M.D. BRIEF HOSPITAL COURSE: The patient is a 76-year-old female with a history of CVA and longterm resident, was brought in for evaluation of generalized weakness, abnormal laboratories with dehydration, and has not been eating. She was taken to [facility] and on evaluation, there was no focal deficits to indicate TIA or CVA. Weakness, and dehydration was probably secondary to infection from UTI. She was started on IV antibiotics and was admitted for further hydration. She was followed by Dr. Whaley. She has UA that initially showed pyuria and too numerous to count WBC, however, repeat has been normal. She had a history of recurrent UTI and group A Streptococcus pyogenes bacteremia. She was taken off antibiotics and was observed off antibiotics. Urine culture did not isolate any growth. Blood culture did not isolate any growth. Dr. Casillas was consulted for evaluation of renal failure. The patient has chronic kidney disease secondary to diabetic nephropathy. She had hyperkalemia and was given Kayexalate. Ultrasound of the kidneys showed bilateral nonobstructive renal calculi. She was continued on antihypertensive, Norvasc, Coreg, and hydralazine and was also given Lipitor for cholesterol. Blood sugar was monitored and was given insulin sliding scale. Hemoglobin A1c was 7.5. She underwent physical therapy and occupational therapy and the patient was eventually discharged back to longterm. FINAL DIAGNOSES: 1. Acute kidney injury with possible acute tubular necrosis on chronic kidney disease likely secondary to combination of diabetic nephropathy and dehydration. 2. Diabetic nephropathy. 3. Dehydration. 4. Pyuria possible urinary tract infection . 5. Vascular dementia. 6. Atherosclerotic heart disease. 7. Hypertension. 8. Diabetes mellitus out of control. 9. Anemia. Anthony Solomon M.D. I have been assigned to dictate discharge summary on this account and I was not involved in the patient's management. Janiya Cordon N.P. DR: Tressa JOB#: [id number] CC: KYLE
== END 2017-01-19 19:15 | DRG 682 ==
LOC: EDBD 00:30 → EDSEX 00:30 → EMR 01:00 → 4W 02:17 → EDBEDREQ 02:30 → 4W 01-15 05:09
DX: N17.0 Acute kidney failure with tubular necrosis (principal); G93.40 Encephalopathy, unspecified; E11.22 Type 2 diabetes mellitus with diabetic chronic kidney disease; E11.65 Type 2 diabetes mellitus with hyperglycemia; N39.0 Urinary tract infection, site not specified; E87.5 Hyperkalemia; E86.0 Dehydration; I25.10 Atherosclerotic heart disease of native coronary artery without angina pectoris; Z95.1 Presence of aortocoronary bypass graft; Z86.73 Personal history of transient ischemic attack (TIA), and cerebral infarction without residual deficits; I12.9 Hypertensive chronic kidney disease with stage 1 through stage 4 chronic kidney disease, or unspecified chronic kidney disease; N18.9 Chronic kidney disease, unspecified; F01.50 Vascular dementia, unspecified severity, without behavioral disturbance, psychotic disturbance, mood disturbance, and anxiety; D64.9 Anemia, unspecified; Z79.4 Long term (current) use of insulin; Z79.01 Long term (current) use of anticoagulants; K21.9 Gastro-esophageal reflux disease without esophagitis; G62.9 Polyneuropathy, unspecified; N20.0 Calculus of kidney; M19.90 Unspecified osteoarthritis, unspecified site
CPT/HCPCS: 36415; 76775; 80048; 80053; 81001; 82436; 82550; 82962; 82977; 83036; 83735; 83880; 83930; 83935; 84100; 84133; 84300; 84439; 84550; 85025; 85651; 86140; 87040; 87081; 87086; 89050; 94664; J1815

== ENCOUNTER 2017-03-18 01:09 | Emergency (ER) | payer MEDICAID, MEDICARE ==
[~2017-03-18] VITALS: Ht 154.9 cm; Wt 63.5 kg
[~2017-03-18 01:09] MED LIST changes: +LEVEMIR100 UNIT/1 SUBQ; +NOVOLIN R100 UNIT/1 SUBQ
[2017-03-18 02:35] VITALS: BP 127/62
[2017-03-18] MEDS ORDERED: PROTONIX40 MG ORAL (03:05)
[2017-03-18] MEDS ORDERED: SENNA8.6 M2 PO (03:05)
--- NOTE | 2017-03-18 03:57 | Emergency Room Report ---
History of Present Illness General Chief Complaint: Multiple Trauma/Fall Source: Medical Record Present Illness HPI 76-year-old female presents to ED for evaluation. Patient resides in convalescent home. Tonight her staff noticed that patient fell from the bed and was sitting on the floor. Unwitnessed. Patient denies hitting her head or LOC. Patient did walk as per EMS however nursing Felix patient was complaining of pain in her legs and back. Upon arrival patient denies any pain in her legs or back. Unclear whether she hit her head. Denies headache or LOC. No other aggravating or relieving factors. Denies any other associated symptoms Allergies: Coded Allergies: NO KNOWN DRUG ALLERGIES (Verified Allergy, Unknown, 09/26/15) Patient History Past Medical History: DM, CVA/TIA, dementia Past Surgical History: none Pertinent Family History: none Social History: Denies: alcohol use, drug use, smoking Last Menstrual Period: NA Now: No Immunizations: UTD Reviewed Nursing Documentation: PMH: Agreed, PSxH: Agreed Nursing Documentation-PMH Hx Diabetes: Yes Hx Cancer: No Hx Cerebrovascular Accident: Yes - date unspecified Hx Dementia: Yes Hx Peripheral Neuropathy: Yes Hx Memory Loss: Yes Hx Weakness: Yes Review of Systems All Other Systems: negative except mentioned in HPI Physical Exam Vital Signs Date Time Temp Pulse Resp B/P Pulse Ox O2 Delivery O2 Flow Rate FiO2 03/18/17 01:04 98.4 87 20 132/75 99 Room Air Sp02 EP Interpretation: reviewed, normal General Appearance: no apparent distress, alert, GCS 15, non-toxic Head: normocephalic, atraumatic Eyes: bilateral eye PERRL, bilateral eye normal inspection ENT: hearing grossly normal, normal pharynx, no angioedema, normal voice Neck: full range of motion, supple/symm/no masses Respiratory: chest non-tender, lungs clear, normal breath sounds, speaking full sentences Cardiovascular #1: regular rate, rhythm, no edema Cardiovascular #2: 2+ carotid (R), 2+ carotid (L), 2+ radial (R), 2+ radial (L) , 2+ dorsalis pedis (R), 2+ dorsalis pedis (L) Gastrointestinal: normal bowel sounds, non tender, soft, non-distended, no guarding, no rebound Rectal: deferred Genitourinary: normal inspection, no CVA tenderness Musculoskeletal: back normal, gait/station normal, normal range of motion, non- tender Neurologic: alert, oriented x3, responsive, motor strength/tone normal, sensory intact, speech normal Psychiatric: judgement/insight normal, memory normal, mood/affect normal, no suicidal/homicidal ideation Reflexes: 3+ bicep (R), 3+ bicep (L), 3+ tricep (R), 3+ tricep (L), 3+ knee (R) , 3+ knee (L) Skin: normal color, no rash, warm/dry, well hydrated Lymphatic: no adenopathy Medical Decision Making Diagnostic Impression: Primary Impression: Fall from bed Qualified Codes: W06.XXXA - Fall from bed, initial encounter ER Course Hospital Course 76-year-old female presents to ED status post fall from bed a long term. Witnessed Differential diagnoses include: Fracture, dislocation, sprain, contusion Clinical course Patient placed on stretcher. After initial history and physical, I ordered CT of head, fine and pelvis. Bilateral femur x-rays Xrays prelim read shows no acute fracture/dislocation. CT head unremarkable CT pelvis-old pubic rami fracture CT L-spine-old compression fractures of T12-L1 and L2 but no acute process Patient not in any distress, no pain and can be transported back to long term Diagnosis - fall from bed Stable and discharged to SNF. weight bear as tolerated. Followup with PMD. Return to ED if symptoms recur or worsen Other X-Ray Diagnostic Results X-Ray ordered: Left femur, right femur # of Views/Limited Vs Complete: 3 View EP Interpretation: Yes Interpretation: no fractures, no dislocation, no soft tissue swelling Indication: Pain Impression: No acute disease Interpreting ER Provider: Yonas Lam MD CT/MRI/US Diagnostic Results CT/MRI/US Diagnostic Results : Imaging Test Ordered: CT Head, CT Lspine, CT Pelvis Impression CT head- no acute process CT pelvis - old pubic rami fx, not acute CT L spine - T12, L1, L2 old compression fx, not acute Last Vital Signs Date Time Temp Pulse Resp B/P Pulse Ox O2 Delivery O2 Flow Rate FiO2 03/18/17 02:35 99.0 83 19 127/62 95 Room Air Status: improved Disposition: [facility] SNF Condition: Stable Referrals: JUAN LUIS ASHLEY (PCP) Patient Instructions: Fall Prevention in the Home, [id number] YONAS LAM M.D. Mar 18, 2017 03:57
[2017-03-18 03:58] VITALS: BP 126/64
[2017-03-18 03:59] VITALS: BP 126/64
--- NOTE | 2017-03-18 08:23 | Diagnostic Imaging Report ---
Indication: FALL Technique: Noncontrast spiral acquisitions obtained through the pelvis. Multiplanar reconstructions generated. Total dose length product 423 mGycm. CTDIvol(s) 14 mGy. Dose reduction achieved using automated exposure control Comparison: [address] Findings: Right inferior pubic ramus fracture again demonstrated. No acute fractures. No dislocations. Joint spaces are preserved. There is degenerative lumbosacral spondylosis. Slight left buttock soft tissue stranding could indicate minimal contusion.. The bladder is distended. The uterus demonstrates extensive arcuate artery calcification. There are atherosclerotic vascular calcifications. Impression: Possible minimal left buttock contusion No acute bony trauma Distended bladder Incidental findings as described This agrees with the preliminary interpretation provided overnight by [employer] [facility]. The CT scanner at [facility] is accredited by the [employer] and the scans are performed using protocols designed to limit radiation exposure to as low as reasonably achievable to attain images of sufficient resolution adequate for diagnostic evaluation.
--- NOTE | 2017-03-18 08:35 | Diagnostic Imaging Report ---
Indications: FALL Technique: Spiral acquisitions obtained through the lumbar spine. Multiplanar reconstructions were generated. No IV contrast utilized. Total dose length product 613 mGycm. CTDIvol(s) 19 mGy. Dose reduction achieved using automated exposure control Comparison: Lumbar MRI dated 10/23/2015, bone on images from abdomen and pelvic CT 01/31/2016 Findings: Burst/compression fracture deformity of the L2 vertebral body is again demonstrated, with significant depression of the endplate centrally, and posterior retropulsion of the posterior wall by about 7 mm. This is unchanged in appearance since previous study. Also demonstrated is anterior wedge and superior endplate compression fracture deformity of the L1 vertebral body with some superior retropulsion. This is likewise unchanged. There is very slight compression deformity of the T12 vertebral body, unchanged. The remaining vertebral body heights are preserved. The compression fracture deformities result in kyphotic deformity of the upper lumbar spine. No definite acute fractures. There is progressive degenerative change and vacuum formation L4-5 and L5-S1. The remaining disc spaces are preserved. At T11-12, there is right subarticular disc protrusion which does not narrow the spinal canal but may narrow the neural foramen. At T12-L1, no significant disc bulge or protrusion. The bony canal is narrowed due to the posterior retropulsion of the L1 compression fracture and the posterior wall. This results in mild spinal stenosis. The neural foramina are preserved. At L1-2, no significant disc bulge or protrusion. However, the posterior retropulsion of the L2 posterior wall results in moderate spinal stenosis. No significant neural foraminal narrowing. This appears unchanged At L2-3, there is generalized mild circumferential annular bulge. This, in combination with facet hypertrophy and posterior osteophytes results in mild narrowing of the left neural foramen. No significant spinal canal stenosis. This appears unchanged At L3-4, there is circumferential annular bulge. This, in combination with ligamentum flavum hypertrophy and prominent posterior epidural fat results in mild narrowing of the spinal canal both AP and transverse. The bulging disc and posterior osteophytes also result in mild to moderate narrowing of the left neural foramen. The right neural foramen is preserved. This is unchanged from the previous study At L4-5, there is circumferential annular bulge. This, in combination with ligamentum flavum hypertrophy hands facet hypertrophy results in moderate narrowing of the spinal canal. This appears to progressed from the previous MRI there is also moderate narrowing of the right neural foramen L5-S1, there is circumferential annular bulge which results in mild narrowing of spinal canal and possible impingement upon the right lateral recess. The neural foramina are preserved. Appearance is unchanged. Extraspinal soft tissues are significant for the presence of uterine arcuate artery calcifications, and extensive atherosclerotic arterial disease. Impression: No acute bony trauma Degenerative changes with spinal stenosis and neural foraminal stenoses as detailed on a level by level basis above This agrees with the preliminary interpretation provided overnight by [employer]. The CT scanner at [facility] is accredited by the [employer] and the scans are performed using protocols designed to limit radiation exposure to as low as reasonably achievable to attain images of sufficient resolution adequate for diagnostic evaluation.
--- NOTE | 2017-03-18 08:37 | Diagnostic Imaging Report ---
Indication: FALL, head trauma, pain Technique: spiral acquisitions obtained through the brain. Angled axial and coronal 5 x 5 mm slices were reconstructed. No IV contrast utilized. Radiation dose was minimized using automated exposure control Total dose length product 1445 mGycm. CTDIvol(s) 70 mGy Comparison: none FINDINGS: No acute hemorrhage or edema. No mass effect or midline shift. There is age-related enlargement of the ventricles and extra axial CSF spaces. There is periventricular deep white matter ischemic change. Normal mcmullen-white differentiation. Is evidence of prior bilateral cataract surgery. Visualized sinuses are unremarkable. Intact calvarium. IMPRESSION: Chronic and age-related changes. Negative for acute intracranial bleed or mass effect This agrees with the preliminary interpretation provided overnight by [employer]. The CT scanner at [facility] is accredited by the [employer] and the scans are performed using protocols designed to limit radiation exposure to as low as reasonably achievable to attain images of sufficient resolution adequate for diagnostic evaluation
--- NOTE | 2017-03-18 16:35 | Diagnostic Imaging Report ---
Indications: PAIN, status post fall Technique: Two views of the right femur Comparison: None Findings: No acute fractures. No dislocations. There is a right knee prosthesis. There are extensive vascular calcifications. There is an old healed right inferior pubic ramus fracture deformity. Impression: No acute process
--- NOTE | 2017-03-19 08:24 | Diagnostic Imaging Report ---
Indications: PAIN, status post fall Technique: Two views of the left femur Comparison: None Findings: Bones are osteoporotic. No acute fractures. No dislocations. Surgical clips are seen about the left knee. There are extensive vascular calcifications Impression: No acute process
== END 2017-03-18 04:01 ==
LOC: EDBD 01:09 → EMR 01:44
DX: S32.021A Stable burst fracture of second lumbar vertebra, initial encounter for closed fracture (principal); W06.XXXA Fall from bed, initial encounter; Y92.193 Bedroom in other specified residential institution as the place of occurrence of the external cause; M48.06 Spinal stenosis, lumbar region; R51 Headache; M51.24 Other intervertebral disc displacement, thoracic region; M47.816 Spondylosis without myelopathy or radiculopathy, lumbar region; E11.9 Type 2 diabetes mellitus without complications; F03.90 Unspecified dementia, unspecified severity, without behavioral disturbance, psychotic disturbance, mood disturbance, and anxiety; Z86.73 Personal history of transient ischemic attack (TIA), and cerebral infarction without residual deficits
CPT/HCPCS: 70450; 72131; 72192; 99284

== ENCOUNTER 2017-06-16 15:45 | Inpatient (IN) | payer MEDICARE, MEDICAID ==
[2017-06-16] VITALS (7 sets, daily range): BP systolic 123–180; BP diastolic 42–105
[~2017-06-16] VITALS: Ht 157.5 cm; Wt 61.8 kg
[~2017-06-16 15:45] MED LIST changes: +COREG6.25 MG ORAL; +LANTUS SOL100 UNIT/1 SUBQ; +PROTONIX40 MG ORAL; +SENNA8.6 M2 PO
[2017-06-16] MEDS ORDERED: Sodium Chloride 500ML 500 ML IV ONE (16:16)
[2017-06-16 18:00] LABS: BASOPHILS % (AUTO) 0.8 % (0.0-2.0); LYMPHOCYTES % (AUTO) 28.1 % (20.0-45.0); MEAN CORPUSCULAR HEMOGLOBIN 30.3 PG (27.0-31.0); MEAN CORPUSCULAR HGB CONC 31.9 G/DL (32.0-36.0); MEAN CORPUSCULAR VOLUME 95 FL (80-99); MONOCYTES % (AUTO) 7.5 % (1.0-10.0); NEUTROPHILS % (AUTO) 57.6 % (45.0-75.0); PLATELET COUNT 253 K/UL (150-450); RED BLOOD COUNT 3.85 M/UL (4.20-5.40); RED CELL DISTRIBUTION WIDTH 12.2 % (11.6-14.8); WHITE BLOOD COUNT 6.5 K/UL (4.8-10.8)
[2017-06-16 18:18] LABS: TROPONIN I < 0.30 ng/mL (<=0.30)
[2017-06-16 18:21] LABS: ALANINE AMINOTRANSFERASE 9 U/L (3-33); ALBUMIN/GLOBULIN RATIO 1.1 (1.0-2.7); ANION GAP 16 (5-15); ASPARTATE AMINO TRANSFERASE 21 U/L (5-40); CARBON DIOXIDE 21 mEQ/L (20-30); CHLORIDE 102 mEQ/L (98-107); CREATININE 2.3 mg/dL (0.5-0.9); HEMOLYSIS 7; POTASSIUM 5.7 mEQ/L (3.4-4.9); SODIUM 139 mEQ/L (135-145); TOTAL PROTEIN 8.3 g/dL (6.6-8.7)
[2017-06-16 18:32] LABS: CKMB 6.7 ng/mL (< 3.8)
[2017-06-16 18:43] LABS: APPEARANCE,URINE CLOUDY; KETONES,URINE NEGATIVE (NEGATIVE); LEUKOCYTE ESTERASE ,URINE 3+ (NEGATIVE); NITRITE,URINE NEGATIVE (NEGATIVE); PH,URINE 6 (4.5-8.0); PROTEIN,URINE 1+ (NEGATIVE); UROBILINOGEN,URINE NORMAL MG/DL (0.0-1.0)
[2017-06-16] MEDS ORDERED: BUMETANIDE1 MG ORAL (18:47)
[2017-06-16] MEDS ORDERED: CARVEDILOL12.5 MG ORAL (18:47)
[2017-06-16] MEDS ORDERED: ZANTAC150 MG ORAL (18:47)
[2017-06-16] MEDS ORDERED: ATORVASTATIN CA40 MG ORAL (18:47)
[2017-06-16] MEDS ORDERED: ELIQUIS2.5 MG PO (18:47)
[2017-06-16] MEDS ORDERED: VITAMIN C250 MG ORAL (18:47)
[2017-06-16 19:16] LABS: BACTERIA,URINE MANY /HPF; SQUAMOUS EPITHELIAL CELL,UR FEW /LPF (NONE/OCC)
--- NOTE | 2017-06-16 19:25 | Emergency Room Report ---
History of Present Illness General Chief Complaint: Abnormal Labs Source: Patient Present Illness HPI 76-year-old female presents to ED for evaluation. patient comes from [facility] for elevated potassium. Potassium was 6.2; patient is given Kayexalate in the halfway but was sent here for evaluation. Patient states she feels okay. Denies any chest pain or shortness of breath. Denies any dizziness. No other aggravating or leading factors. Denies any other associated symptoms Allergies: Coded Allergies: NO KNOWN DRUG ALLERGIES (Verified Allergy, Unknown, 09/26/15) Patient History Past Medical History: DM, CVA/TIA Past Surgical History: none Pertinent Family History: none Social History: Denies: smoking, alcohol use, drug use Now: No Immunizations: UTD Reviewed Nursing Documentation: PMH: Agreed, PSxH: Agreed Nursing Documentation-PMH Hx Diabetes: Yes Hx Cancer: No Hx Cerebrovascular Accident: Yes - right side Hx Dementia: Yes Hx Peripheral Neuropathy: Yes Hx Memory Loss: Yes Hx Weakness: Yes Review of Systems All Other Systems: negative except mentioned in HPI Physical Exam Vital Signs Date Time Temp Pulse Resp B/P (MAP) Pulse Ox O2 Delivery O2 Flow Rate FiO2 06/16/17 15:46 98.4 76 16 155/74 100 Room Air Sp02 EP Interpretation: reviewed, normal General Appearance: no apparent distress, alert, GCS 15, non-toxic Head: normocephalic, atraumatic Eyes: bilateral eye normal inspection, bilateral eye PERRL ENT: hearing grossly normal, normal pharynx, no angioedema, normal voice Neck: full range of motion, supple/symm/no masses Respiratory: chest non-tender, lungs clear, normal breath sounds, speaking full sentences Cardiovascular #1: regular rate, rhythm, no edema Cardiovascular #2: 2+ carotid (R), 2+ carotid (L), 2+ radial (R), 2+ radial (L) , 2+ dorsalis pedis (R), 2+ dorsalis pedis (L) Gastrointestinal: normal bowel sounds, non tender, soft, non-distended, no guarding, no rebound Rectal: deferred Genitourinary: normal inspection, no CVA tenderness Musculoskeletal: back normal, gait/station normal, normal range of motion, non- tender Neurologic: alert, oriented x3, responsive, motor strength/tone normal, sensory intact, speech normal Psychiatric: judgement/insight normal, memory normal, mood/affect normal, no suicidal/homicidal ideation Reflexes: 3+ bicep (R), 3+ bicep (L), 3+ tricep (R), 3+ tricep (L), 3+ knee (R) , 3+ knee (L) Skin: normal color, no rash, warm/dry, well hydrated Lymphatic: no adenopathy Medical Decision Making Diagnostic Impression: Primary Impression: Hyperkalemia Additional Impressions: Renal insufficiency CHF (congestive heart failure) Qualified Codes: I50.9 - Heart failure, unspecified ER Course Hospital Course 76-year-old female referred to ED for elevated potassium Differential diagnoses include: IN/unstable angina, V. tach, bradycardia, hyperkalemia, fluid overload Clinical course Patient placed on stretcher. 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 After initial history and physical I ordered labs, EKG labs reviewed- potassium 5.7. BUN/Cr elevated. Hemoglobin/hematocrit normal. BNP > 4000 EKG - NSR, twave inversions in lateral leads interpreted by me CXR - pulmonary congestion, cardiomegaly. Given calcium, given insulin and D50. Case discussed with Dr. Solomon and he agreed to accept the patient to his service for further care and support I. I feel this is a highly complex case requiring extensive working including EKG/Rhythm strip, Xray/CT/US, Blood/urine lab work, repeat exams while in ED, and administration of strong opiates/narcotics for pain control, admission to hospital or close patient follow up. Diagnosis - hyperkalemia, renal insufficiency, CHF admitted to telemetry in serious condition Labs Test 06/16/17 17:55 06/16/17 18:21 White Blood Count 6.5 K/UL (4.8-10.8) Red Blood Count 3.85 M/UL (4.20-5.40) Hemoglobin 11.7 G/DL (12.0-16.0) Hematocrit 36.6 % (37.0-47.0) Mean Corpuscular Volume 95 FL (80-99) Mean Corpuscular Hemoglobin 30.3 PG (27.0-31.0) Mean Corpuscular Hemoglobin Concent 31.9 G/DL (32.0-36.0) Red Cell Distribution Width 12.2 % (11.6-14.8) Platelet Count 253 K/UL (150-450) Mean Platelet Volume 7.0 FL (6.5-10.1) Neutrophils (%) (Auto) 57.6 % (45.0-75.0) Lymphocytes (%) (Auto) 28.1 % (20.0-45.0) Monocytes (%) (Auto) 7.5 % (1.0-10.0) Eosinophils (%) (Auto) 6.0 % (0.0-3.0) Basophils (%) (Auto) 0.8 % (0.0-2.0) Sodium Level 139 mEQ/L (135-145) Potassium Level 5.7 mEQ/L (3.4-4.9) Chloride Level 102 mEQ/L (98-107) Carbon Dioxide Level 21 mEQ/L (20-30) Anion Gap 16 (5-15) Blood Urea Nitrogen 67 mg/dL (7-23) Creatinine 2.3 mg/dL (0.5-0.9) Estimat Glomerular Filtration Rate mL/min (>60) Glucose Level 217 mg/dL (74-106) Calcium Level 10.0 mg/dL (8.6-10.2) Total Bilirubin 0.4 mg/dL (0.0-1.2) Aspartate Amino Transf (AST/SGOT) 21 U/L (5-40) Alanine Aminotransferase (ALT/SGPT) 9 U/L (3-33) Alkaline Phosphatase 102 U/L (35-104) Total Creatine Kinase 160 U/L (26-140) Creatine Kinase MB 6.7 ng/mL (< 3.8) Creatine Kinase MB Relative Index 4.1 Troponin I < 0.30 ng/mL (<=0.30) Pro-B-Type Natriuretic Peptide 4684 pg/mL (0-450) Total Protein 8.3 g/dL (6.6-8.7) Albumin 4.5 g/dL (3.5-5.2) Globulin 3.8 g/dL Albumin/Globulin Ratio 1.1 (1.0-2.7) Urine Color Pale yellow Urine Appearance Cloudy Urine pH 6 (4.5-8.0) Urine Specific [place] 1.005 (1.005-1.035) Urine Protein 1+ (NEGATIVE) Urine Glucose (UA) Negative (NEGATIVE) Urine Ketones Negative (NEGATIVE) Urine Occult Blood 3+ (NEGATIVE) Urine Nitrite Negative (NEGATIVE) Urine Bilirubin Negative (NEGATIVE) Urine Urobilinogen Normal MG/DL (0.0-1.0) Urine Leukocyte Esterase 3+ (NEGATIVE) Urine RBC 10-15 /HPF (0 - 2) Urine WBC 2-4 /HPF (0 - 2) Urine Squamous Epithelial Cells Few /LPF (NONE/OCC) Urine Bacteria Many /HPF (NONE) EKG Diagnostic Results Rate: normal Rhythm: NSR ST Segments: other - twave inversions in lateral leads ASA given to the pt in ED: No Rhythm Strip Diag. Results EP Interpretation: yes Rhythm: NSR, no PVC's, no ectopy Chest X-Ray Diagnostic Results Chest X-Ray Diagnostic Results : Chest X-Ray Ordered: Yes # of Views/Limited/Complete: 1 View Indication: Chest Pain EP Interpretation: Yes Interpretation: no consolidation, no pneumothorax, no acute cardiopulmonary disease, other - cardiomegaly. sternotomy wires. pulmonary congestion Impression: Other - pulmonary congestion Electronically Signed by: Electronically signed by Yonas Lam MD Last Vital Signs Date Time Temp Pulse Resp B/P (MAP) Pulse Ox O2 Delivery O2 Flow Rate FiO2 06/16/17 19:13 98.4 86 16 148/67 100 Room Air Status: improved Disposition: ADMITTED INPATIENT Condition: Serious Referrals: JUAN LUIS SOLOMON (PCP) YONAS LAM M.D. Jun 16, 2017 19:25
[2017-06-16] MEDS ORDERED: Calcium Gluconate 1gm/10ml vial IVP ONE (19:30)
[2017-06-16] MEDS ORDERED: Morphine Sulfate 2mg/ml Inj SUBQ PRN (22:30)
[2017-06-16] MEDS ORDERED: Morphine Sulfate 2mg/ml Inj IVP PRN (22:30)
[2017-06-16] MEDS ORDERED: Zolpidem 5mg tab ORAL PRN (22:30)
[2017-06-16] MEDS ORDERED: Mylanta II UD 30ml ORAL PRN (22:30)
[2017-06-16] MEDS ORDERED: Miralax 17gm pkt ORAL PRN (22:30)
[2017-06-16] MEDS ORDERED: Albuterol/Ipratropium 3ml neb HHN PRN (22:30)
[2017-06-17] MEDS: NovoLOG Insulin Flexpen SUBQ SCH ×4 (06:05→20:04)
[2017-06-17 07:16] LABS: BASOPHILS % (AUTO) 0.8 % (0.0-2.0); EOSINOPHILS % (AUTO) 8.4 % (0.0-3.0); LYMPHOCYTES % (AUTO) 37.5 % (20.0-45.0); MEAN CORPUSCULAR HEMOGLOBIN 30.5 PG (27.0-31.0); MEAN CORPUSCULAR HGB CONC 31.8 G/DL (32.0-36.0); MEAN CORPUSCULAR VOLUME 96 FL (80-99); MEAN PLATELET VOLUME 6.8 FL (6.5-10.1); MONOCYTES % (AUTO) 7.1 % (1.0-10.0); NEUTROPHILS % (AUTO) 46.1 % (45.0-75.0); PLATELET COUNT 226 K/UL (150-450); RED BLOOD COUNT 3.34 M/UL (4.20-5.40); RED CELL DISTRIBUTION WIDTH 12.5 % (11.6-14.8); WHITE BLOOD COUNT 4.4 K/UL (4.8-10.8)
[2017-06-17 07:36] LABS: ALANINE AMINOTRANSFERASE 6 U/L (3-33); ALBUMIN/GLOBULIN RATIO 1.2 (1.0-2.7); ANION GAP 14 (5-15); ASPARTATE AMINO TRANSFERASE 17 U/L (5-40); CALCIUM 9.3 mg/dL (8.6-10.2); CARBON DIOXIDE 21 mEQ/L (20-30); CHLORIDE 108 mEQ/L (98-107); CHOLESTEROL 112 mg/dL (< 200); CHOLESTEROL/HDL RATIO 2.4 (3.3-4.4); HEMOLYSIS 6; LDL CHOLESTEROL CALC 44 mg/dL (60-99); POTASSIUM 5.1 mEQ/L (3.4-4.9); SODIUM 143 mEQ/L (135-145); TOTAL PROTEIN 6.6 g/dL (6.6-8.7)
[2017-06-17 07:56] LABS: HEMOGLOBIN A1C 8.5 % (< 6.0)
[2017-06-17 08:12] LABS: URIC ACID 7.3 mg/dL (3.0-7.5)
[2017-06-17] MEDS ORDERED: Sodium Polystyrene Sulfonate 15gm Powder ORAL SCH (09:00)
[2017-06-17 09:07] VITALS: BP 147/75
[2017-06-17] MEDS: Carvedilol 6.25mg Tab ORAL SCH ×2 (09:17→19:59)
[2017-06-17] MEDS: Heparin 5000 units/ml inj SUBQ SCH ×2 (09:17→20:00)
--- NOTE | 2017-06-17 09:54 | Diagnostic Imaging Report ---
Indication: Chest pain Technique: One view of the chest Comparison: 03/29/2017 Findings: Suboptimal inspiration. There is crowding of the bronchovascular markings. There are questionably mild interstitial congestive changes Previously demonstrated endotracheal and nasogastric tubes are no longer evident. The left hemidiaphragm is somewhat obscured, may indicate atelectasis or hazy consolidation and/or small left pleural effusion. Evidence of prior CABG. Borderline cardiomegaly Impression: Hypoventilatory exam Equivocal mild interstitial congestive changes Hazy left lung base, may indicate atelectasis or consolidation and/or pleural fluid Borderline cardiomegaly
--- NOTE | 2017-06-17 12:16 | History and Physical ---
History of Present Illness General Date patient seen: Jun 16, 2017 Reason for Hospitalization: Abnormal Labs Present Illness HPI 76-year-old female with PMHx of CVA, CAD, Dementia, DM shelter resident, brought in for evaluation of generalize weakness, abnormal labs with dehydration and not eating. History is limited. Pt was found to have renal failure and hyperkalemia and admitted for further evaluation. Allergies: Coded Allergies: NO KNOWN DRUG ALLERGIES (Verified Allergy, Unknown, 09/26/15) Medication History Scheduled Amlodipine Besylate (Norvasc), 2.5 MG ORAL DAILY Amlodipine Besylate (Norvasc), 2.5 MG ORAL DAILY, (Reported) Amlodipine Besylate (Norvasc), 2.5 MG ORAL DAILY, (Reported) Apixaban (Eliquis), 2.5 MG PO BID, (Reported) Ascorbic Acid* (Vitamin C*), 250 MG ORAL DAILY, (Reported) Ascorbic Acid* (Vitamin C*), 250 MG ORAL DAILY, (Reported) Ascorbic Acid* (Vitamin C*), 250 MG ORAL TWICE A DAY, (Reported) Atorvastatin Calcium* (Atorvastatin Calcium*), 20 MG ORAL BEDTIME, (Reported) Atorvastatin Calcium* (Atorvastatin Calcium*), 80 MG ORAL BEDTIME, (Reported) Bumetanide* (Bumetanide*), 1 MG ORAL BID, (Reported) Carvedilol (Coreg), 25 MG ORAL EVERY 12 HOURS Carvedilol (Coreg), 6.25 MG ORAL EVERY 12 HOURS, (Reported) Carvedilol* (Carvedilol*), 12.5 MG ORAL EVERY 12 HOURS, (Reported) Ceftriaxone Sod (Ceftriaxone 1 gm-D5w Bag), 1 GM IVPB DAILY Docusate Sodium* (Docusate Sodium*), 100 MG ORAL TWICE A DAY, (Reported) Ferrous Sulfate* (Ferrous Sulfate*), 325 MG ORAL DAILY, (Reported) Insulin Detemir (Levemir Flexpen), 15 UNITS SUBQ Q24H Insulin Detemir (Levemir), 0 SUBQ BEDTIME, (Reported) Insulin Glargine (Lantus), 20 SUBQ BEDTIME, (Reported) Insulin Glargine (Lantus), 0 SUBQ BEDTIME, (Reported) Insulin Regular, Human* (Novolin R*), 0 SUBQ .SLIDING SCALE, (Reported) Multivitamin With Minerals (Multivitamins With Minerals*), 1 TAB ORAL DAILY, ( Reported) Pantoprazole* (Protonix*), 40 MG ORAL DAILY, (Reported) Ranitidine Hcl* (Zantac*), 150 MG ORAL TWICE A DAY Ranitidine Hcl* (Zantac*), 150 MG ORAL DAILY, (Reported) Risperidone* (Risperdal*), 1 MG ORAL BEDTIME Sennosides (Senna), 8.6 MG PO DAILY, (Reported) Vitamin D (Vitamin D3), 400 UNITS ORAL DAILY, (Reported) Warfarin Sod* (Coumadin*), 1.5 MG ORAL DAILY, (Reported) Warfarin Sod* (Coumadin*), 2.5 MG ORAL DAILY Warfarin Sod* (Coumadin*), 2 MG ORAL DAILY, (Reported) Scheduled PRN Acetaminophen (Acetaminophen 8 Hour), 650 MG ORAL Q6H PRN for Pain Scale (3-5), (Reported) Hydralazine HCl (Hydralazine HCl), 10 MG ORAL Q6H PRN for SBP above 160 Hydrocodone Bit/Acetaminophen 5-325* ([place] 5-325*), 1 TAB ORAL Q4H PRN for For Pain Hydrocodone Bit/Acetaminophen 5-325* ([place] 5-325*), 1 TAB ORAL Q4H PRN for For Pain, (Reported) Morphine Sulfate* (Morphine Sulfate*), 2 MG SUBQ EVERY 6 HOURS PRN Nitroglycerin (Nitroglycerin), 0.4 MG SL every 5mins PRN for For Pain, (Reported ) Polyethylene Glycol 3350* (Miralax*), 17 GM ORAL HSPRN PRN for Constipation Sennosides (Senna), 8.6 MG PO PRN PRN for Constipation, (Reported) [Warfarin RX monitoring], 1 EA MISC DAILY PRN for Per rx protocol Miscellaneous Medications Insulin Aspart (Novolog Flexpen), (Reported) Lactulose (Lactulose*), 30 ML ORAL, (Reported) Lactulose (Lactulose*), 30 ML ORAL, (Reported) Nitroglycerin (Nitroglycerin), 0.4 MG SL, (Reported) Patient History Healthcare decision maker Resuscitation status Chemical (Meds Only) Advanced Directive on File No Past Medical/Surgical History Past Medical/Surgical History: (1) half-way resident (2) Renal insufficiency (3) Diabetes mellitus (4) HTN (hypertension) (5) Vascular dementia Review of Systems All Other Systems: negative except mentioned in HPI Physical Exam General Appearance: WD/WN, no apparent distress Lines, tubes and drains: peripheral, central line HEENT: normocephalic, anicteric Neck: non-tender, normal alignment Respiratory/Chest: chest wall non-tender, lungs clear Cardiovascular/Chest: normal peripheral pulses, normal rate Abdomen: normal bowel sounds, non tender Extremities: normal range of motion, non-tender Skin Exam: normal pigmentation 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 Last 24 Hour Vital Signs Date Time Temp Pulse Resp B/P (MAP) Pulse Ox O2 Delivery O2 Flow Rate FiO2 06/17/17 09:17 84 147/75 06/17/17 09:17 84 147/75 06/17/17 09:07 97.9 84 16 147/75 99 Room Air 06/17/17 08:00 76 06/17/17 03:58 75 06/16/17 23:12 97.2 85 18 155/62 97 Room Air 06/16/17 21:55 97.2 83 18 123/42 97 Room Air 06/16/17 21:38 98.4 86 16 148/67 100 Room Air 06/16/17 19:13 98.4 86 16 148/67 100 Room Air 06/16/17 19:00 92 20 148/67 98 Room Air 06/16/17 18:00 88 15 180/105 100 Room Air 06/16/17 17:00 83 20 160/95 100 Room Air 06/16/17 15:55 98.6 81 16 156/68 100 Room Air 06/16/17 15:46 98.4 76 16 155/74 100 Room Air Intake and Output 06/17/17 06/18/17 19:00 07:00 # Bowel Movements 1 Laboratory Tests Test 06/16/17 17:55 06/16/17 18:21 06/17/17 06:40 White Blood Count 6.5 K/UL (4.8-10.8) 4.4 K/UL (4.8-10.8) L Red Blood Count 3.85 M/UL (4.20-5.40) L 3.34 M/UL (4.20-5.40) L Hemoglobin 11.7 G/DL (12.0-16.0) L 10.2 G/DL (12.0-16.0) L Hematocrit 36.6 % (37.0-47.0) L 32.0 % (37.0-47.0) L Mean Corpuscular Volume 95 FL (80-99) 96 FL (80-99) Mean Corpuscular Hemoglobin 30.3 PG (27.0-31.0) 30.5 PG (27.0-31.0) Mean Corpuscular Hemoglobin Concent 31.9 G/DL (32.0-36.0) L 31.8 G/DL (32.0-36.0) L Red Cell Distribution Width 12.2 % (11.6-14.8) 12.5 % (11.6-14.8) Platelet Count 253 K/UL (150-450) 226 K/UL (150-450) Mean Platelet Volume 7.0 FL (6.5-10.1) 6.8 FL (6.5-10.1) Neutrophils (%) (Auto) 57.6 % (45.0-75.0) 46.1 % (45.0-75.0) Lymphocytes (%) (Auto) 28.1 % (20.0-45.0) 37.5 % (20.0-45.0) Monocytes (%) (Auto) 7.5 % (1.0-10.0) 7.1 % (1.0-10.0) Eosinophils (%) (Auto) 6.0 % (0.0-3.0) H 8.4 % (0.0-3.0) H Basophils (%) (Auto) 0.8 % (0.0-2.0) 0.8 % (0.0-2.0) Sodium Level 139 mEQ/L (135-145) 143 mEQ/L (135-145) Potassium Level 5.7 mEQ/L (3.4-4.9) H 5.1 mEQ/L (3.4-4.9) H Chloride Level 102 mEQ/L (98-107) 108 mEQ/L (98-107) H Carbon Dioxide Level 21 mEQ/L (20-30) 21 mEQ/L (20-30) Anion Gap 16 (5-15) H 14 (5-15) Blood Urea Nitrogen 67 mg/dL (7-23) H 56 mg/dL (7-23) H Creatinine 2.3 mg/dL (0.5-0.9) H 2.0 mg/dL (0.5-0.9) H Estimat Glomerular Filtration Rate mL/min (>60) mL/min (>60) Glucose Level 217 mg/dL (74-106) H 201 mg/dL (74-106) H Calcium Level 10.0 mg/dL (8.6-10.2) 9.3 mg/dL (8.6-10.2) Total Bilirubin 0.4 mg/dL (0.0-1.2) 0.4 mg/dL (0.0-1.2) Aspartate Amino Transf (AST/SGOT) 21 U/L (5-40) 17 U/L (5-40) Alanine Aminotransferase (ALT/SGPT) 9 U/L (3-33) 6 U/L (3-33) Alkaline Phosphatase 102 U/L (35-104) 81 U/L (35-104) Total Creatine Kinase 160 U/L (26-140) H 128 U/L (26-140) Creatine Kinase MB 6.7 ng/mL (< 3.8) H Creatine Kinase MB Relative Index 4.1 Troponin I < 0.30 ng/mL (<=0.30) Pro-B-Type Natriuretic Peptide 4684 pg/mL (0-450) H Total Protein 8.3 g/dL (6.6-8.7) 6.6 g/dL (6.6-8.7) Albumin 4.5 g/dL (3.5-5.2) 3.6 g/dL (3.5-5.2) Globulin 3.8 g/dL 3.0 g/dL Albumin/Globulin Ratio 1.1 (1.0-2.7) 1.2 (1.0-2.7) Urine Color Pale yellow Urine Appearance Cloudy Urine pH 6 (4.5-8.0) Urine Specific [place] 1.005 (1.005-1.035) Urine Protein 1+ (NEGATIVE) H Urine Glucose (UA) Negative (NEGATIVE) Urine Ketones Negative (NEGATIVE) Urine Occult Blood 3+ (NEGATIVE) H Urine Nitrite Negative (NEGATIVE) Urine Bilirubin Negative (NEGATIVE) Urine Urobilinogen Normal MG/DL (0.0-1.0) Urine Leukocyte Esterase 3+ (NEGATIVE) H Urine RBC 10-15 /HPF (0 - 2) H Urine WBC 2-4 /HPF (0 - 2) Urine Squamous Epithelial Cells Few /LPF (NONE/OCC) Urine Bacteria Many /HPF (NONE) H Hemoglobin A1c 8.5 % (< 6.0) H Uric Acid 7.3 mg/dL (3.0-7.5) Triglycerides Level 109 mg/dL (< 150) Cholesterol Level 112 mg/dL (< 200) LDL Cholesterol 44 mg/dL (60-99) L HDL Cholesterol 46 mg/dL (> 60) Cholesterol/HDL Ratio 2.4 (3.3-4.4) L Thyroid Stimulating Hormone (TSH) 0.480 uIU/mL (0.300-4.500) Height (Feet): 5 Height (Inches): 2.00 Weight (Pounds): 136 Medications Current Medications Medications (Trade) Dose Ordered Sig/Asha Route PRN Reason Start Time Stop Time Status Last Admin Dose Admin Acetaminophen (Tylenol) 650 mg Q4H PRN ORAL fever 06/16/17 22:30 07/16/17 22:29 Al Hydroxide/Mg Hydroxide (Mylanta II) 30 ml Q6H PRN ORAL dyspepsia 06/16/17 22:30 07/16/17 22:29 Albuterol/ Ipratropium (DuoNeb 0.5-3(2.5)mg/3ml) 3 ml Q6H PRN HHN dyspnea 06/16/17 22:30 06/21/17 22:29 Amlodipine Besylate (Norvasc) 2.5 mg DAILY ORAL 06/17/17 09:00 07/17/17 08:59 06/17/17 09:17 Carvedilol (Coreg) 6.25 mg EVERY 12 HOURS ORAL 06/17/17 09:00 07/17/17 08:59 06/17/17 09:17 Clonidine HCl (Catapres) 0.1 mg Q4H PRN ORAL For High Blood Pressure 06/16/17 22:30 07/16/17 22:29 Dextrose (Dextrose 50%) STAT PRN IV Hypoglycemia 06/16/17 22:30 07/16/17 22:29 Heparin Sodium (Porcine) (Heparin 5000 units/ml) 5,000 units EVERY 12 HOURS SUBQ 06/17/17 09:00 07/17/17 08:59 06/17/17 09:17 Insulin Aspart (NovoLOG) BEFORE MEALS AND HS SUBQ 06/17/17 06:30 07/17/17 06:29 06/17/17 06:05 Morphine Sulfate (Morphine Sulfate) 1 mg EVERY 4 HOURS PRN IVP For Pain 06/16/17 22:30 06/23/17 22:29 Morphine Sulfate (Morphine Sulfate) 2 mg Q6H PRN SUBQ pain 7-10 06/16/17 22:30 06/23/17 22:29 Ondansetron HCl (Zofran) 4 mg Q6H PRN IVP Nausea & Vomiting 06/16/17 22:30 07/16/17 22:29 Polyethylene Glycol (Miralax) 17 gm HSPRN PRN ORAL Constipation 06/16/17 22:30 07/16/17 22:29 Sodium Polystyrene Sulfonate (Kayexalate) 45 gm DAILY ORAL 06/17/17 09:00 06/20/17 08:59 Future Hold Sodium Chloride 1,000 ml @ 75 mls/hr [id number] ONCE IV 06/17/17 01:30 06/17/17 14:49 06/17/17 01:22 Zolpidem Tartrate (Ambien) 5 mg HSPRN PRN ORAL Insomnia 06/16/17 22:30 06/23/17 22:29 Assessment/Plan Problem List: (1) Hyperkalemia ICD Codes: E87.5 - Hyperkalemia SNOMED: 05009198 (2) Acute on chronic kidney failure ICD Codes: N17.9 - Acute kidney failure, unspecified; N18.9 - Chronic kidney disease, unspecified SNOMED: 022460685 (3) Diabetes mellitus ICD Codes: E11.9 - Type 2 diabetes mellitus without complications SNOMED: 22635016 (4) Vascular dementia ICD Codes: F01.50 - Vascular dementia without behavioral disturbance SNOMED: 835856809 (5) History of CVA (cerebrovascular accident) ICD Codes: Z86.73 - Personal history of transient ischemic attack (TIA), and cerebral infarction without residual deficits SNOMED: 808871392 (6) HTN (hypertension) ICD Codes: I10 - Essential (primary) hypertension SNOMED: 95264222 Assessment/Plan IV fluids check electrolytes renal studies cardiac and renal evalution check electrolytes sliding scale JUAN LUIS ASHLEY Jun 17, 2017 12:16
--- NOTE | 2017-06-17 12:18 | Pulmonology Progress Note ---
Assessment/Plan Problems: (1) Hyperkalemia (2) Acute on chronic kidney failure (3) Diabetes mellitus (4) Vascular dementia (5) History of CVA (cerebrovascular accident) (6) HTN (hypertension) Assessment/Plan improving IV fluids check electrolytes renal studies cardiac and renal evalution check electrolytes sliding scale keep in teli Subjective ROS Limited/Unobtainable: No Constitutional: Reports: no symptoms HEENT: Repors: no symptoms Respiratory: Reports: no symptoms Allergies: Coded Allergies: NO KNOWN DRUG ALLERGIES (Verified Allergy, Unknown, 09/26/15) Objective Last 24 Hour Vital Signs Date Time Temp Pulse Resp B/P (MAP) Pulse Ox O2 Delivery O2 Flow Rate FiO2 06/17/17 09:17 84 147/75 06/17/17 09:17 84 147/75 06/17/17 09:07 97.9 84 16 147/75 99 Room Air 06/17/17 08:00 76 06/17/17 03:58 75 06/16/17 23:12 97.2 85 18 155/62 97 Room Air 06/16/17 21:55 97.2 83 18 123/42 97 Room Air 06/16/17 21:38 98.4 86 16 148/67 100 Room Air 06/16/17 19:13 98.4 86 16 148/67 100 Room Air 06/16/17 19:00 92 20 148/67 98 Room Air 06/16/17 18:00 88 15 180/105 100 Room Air 06/16/17 17:00 83 20 160/95 100 Room Air 06/16/17 15:55 98.6 81 16 156/68 100 Room Air 06/16/17 15:46 98.4 76 16 155/74 100 Room Air Intake and Output 06/17/17 06/18/17 19:00 07:00 # Bowel Movements 1 General Appearance: WD/WN HEENT: normocephalic, atraumatic Respiratory/Chest: chest wall non-tender, lungs clear Breasts: no masses Cardiovascular: normal peripheral pulses Abdomen: normal bowel sounds, soft, non tender Genitourinary: normal external genitalia Extremities: no clubbing 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 Laboratory Tests 06/16/17 17:55: White Blood Count 6.5, Red Blood Count 3.85L, Hemoglobin 11.7L, Hematocrit 36.6L , Mean Corpuscular Volume 95, Mean Corpuscular Hemoglobin 30.3, Mean Corpuscular Hemoglobin Concent 31.9L, Red Cell Distribution Width 12.2, Platelet Count 253, Mean Platelet Volume 7.0, Neutrophils (%) (Auto) 57.6, Lymphocytes (%) (Auto) 28.1, Monocytes (%) (Auto) 7.5, Eosinophils (%) (Auto) 6.0H, Basophils (%) (Auto) 0.8, Sodium Level 139, Potassium Level 5.7H, Chloride Level 102, Carbon Dioxide Level 21, Anion Gap 16H, Blood Urea Nitrogen 67H, Creatinine 2.3H, Estimat Glomerular Filtration Rate , Glucose Level 217H, Calcium Level 10.0, Total Bilirubin 0.4, Aspartate Amino Transf (AST/SGOT) 21, Alanine Aminotransferase (ALT/SGPT) 9, Alkaline Phosphatase 102, Total Creatine Kinase 160H, Creatine Kinase MB 6.7H, Creatine Kinase MB Relative Index 4.1, Troponin I < 0.30, Pro-B-Type Natriuretic Peptide 4684H, Total Protein 8.3, Albumin 4.5, Globulin 3.8, Albumin/Globulin Ratio 1.1 06/16/17 18:21: Urine Color Pale yellow, Urine Appearance Cloudy, Urine pH 6, Urine Specific [place] 1.005, Urine Protein 1+H, Urine Glucose (UA) Negative, Urine Ketones Negative, Urine Occult Blood 3+H, Urine Nitrite Negative, Urine Bilirubin Negative, Urine Urobilinogen Normal, Urine Leukocyte Esterase 3+H, Urine RBC 10- 15H, Urine WBC 2-4, Urine Squamous Epithelial Cells Few, Urine Bacteria ManyH 06/17/17 06:40: White Blood Count 4.4L, Red Blood Count 3.34L, Hemoglobin 10.2L, Hematocrit 32.0L, Mean Corpuscular Volume 96, Mean Corpuscular Hemoglobin 30.5, Mean Corpuscular Hemoglobin Concent 31.8L, Red Cell Distribution Width 12.5, Platelet Count 226, Mean Platelet Volume 6.8, Neutrophils (%) (Auto) 46.1, Lymphocytes (%) (Auto) 37.5, Monocytes (%) (Auto) 7.1, Eosinophils (%) (Auto) 8.4H, Basophils (%) (Auto) 0.8, Sodium Level 143, Potassium Level 5.1H, Chloride Level 108H, Carbon Dioxide Level 21, Anion Gap 14, Blood Urea Nitrogen 56H, Creatinine 2.0H, Estimat Glomerular Filtration Rate , Glucose Level 201H, Calcium Level 9.3, Total Bilirubin 0.4, Aspartate Amino Transf (AST/SGOT) 17, Alanine Aminotransferase (ALT/SGPT) 6, Alkaline Phosphatase 81, Total Creatine Kinase 128, Total Protein 6.6, Albumin 3.6, Globulin 3.0, Albumin/Globulin Ratio 1.2, Hemoglobin A1c 8.5H, Uric Acid 7.3, Triglycerides Level 109, Cholesterol Level 112, LDL Cholesterol 44L, HDL Cholesterol 46, Cholesterol/HDL Ratio 2.4L, Thyroid Stimulating Hormone (TSH) 0.480 Current Medications Medications (Trade) Dose Ordered Sig/Asha Route PRN Reason Start Time Stop Time Status Last Admin Dose Admin Acetaminophen (Tylenol) 650 mg Q4H PRN ORAL fever 06/16/17 22:30 07/16/17 22:29 Al Hydroxide/Mg Hydroxide (Mylanta II) 30 ml Q6H PRN ORAL dyspepsia 06/16/17 22:30 07/16/17 22:29 Albuterol/ Ipratropium (DuoNeb 0.5-3(2.5)mg/3ml) 3 ml Q6H PRN HHN dyspnea 06/16/17 22:30 06/21/17 22:29 Amlodipine Besylate (Norvasc) 2.5 mg DAILY ORAL 06/17/17 09:00 07/17/17 08:59 06/17/17 09:17 Carvedilol (Coreg) 6.25 mg EVERY 12 HOURS ORAL 06/17/17 09:00 07/17/17 08:59 06/17/17 09:17 Clonidine HCl (Catapres) 0.1 mg Q4H PRN ORAL For High Blood Pressure 06/16/17 22:30 07/16/17 22:29 Dextrose (Dextrose 50%) STAT PRN IV Hypoglycemia 06/16/17 22:30 07/16/17 22:29 Heparin Sodium (Porcine) (Heparin 5000 units/ml) 5,000 units EVERY 12 HOURS SUBQ 06/17/17 09:00 07/17/17 08:59 06/17/17 09:17 Insulin Aspart (NovoLOG) BEFORE MEALS AND HS SUBQ 06/17/17 06:30 07/17/17 06:29 06/17/17 06:05 Morphine Sulfate (Morphine Sulfate) 1 mg EVERY 4 HOURS PRN IVP For Pain 06/16/17 22:30 06/23/17 22:29 Morphine Sulfate (Morphine Sulfate) 2 mg Q6H PRN SUBQ pain 7-10 06/16/17 22:30 06/23/17 22:29 Ondansetron HCl (Zofran) 4 mg Q6H PRN IVP Nausea & Vomiting 06/16/17 22:30 07/16/17 22:29 Polyethylene Glycol (Miralax) 17 gm HSPRN PRN ORAL Constipation 06/16/17 22:30 07/16/17 22:29 Sodium Polystyrene Sulfonate (Kayexalate) 45 gm DAILY ORAL 06/17/17 09:00 06/20/17 08:59 Future Hold Sodium Chloride 1,000 ml @ 75 mls/hr [id number] ONCE IV 06/17/17 01:30 06/17/17 14:49 06/17/17 01:22 Zolpidem Tartrate (Ambien) 5 mg HSPRN PRN ORAL Insomnia 06/16/17 22:30 06/23/17 22:29 JUAN LUIS ASHLEY Jun 17, 2017 12:18
[2017-06-17 12:39] VITALS: BP 149/64
--- NOTE | 2017-06-17 13:12 | Diagnostic Imaging Report ---
Indication: Abnormal renal function tests Technique: Grayscale and duplex images of the kidneys, retroperitoneum, and bladder were obtained. Comparison:01/14/2017 Findings: Right kidney measures 9.7 cm in length. Left kidney measures 9 cm in length. Both kidneys demonstrate normal echogenicity. No hydronephrosis. Small degenerative foci seen in the renal sinuses bilaterally, measuring up to 8 mm diameter on the left. Left kidney demonstrates somewhat irregular border. Normal inferior vena cava. Bladder is normal. Previously demonstrated bladder wall thickening is no longer evident. Previously demonstrated Garcia catheter is no longer evident. The bilateral renal echogenic foci were demonstrated previously. Impression: Bilateral renal calcifications. Note that on prior CT scan of the abdomen pelvis dated 01/31/2016 posterior calcifications appear to be arterial in nature, although calyceal calculi are possibility. Negative for hydronephrosis Previously demonstrated Garcia catheter is no longer present and previously demonstrated bladder wall thickening has resolved
[2017-06-17 15:11] LABS: APPEARANCE,URINE CLEAR; KETONES,URINE NEGATIVE (NEGATIVE); LEUKOCYTE ESTERASE ,URINE 3+ (NEGATIVE); NITRITE,URINE NEGATIVE (NEGATIVE); PH,URINE 6 (4.5-8.0); PROTEIN,URINE 2+ (NEGATIVE); UROBILINOGEN,URINE NORMAL MG/DL (0.0-1.0)
[2017-06-17 15:20] LABS: BACTERIA,URINE FEW /HPF; RBC,URINE 0-2 /HPF (0 - 2); SQUAMOUS EPITHELIAL CELL,UR OCCASIONAL /LPF (NONE/OCC)
[2017-06-17 16:19] VITALS: BP 147/72
[2017-06-17 20:00] VITALS: BP 147/70
--- NOTE | 2017-06-17 20:17 | Cardiology Progress Note ---
Assessment/Plan Assessment/Plan repeat trop adn ekg in am as well as echo previosus equivocal normal perfusion may need to be repated in light of new st change in 1, avl [id number] Objective Last 24 Hour Vital Signs Date Time Temp Pulse Resp B/P (MAP) Pulse Ox O2 Delivery O2 Flow Rate FiO2 06/17/17 19:59 86 147/70 06/17/17 16:19 98.1 82 18 147/72 97 Room Air 06/17/17 16:00 80 06/17/17 12:39 97.9 84 18 149/64 98 Room Air 06/17/17 12:00 85 06/17/17 09:17 84 147/75 06/17/17 09:17 84 147/75 06/17/17 09:07 97.9 84 16 147/75 99 Room Air 06/17/17 08:00 76 06/17/17 03:58 75 06/16/17 23:12 97.2 85 18 155/62 97 Room Air 06/16/17 21:55 97.2 83 18 123/42 97 Room Air 06/16/17 21:38 98.4 86 16 148/67 100 Room Air Intake and Output 06/17/17 06/18/17 19:00 07:00 Intake Total 615 ml Output Total 500 ml Balance 115 ml Intake Oral 240 ml IV Total 375 ml Output Urine Total 500 ml # Voids 4 # Bowel Movements 1 Laboratory Tests Test 06/17/17 06:40 06/17/17 13:50 White Blood Count 4.4 K/UL (4.8-10.8) L Red Blood Count 3.34 M/UL (4.20-5.40) L Hemoglobin 10.2 G/DL (12.0-16.0) L Hematocrit 32.0 % (37.0-47.0) L Mean Corpuscular Volume 96 FL (80-99) Mean Corpuscular Hemoglobin 30.5 PG (27.0-31.0) Mean Corpuscular Hemoglobin Concent 31.8 G/DL (32.0-36.0) L Red Cell Distribution Width 12.5 % (11.6-14.8) Platelet Count 226 K/UL (150-450) Mean Platelet Volume 6.8 FL (6.5-10.1) Neutrophils (%) (Auto) 46.1 % (45.0-75.0) Lymphocytes (%) (Auto) 37.5 % (20.0-45.0) Monocytes (%) (Auto) 7.1 % (1.0-10.0) Eosinophils (%) (Auto) 8.4 % (0.0-3.0) H Basophils (%) (Auto) 0.8 % (0.0-2.0) Sodium Level 143 mEQ/L (135-145) Potassium Level 5.1 mEQ/L (3.4-4.9) H Chloride Level 108 mEQ/L (98-107) H Carbon Dioxide Level 21 mEQ/L (20-30) Anion Gap 14 (5-15) Blood Urea Nitrogen 56 mg/dL (7-23) H Creatinine 2.0 mg/dL (0.5-0.9) H Estimat Glomerular Filtration Rate mL/min (>60) Glucose Level 201 mg/dL (74-106) H Hemoglobin A1c 8.5 % (< 6.0) H Uric Acid 7.3 mg/dL (3.0-7.5) Calcium Level 9.3 mg/dL (8.6-10.2) Total Bilirubin 0.4 mg/dL (0.0-1.2) Aspartate Amino Transf (AST/SGOT) 17 U/L (5-40) Alanine Aminotransferase (ALT/SGPT) 6 U/L (3-33) Alkaline Phosphatase 81 U/L (35-104) Total Creatine Kinase 128 U/L (26-140) Total Protein 6.6 g/dL (6.6-8.7) Albumin 3.6 g/dL (3.5-5.2) Globulin 3.0 g/dL Albumin/Globulin Ratio 1.2 (1.0-2.7) Triglycerides Level 109 mg/dL (< 150) Cholesterol Level 112 mg/dL (< 200) LDL Cholesterol 44 mg/dL (60-99) L HDL Cholesterol 46 mg/dL (> 60) Cholesterol/HDL Ratio 2.4 (3.3-4.4) L Thyroid Stimulating Hormone (TSH) 0.480 uIU/mL (0.300-4.500) Urine Color Pale yellow Urine Appearance Clear Urine pH 6 (4.5-8.0) Urine Specific [place] 1.005 (1.005-1.035) Urine Protein 2+ (NEGATIVE) H Urine Glucose (UA) 1+ (NEGATIVE) H Urine Ketones Negative (NEGATIVE) Urine Occult Blood Negative (NEGATIVE) Urine Nitrite Negative (NEGATIVE) Urine Bilirubin Negative (NEGATIVE) Urine Urobilinogen Normal MG/DL (0.0-1.0) Urine Leukocyte Esterase 3+ (NEGATIVE) H Urine RBC 0-2 /HPF (0 - 2) Urine WBC 2-4 /HPF (0 - 2) Urine Squamous Epithelial Cells Occasional /LPF Urine Bacteria Few /HPF (NONE) Urine Eosinophils None seen Urine Random Sodium 82 mmol/L Urine Potassium Timed 15 mmol/L JEFFERY BRADY Jun 17, 2017 20:17
[2017-06-18] VITALS: BP 91/72
[2017-06-18 04:00] VITALS: BP 142/61
[2017-06-18] MEDS: NovoLOG Insulin Flexpen SUBQ SCH ×4 (05:46→20:53)
[2017-06-18 07:35] LABS: BASOPHILS % (AUTO) 0.6 % (0.0-2.0); EOSINOPHILS % (AUTO) 7.3 % (0.0-3.0); LYMPHOCYTES % (AUTO) 38.2 % (20.0-45.0); MEAN CORPUSCULAR HEMOGLOBIN 31.2 PG (27.0-31.0); MEAN CORPUSCULAR HGB CONC 32.5 G/DL (32.0-36.0); MEAN CORPUSCULAR VOLUME 96 FL (80-99); MEAN PLATELET VOLUME 7.7 FL (6.5-10.1); MONOCYTES % (AUTO) 6.4 % (1.0-10.0); NEUTROPHILS % (AUTO) 47.6 % (45.0-75.0); PLATELET COUNT 237 K/UL (150-450); RED BLOOD COUNT 3.52 M/UL (4.20-5.40); RED CELL DISTRIBUTION WIDTH 12.4 % (11.6-14.8); WHITE BLOOD COUNT 4.2 K/UL (4.8-10.8)
[2017-06-18 07:38] LABS: ALANINE AMINOTRANSFERASE 7 U/L (3-33); ALBUMIN/GLOBULIN RATIO 1.2 (1.0-2.7); ANION GAP 12 (5-15); ASPARTATE AMINO TRANSFERASE < 5 U/L (5-40); CALCIUM 9.4 mg/dL (8.6-10.2); CARBON DIOXIDE 23 mEQ/L (20-30); CHLORIDE 110 mEQ/L (98-107); CREATININE 1.5 mg/dL (0.5-0.9); HEMOLYSIS 1; POTASSIUM 4.8 mEQ/L (3.4-4.9); SODIUM 145 mEQ/L (135-145); TOTAL PROTEIN 6.7 g/dL (6.6-8.7)
[2017-06-18 07:45] LABS: TROPONIN I < 0.30 ng/mL (<=0.30)
[2017-06-18 08:00] VITALS: BP 127/67
[2017-06-18] MEDS: Carvedilol 6.25mg Tab ORAL SCH ×2 (09:52→20:49)
[2017-06-18] MEDS: Heparin 5000 units/ml inj SUBQ SCH ×2 (09:53→20:52)
[2017-06-18] MEDS ORDERED: COREG6.25 MG ORAL (11:54)
--- NOTE | 2017-06-18 11:56 | Pulmonology Progress Note ---
Assessment/Plan Problems: (1) Hyperkalemia (2) Acute on chronic kidney failure (3) Diabetes mellitus (4) Vascular dementia (5) History of CVA (cerebrovascular accident) (6) HTN (hypertension) Assessment/Plan improving IV fluids check electrolytes renal studies cardiac and renal evalution check electrolytes sliding scale keep in teli med/surg dc to NH in am Subjective ROS Limited/Unobtainable: No Constitutional: Reports: no symptoms HEENT: Repors: no symptoms Respiratory: Reports: no symptoms Allergies: Coded Allergies: NO KNOWN DRUG ALLERGIES (Verified Allergy, Unknown, 09/26/15) Objective Last 24 Hour Vital Signs Date Time Temp Pulse Resp B/P (MAP) Pulse Ox O2 Delivery O2 Flow Rate FiO2 06/18/17 09:52 76 127/67 06/18/17 09:52 76 127/67 06/18/17 08:00 97.5 76 20 127/67 97 Room Air 06/18/17 04:00 97.5 75 20 142/61 95 Room Air 06/18/17 04:00 74 06/18/17 00:00 75 06/18/17 00:00 97.1 77 20 91/72 100 Room Air 06/17/17 20:00 76 06/17/17 20:00 98.1 86 21 147/70 98 Room Air 06/17/17 19:59 86 147/70 06/17/17 16:19 98.1 82 18 147/72 97 Room Air 06/17/17 16:00 80 06/17/17 12:39 97.9 84 18 149/64 98 Room Air 06/17/17 12:00 85 General Appearance: WD/WN HEENT: normocephalic, atraumatic Respiratory/Chest: chest wall non-tender, lungs clear Breasts: no masses Cardiovascular: normal peripheral pulses, normal rate Abdomen: normal bowel sounds, soft, non tender Neurologic/Psychiatric: fish smoker II-XII grossly normal, no motor/sensory deficits Lymphatic: no neck adenopathy Musculoskeletal: normal muscle bulk Microbiology Date/Time Source Procedure Growth Status 06/17/17 13:50 Urine,Clean Catch Urine Culture - Preliminary Resulted 06/16/17 18:21 Urine,Clean Catch Urine Culture - Preliminary Mixed Urogenital Contaminants Resulted Laboratory Tests 06/17/17 13:50: Urine Color Pale yellow, Urine Appearance Clear, Urine pH 6, Urine Specific [place] 1.005, Urine Protein 2+H, Urine Glucose (UA) 1+H, Urine Ketones Negative , Urine Occult Blood Negative, Urine Nitrite Negative, Urine Bilirubin Negative , Urine Urobilinogen Normal, Urine Leukocyte Esterase 3+H, Urine RBC 0-2, Urine WBC 2-4, Urine Squamous Epithelial Cells Occasional, Urine Bacteria Few, Urine Eosinophils None seen, Urine Random Sodium 82, Urine Potassium Timed 15 06/18/17 06:45: White Blood Count 4.2L, Red Blood Count 3.52L, Hemoglobin 11.0L, Hematocrit 33.7L, Mean Corpuscular Volume 96, Mean Corpuscular Hemoglobin 31.2H, Mean Corpuscular Hemoglobin Concent 32.5, Red Cell Distribution Width 12.4, Platelet Count 237, Mean Platelet Volume 7.7, Neutrophils (%) (Auto) 47.6, Lymphocytes (% ) (Auto) 38.2, Monocytes (%) (Auto) 6.4, Eosinophils (%) (Auto) 7.3H, Basophils (%) (Auto) 0.6, Sodium Level 145, Potassium Level 4.8, Chloride Level 110H, Carbon Dioxide Level 23, Anion Gap 12, Blood Urea Nitrogen 40H, Creatinine 1.5H , Estimat Glomerular Filtration Rate , Glucose Level 181H, Calcium Level 9.4, Total Bilirubin 0.3, Aspartate Amino Transf (AST/SGOT) < 5L, Alanine Aminotransferase (ALT/SGPT) 7, Alkaline Phosphatase 82, Troponin I < 0.30, Pro-B -Type Natriuretic Peptide 9128H, Total Protein 6.7, Albumin 3.7, Globulin 3.0, Albumin/Globulin Ratio 1.2 Current Medications Medications (Trade) Dose Ordered Sig/Asha Route PRN Reason Start Time Stop Time Status Last Admin Dose Admin Al Hydroxide/Mg Hydroxide (Mylanta II) 30 ml Q6H PRN ORAL dyspepsia 06/16/17 22:30 07/16/17 22:29 Albuterol/ Ipratropium (DuoNeb 0.5-3(2.5)mg/3ml) 3 ml Q6H PRN HHN dyspnea 06/16/17 22:30 06/21/17 22:29 Amlodipine Besylate (Norvasc) 2.5 mg DAILY ORAL 06/17/17 09:00 07/17/17 08:59 06/18/17 09:52 Carvedilol (Coreg) 6.25 mg EVERY 12 HOURS ORAL 06/17/17 09:00 07/17/17 08:59 06/18/17 09:52 Clonidine HCl (Catapres) 0.1 mg Q4H PRN ORAL For High Blood Pressure 06/16/17 22:30 07/16/17 22:29 Dextrose (Dextrose 50%) STAT PRN IV Hypoglycemia 06/16/17 22:30 07/16/17 22:29 Heparin Sodium (Porcine) (Heparin 5000 units/ml) 5,000 units EVERY 12 HOURS SUBQ 06/17/17 09:00 07/17/17 08:59 06/18/17 09:53 Insulin Aspart (NovoLOG) BEFORE MEALS AND HS SUBQ 06/17/17 06:30 07/17/17 06:29 06/18/17 05:46 Morphine Sulfate (Morphine Sulfate) 1 mg EVERY 4 HOURS PRN IVP For Pain 06/16/17 22:30 06/23/17 22:29 Morphine Sulfate (Morphine Sulfate) 2 mg Q6H PRN SUBQ pain 7-10 06/16/17 22:30 06/23/17 22:29 Ondansetron HCl (Zofran) 4 mg Q6H PRN IVP Nausea & Vomiting 06/16/17 22:30 07/16/17 22:29 Polyethylene Glycol (Miralax) 17 gm HSPRN PRN ORAL Constipation 06/16/17 22:30 07/16/17 22:29 Sodium Polystyrene Sulfonate (Kayexalate) 45 gm DAILY ORAL 06/17/17 09:00 06/20/17 08:59 Future hold Zolpidem Tartrate (Ambien) 5 mg HSPRN PRN ORAL Insomnia 06/16/17 22:30 06/23/17 22:29 JUAN LUIS ASHLEY Jun 18, 2017 11:56
[2017-06-18 12:00] VITALS: BP 134/68
--- NOTE | 2017-06-18 12:15 | Diagnostic Imaging Report ---
Indication: DYSPNEA Technique: One view of the chest Comparison: 06/16/2017 Findings: Bilateral perihilar atelectasis and or scarring is again demonstrated. Better inspiration currently. There may be some blunting of left costophrenic sulcus. The spaces are otherwise clear. The heart size is upper limits of normal. Aorta is tortuous and ectatic and calcified Impression: Improved aeration Bilateral perihilar atelectasis and/or scarring. No acute parenchymal process otherwise Possible small left pleural effusion
--- NOTE | 2017-06-18 12:19 | Cardiology Report ---
APPROVED REPORT EXAM: Two-dimensional and M-mode echocardiogram with Doppler and color Doppler. INDICATION CAD M-Mode DIMENSIONS IVSd0.9 (0.7-1.1cm)Left Atrium (MM)4.2 (1.6-4.0cm) LVDd5.4 (3.5-5.6cm)Aortic Root2.5 (2.0-3.7cm) PWd1.7 (0.7-1.1cm)Aortic Cusp Exc.1.6 (1.5-2.0cm) LVDs3.4 (2.5-4.0cm) PWs2.5 cm Technically difficult study due to poor acoustical windows. Normal left ventricular chamber size, systolic function and wall motion except mild hypokinesis of proximal manager of development wall and proximal septum . Left ventricular ejection fraction estimated to be 50-55%. No evidence of left ventricular hypertrophy. No evidence of pericardial or pleural effusion. Right cardiac chamber sizes are within normal limits. Mild left atrial enlargement by 2D. Focal aortic valve sclerosis with adequate cusp excursion. Thickened mitral valve leaflets with normal excursion. Mild mitral annulus and aortic root calcification. Pulmonic valve not well visualized. Normal tricuspid valve structure. IVC is normal in size and collapsible with respiration. A color flow and spectral Doppler study was performed and revealed: Trace aortic regurgitation. Moderate mitral regurgitation. Mitral diastolic velocities suggest reduced left ventricular relaxation c/w diastolic dysfunction grade 1. Trace tricuspid regurgitation. Tricuspid systolic velocities suggests peak right ventricular systolic pressure of 12mmHg
--- NOTE | 2017-06-18 13:08 | Cardiology Progress Note ---
Assessment/Plan Assessment/Plan chest pain cad s/p cabg dm htn vascuale dementia ekg some new some old st changes trop neg no longer has cp some swma ab on echo perfusion imaging with adenosine Subjective Cardiovascular: Denies: chest pain, lightheadedness Respiratory: Denies: SOB with excertion Gastrointestinal/Abdominal: Denies: abdominal pain Genitourinary: Denies: burning Subjective feel better no logn had cp Objective Last 24 Hour Vital Signs Date Time Temp Pulse Resp B/P (MAP) Pulse Ox O2 Delivery O2 Flow Rate FiO2 06/18/17 12:00 97.2 80 21 134/68 96 Room Air 06/18/17 09:52 76 127/67 06/18/17 09:52 76 127/67 06/18/17 08:00 75 06/18/17 08:00 97.5 76 20 127/67 97 Room Air 06/18/17 04:00 97.5 75 20 142/61 95 Room Air 06/18/17 04:00 74 06/18/17 00:00 75 06/18/17 00:00 97.1 77 20 91/72 100 Room Air 06/17/17 20:00 76 06/17/17 20:00 98.1 86 21 147/70 98 Room Air 06/17/17 19:59 86 147/70 06/17/17 16:19 98.1 82 18 147/72 97 Room Air 06/17/17 16:00 80 General Appearance: no apparent distress Neck: supple Cardiovascular: normal rate, regular rhythm, systolic murmur Respiratory/Chest: lungs clear, normal breath sounds Abdomen: normal bowel sounds, non tender, soft Extremities: no swelling Laboratory Tests Test 06/17/17 13:50 06/18/17 06:45 Urine Color Pale yellow Urine Appearance Clear Urine pH 6 (4.5-8.0) Urine Specific [place] 1.005 (1.005-1.035) Urine Protein 2+ (NEGATIVE) H Urine Glucose (UA) 1+ (NEGATIVE) H Urine Ketones Negative (NEGATIVE) Urine Occult Blood Negative (NEGATIVE) Urine Nitrite Negative (NEGATIVE) Urine Bilirubin Negative (NEGATIVE) Urine Urobilinogen Normal MG/DL (0.0-1.0) Urine Leukocyte Esterase 3+ (NEGATIVE) H Urine RBC 0-2 /HPF (0 - 2) Urine WBC 2-4 /HPF (0 - 2) Urine Squamous Epithelial Cells Occasional /LPF Urine Bacteria Few /HPF (NONE) Urine Eosinophils None seen Urine Random Sodium 82 mmol/L Urine Potassium Timed 15 mmol/L White Blood Count 4.2 K/UL (4.8-10.8) L Red Blood Count 3.52 M/UL (4.20-5.40) L Hemoglobin 11.0 G/DL (12.0-16.0) L Hematocrit 33.7 % (37.0-47.0) L Mean Corpuscular Volume 96 FL (80-99) Mean Corpuscular Hemoglobin 31.2 PG (27.0-31.0) H Mean Corpuscular Hemoglobin Concent 32.5 G/DL (32.0-36.0) Red Cell Distribution Width 12.4 % (11.6-14.8) Platelet Count 237 K/UL (150-450) Mean Platelet Volume 7.7 FL (6.5-10.1) Neutrophils (%) (Auto) 47.6 % (45.0-75.0) Lymphocytes (%) (Auto) 38.2 % (20.0-45.0) Monocytes (%) (Auto) 6.4 % (1.0-10.0) Eosinophils (%) (Auto) 7.3 % (0.0-3.0) H Basophils (%) (Auto) 0.6 % (0.0-2.0) Sodium Level 145 mEQ/L (135-145) Potassium Level 4.8 mEQ/L (3.4-4.9) Chloride Level 110 mEQ/L (98-107) H Carbon Dioxide Level 23 mEQ/L (20-30) Anion Gap 12 (5-15) Blood Urea Nitrogen 40 mg/dL (7-23) H Creatinine 1.5 mg/dL (0.5-0.9) H Estimat Glomerular Filtration Rate mL/min (>60) Glucose Level 181 mg/dL (74-106) H Calcium Level 9.4 mg/dL (8.6-10.2) Total Bilirubin 0.3 mg/dL (0.0-1.2) Aspartate Amino Transf (AST/SGOT) < 5 U/L (5-40) L Alanine Aminotransferase (ALT/SGPT) 7 U/L (3-33) Alkaline Phosphatase 82 U/L (35-104) Troponin I < 0.30 ng/mL (<=0.30) Pro-B-Type Natriuretic Peptide 9128 pg/mL (0-450) H Total Protein 6.7 g/dL (6.6-8.7) Albumin 3.7 g/dL (3.5-5.2) Globulin 3.0 g/dL Albumin/Globulin Ratio 1.2 (1.0-2.7) Microbiology Date/Time Source Procedure Growth Status 06/17/17 13:50 Urine,Clean Catch Urine Culture - Preliminary Resulted 06/16/17 18:21 Urine,Clean Catch Urine Culture - Preliminary Mixed Urogenital Contaminants Resulted JEFFERY BRADY Jun 18, 2017 13:08
[2017-06-18] MEDS ORDERED: Mylanta II UD 30ml ORAL PRN (14:30)
[2017-06-18] MEDS ORDERED: Morphine Sulfate 2mg/ml Inj SUBQ PRN (14:30)
[2017-06-18] MEDS ORDERED: Morphine Sulfate 2mg/ml Inj IVP PRN (14:30)
[2017-06-18] MEDS ORDERED: Albuterol/Ipratropium 3ml neb HHN PRN (14:30)
[2017-06-18 16:15] VITALS: BP 131/63
[2017-06-18 20:00] VITALS: BP 151/74
[2017-06-18] MEDS ORDERED: Zolpidem 5mg tab ORAL PRN (21:00)
[2017-06-18] MEDS ORDERED: Miralax 17gm pkt ORAL PRN (22:30)
[2017-06-19 04:00] VITALS: BP 116/76
[2017-06-19] MEDS: NovoLOG Insulin Flexpen SUBQ SCH ×2 (06:11→11:55)
[2017-06-19 08:00] VITALS: BP 140/75
[2017-06-19] MEDS: Carvedilol 6.25mg Tab ORAL SCH (08:51)
[2017-06-19] MEDS: Heparin 5000 units/ml inj SUBQ SCH (08:52)
[2017-06-19 12:04] VITALS: BP 146/83
[2017-06-19 12:43] LABS: BASOPHILS % (AUTO) 0.6 % (0.0-2.0); EOSINOPHILS % (AUTO) 4.6 % (0.0-3.0); LYMPHOCYTES % (AUTO) 37.7 % (20.0-45.0); MEAN CORPUSCULAR HEMOGLOBIN 30.7 PG (27.0-31.0); MEAN CORPUSCULAR HGB CONC 31.9 G/DL (32.0-36.0); MEAN CORPUSCULAR VOLUME 96 FL (80-99); MEAN PLATELET VOLUME 7.5 FL (6.5-10.1); MONOCYTES % (AUTO) 6.6 % (1.0-10.0); NEUTROPHILS % (AUTO) 50.4 % (45.0-75.0); PLATELET COUNT 236 K/UL (150-450); RED BLOOD COUNT 3.59 M/UL (4.20-5.40); RED CELL DISTRIBUTION WIDTH 12.2 % (11.6-14.8); WHITE BLOOD COUNT 4.7 K/UL (4.8-10.8)
[2017-06-19 13:05] LABS: ALANINE AMINOTRANSFERASE 7 U/L (3-33); ALBUMIN/GLOBULIN RATIO 1.3 (1.0-2.7); ANION GAP 16 (5-15); ASPARTATE AMINO TRANSFERASE 19 U/L (5-40); CALCIUM 9.5 mg/dL (8.6-10.2); CARBON DIOXIDE 21 mEQ/L (20-30); CHLORIDE 104 mEQ/L (98-107); CREATININE 1.6 mg/dL (0.5-0.9); HEMOLYSIS 1; MAGNESIUM 1.7 mg/dL (1.7-2.5); PHOSPHORUS 3.5 mg/dL (2.5-4.8); POTASSIUM 4.9 mEQ/L (3.4-4.9); SODIUM 141 mEQ/L (135-145); TOTAL PROTEIN 6.9 g/dL (6.6-8.7)
[2017-06-19 14:35] VITALS: BP 162/73
--- NOTE | 2017-06-20 12:15 | Consultation ---
DATE OF CONSULTATION: 06/17/2017 CARDIOLOGY CONSULTATION CONSULTING PHYSICIAN: Carl Wilde M.D. REFERRING PHYSICIAN: Anthony Solomon M.D. REASON FOR REFERRAL: Questionable chest pain. History Of Present Illness: This is an elderly female, who is known to me from prior evaluation. The patient was brought in from a shelter by paramedics with complaints of shortness of breath and wheezing bilaterally. Originally, the patient denied any nausea or vomiting to the paramedics, but she was complaining of some chest pain, but the staff at the facility stated that the patient always complains of chest pain, but she had no new pain today. The patient was given some albuterol treatments. Oxygen improved to 100% and sinus rhythm on 12-lead EKG. IV was unable to be started by the paramedics and the patient was brought to the emergency room at [facility]. The electrocardiogram that was obtained by the paramedics showed some ST-segment depression in V5 and V6, I and aVL. The patient has had some shortness of breath. Past Medical History: History of coronary disease, history of bypass grafting in 2003, 01:30, hypertension, hyperlipidemia, diabetes, chronic renal insufficiency, and gastroesophageal reflux disease. She had some [id number] myocardial infarction, vascular dementia, urinary tract infection, chronic renal insufficiency, and she had a previously equivocal perfusion imaging on prior evaluations. She was supposed to get outpatient stress test, but that apparently never occurred. In either case, the patient did have history of diabetes mellitus with episodes of hypoglycemia and cerebrovascular accident history as well. Allergies: There are no known drug allergies according to the records. Social History: The patient denies any smoking or drinking alcoholic beverages at this time. She is a resident of [facility]. Review Of Systems: Gastrointestinal: At this time, negative. Genitourinary: Negative. Pulmonary: Negative. Constitutional: Negative. Neurologic: Negative. PHYSICAL EXAMINATION: General: Shows to be elderly female, in no apparent respiratory distress. Neck: Supple. There is a right-sided carotid surgery scar on the right side. LUNGS: Appear to be clear to auscultation and percussion. Cardiac: S1 is normal. S2 is normal. Regular rate and rhythm. There is a systolic ejection murmur. ABDOMEN: Soft and nontender. Positive bowel sounds. EXTREMITIES: There is no edema. Neurological: She is awake, alert, responsive, and in no apparent respiratory distress. Laboratory Data: Laboratory values from the 03:05 evaluation included white count of 4.4, hemoglobin 10.2, and platelet count of 226,000. Sodium 142, potassium 5.1, chloride 108, bicarbonate 21, BUN of 56, and creatinine 2.0. Creatinine compared to previously the day before was 2.3 and prior in March was 1.5 so increased recently. Blood sugar 201, A1c of 8.5, and calcium is 8.3. The liver function tests are normal. Total cholesterol 112 with a LDL of 44 and a HDL of 47. TSH is 0.48. Urinalysis showed 3+ leukocyte esterase, 2 to 4 WBCs, and 0 to 2 RBCs. A chest x-ray was performed on the day of admission that showed hypoventilatory 04:02 with mild interstitial congestive changes, hazy left-sided base may indicate atelectasis or consolidation and/or pleural effusion, borderline cardiomegaly was noted during that evaluation. The patient's electrocardiogram at the time of admission had shown some T-wave inversions in V5 and V6. There was some ST-segment changes and T-wave inversions in I and aVL as well with T-wave inversions in V2. In direct comparison 04:29 the prior EKGs, the I and aVL ST-segment depression and T-wave inversions appear to be new as much as I could ascertain. Cardiac enzymes were negative at 0.3 at least the first set. ASSESSMENT AND PLAN: 1. Questionable chest pain. 2. Coronary artery disease, status post coronary artery bypass grafting. 3. Diabetes mellitus. 4. Vascular dementia. 5. Hypertension. Plan: Dr. Solomon, this patient was seen in cardiac consultation. The patient's electrocardiogram is somewhat different. I would recommend repeat cardiac enzymes, repeat echocardiogram, and repeat EKG to be performed. She may require perfusion imaging in light of the fact that she has had these abnormalities on prior occasions. Because the previous perfusion imaging is somewhat equivocal, I decided previously to consider performing an outpatient stress test, but that never occurred. I suspect at this time that she should have a perfusion imaging in light of minor changes on the EKG that will depend on the results of the echocardiogram as well as the repeat cardiac enzymes, which I will order for tomorrow morning. Carl Wilde M.D. DR: YAIMA JOB#: [id number] CC:
--- NOTE | 2017-06-20 19:37 | Cardiology Report ---
APPROVED REPORT EKG Measurement Heart [id number] Normal sinus rhythm with sinus arrhythmia Abnormal ECG
--- NOTE | 2017-06-21 14:22 | Discharge Summary ---
Discharge Summary Hospital Course Date of Admission Jun 16, 2017 at 18:38 Date of Discharge Jun 19, 2017 at 14:44 Admitting Diagnosis Hyperkalemia, acute renal failure HPI Ana Maria Moran is a 76 year old female who was admitted on Jun 16, 2017 at 18: 38 for Hyperkalemia, Acute Renal Failure Hospital Course DC SUMMARY #[id number] Discharge Medications New Medications: Carvedilol (Coreg) 6.25 Mg Tablet 6.25 MG ORAL EVERY 12 HOURS for 30 Days, TAB Continued Medications: Acetaminophen (Acetaminophen 8 Hour) 650 Mg Tablet 650 MG ORAL Q6H PRN for Pain Scale (3-5), TAB Amlodipine Besylate (Norvasc) 2.5 Mg Tab 2.5 MG ORAL DAILY, #30 TAB Apixaban (Eliquis) 2.5 Mg Tablet 2.5 MG PO BID, TAB Ascorbic Acid* (Vitamin C*) 250 Mg Tablet 250 MG ORAL TWICE A DAY, #60 TAB 0 Refills Bumetanide* (Bumetanide*) 1 Mg Tablet 1 MG ORAL BID, TAB Carvedilol (Coreg) 25 Mg Tab 25 MG ORAL EVERY 12 HOURS, #60 TAB Ferrous Sulfate* (Ferrous Sulfate*) 325 Mg Tablet 325 MG ORAL DAILY, #30 TAB 0 Refills Insulin Glargine (Lantus) 100 Unit/1 Ml Insuln.pen 0 SUBQ BEDTIME, #1 EA 0 Refills Morphine Sulfate* (Morphine Sulfate*) 2 Mg/1 Ml Cartridge 2 MG SUBQ EVERY 6 HOURS PRN, #10 EA severe pain Polyethylene Glycol 3350* (Miralax*) 17 Gm Powd.pack 17 GM ORAL HSPRN PRN for Constipation, #30 PACK Ranitidine Hcl* (Zantac*) 150 Mg Tablet 150 MG ORAL TWICE A DAY, #30 TAB Discontinued Medications: Carvedilol (Coreg) 6.25 Mg Tablet 6.25 MG ORAL EVERY 12 HOURS, TAB Discharge Condition Upon Discharge: stable Discharge Disposition Patient was discharged to SNF/Subacute Facility(03) Discharge Diagnoses: Discharge Instructions Discharge Instructions Special Instructions I have been assigned to complete a D/C Summary on this account. I was not involved in the patient management Tonie Doherty NP ([place]) Jun 21, 2017 14:22
--- NOTE | 2017-06-22 02:30 | Discharge Summary 2 SIG ---
DATE OF ADMISSION: 06/16/2017 DATE OF DISCHARGE: 06/19/2017 Reason For Admission: The patient is a 76-year-old female, resident of the retirement facility with past medical history significant for diabetes, CVA, dementia, and hypertension, presented for evaluation for hyperkalemia. Potassium - 6.2 at the retirement facility. Hyperkalemia was treated, but the patient was sent for evaluation. In the emergency department, potassium -5.7, BUN- 67, creatinine -2.3, and glucose - 217. Troponin was negative. Pro BNP -4684. Urinalysis with evidence of 3+ leukocyte esterase, but no pyuria and many bacteria. No leukocytosis. Mild anemia. EKG showed normal sinus rhythm with T-wave inversion in leads 1 and aVL as well as T-wave inversion in V2. Troponin was negative. The patient was admitted for further management. ADMITTING DIAGNOSES: 1. Hyperkalemia. 2. Acute on chronic renal failure. 3. Diabetes mellitus. 4. Vascular dementia. 5. Hypertension. Hospital Stay: The patient was admitted. Cardiology consult was requested. Renal ultrasound revealed no hydronephrosis. Normal echogenicity of bilateral kidneys. Chest x-ray revealed mild interstitial changes. Pro BNP -4684. Echocardiogram revealed ejection fraction of 50% to 55% with hypokinesis of proximal posterior wall and proximal septum, evidence of moderate mitral regurgitation and left ventricular systolic pressure of 12. No evidence of left ventricular hypertrophy. Mud Cleaner Operator seen and evaluated the patient. The patient was on beta-carmen and calcium-channel carmen for treatment of hypertension. Troponin x2 negative. EKG showed some old and some new ST changes. The patient with known history of coronary artery disease and coronary artery bypass graft. Aspirin was continued. Lipid panel was within normal limits.The patient was also on anticoagulation with Eliquis. Mud Cleaner Operator recommended stress test to be done either inpatient or outpatient. Patient asymptomatic, denies chest pain, SOB, palpitations. Stress test will be arranged as outpatient. Followup chest x-ray revealed improvement. Supplemental oxygen and pulmonary toilet were provided as needed. Pulse oximetry was stable on room air. Blood sugar was managed with sliding scale of insulin and was stable. Hemoglobin A1c - 8.5, not at goal. Patient needs further optimization of blood sugar as outpatient. Creatinine down to 1.6 and BUN down to 37. Acute kidney failure was likely secondary to dehydration. Potassium down to 4.9. Renal ultrasound as mentioned above was unremarkable. The patient was not on any potassium sparing medication. No LUDY. No ARB. Urine culture revealed mixed urogenital contaminant with colony count of 50 to 60 No need for antibiotics. The patient was stable for discharge. FINAL DIAGNOSES: 1. Hyperkalemia, resolved. 2. Acute on chronic renal failure, improved. 3. Diabetes mellitus. 4. Dehydration. 5. Vascular dementia. 6. Hypertension. 7. History of cerebrovascular accident. 8. Coronary artery disease status post coronary artery bypass graft. DISCHARGE MEDICATIONS: See medication reconciliation list. Discharge Instructions: The patient was discharged to retirement facility. Schedule outpatient adenosine stress test as recommended by monitoring analyst. Anthony Solomon M.D. I have been assigned to dictate discharge summary on this account and I was not involved in the patient's management. Tonie Doherty (Vanchtein) NGuera DR: DEL JOB#: [id number] CC: KYLE
--- NOTE | 2017-06-26 02:11 | Cardiology Report ---
APPROVED REPORT EKG Measurement Heart [id number] Sinus rhythm with sinus arrhythmia with 1st degree AV block Abnormal ECG
== END 2017-06-19 14:44 | DRG 641 ==
LOC: EDUNIT# 15:45 → EDBD 15:45 → EMR 16:30 → 2E 18:38 → EDBEDREQ 20:21 → 2E 06-17 14:40 → 4E 06-18 13:44
DX: E87.5 Hyperkalemia (principal); E86.0 Dehydration; N17.9 Acute kidney failure, unspecified; E11.22 Type 2 diabetes mellitus with diabetic chronic kidney disease; F01.50 Vascular dementia, unspecified severity, without behavioral disturbance, psychotic disturbance, mood disturbance, and anxiety; N18.9 Chronic kidney disease, unspecified; Z86.73 Personal history of transient ischemic attack (TIA), and cerebral infarction without residual deficits; I25.10 Atherosclerotic heart disease of native coronary artery without angina pectoris; Z95.1 Presence of aortocoronary bypass graft; I12.9 Hypertensive chronic kidney disease with stage 1 through stage 4 chronic kidney disease, or unspecified chronic kidney disease; K21.9 Gastro-esophageal reflux disease without esophagitis; I25.2 Old myocardial infarction; Z79.4 Long term (current) use of insulin
CPT/HCPCS: 36415; 71010; 76775; 80053; 80061; 81001; 81003; 82550; 82553; 82962; 83036; 83735; 83880; 84100; 84133; 84300; 84443; 84484; 84550; 85025; 87081; 87086; 89050; 93005; 93306; 94664; 99285; J1815

== ENCOUNTER 2017-08-11 06:25 | Emergency (ER) | payer MEDICARE, MEDICAID ==
[~2017-08-11] VITALS: Ht 157.5 cm; Wt 74.8 kg
[~2017-08-11 06:25] MED LIST changes: +ATORVASTATIN CA40 MG ORAL; +BUMETANIDE1 MG ORAL; +ELIQUIS2.5 MG PO; +ZANTAC150 MG ORAL
[2017-08-11] MEDS ORDERED: Nitroglycerin 2% oint pkt TOPIC ONE (06:45)
[2017-08-11] MEDS ORDERED: Morphine Sulfate 2mg/ml Inj IVP ONE (06:45)
[2017-08-11 06:50] VITALS: BP 128/73
[2017-08-11 07:09] LABS: BASOPHILS % (AUTO) 0.3 % (0.0-2.0); EOSINOPHILS % (AUTO) 1.1 % (0.0-3.0); LYMPHOCYTES % (AUTO) 13.3 % (20.0-45.0); MEAN CORPUSCULAR HEMOGLOBIN 31.8 PG (27.0-31.0); MEAN CORPUSCULAR HGB CONC 33.1 G/DL (32.0-36.0); MEAN CORPUSCULAR VOLUME 96 FL (80-99); MEAN PLATELET VOLUME 7.4 FL (6.5-10.1); MONOCYTES % (AUTO) 4.4 % (1.0-10.0); PLATELET COUNT 234 K/UL (150-450); RED CELL DISTRIBUTION WIDTH 12.6 % (11.6-14.8); WHITE BLOOD COUNT 6.8 K/UL (4.8-10.8)
[2017-08-11 07:18] LABS: PROTHROMBIN TIME 10.6 SEC (9.30-11.50)
[2017-08-11 07:29] LABS: ANION GAP 10 mmol/L (5-15); CALCIUM 9.1 MG/DL (8.5-10.1); CARBON DIOXIDE 27 MMOL/L (21-32); CHLORIDE 100 MMOL/L (98-107); CREATININE 2.7 MG/DL (0.55-1.30); SODIUM 137 MMOL/L (136-145)
[2017-08-11 07:39] LABS: ALANINE AMINOTRANSFERASE 13 U/L (12-78); ALBUMIN/GLOBULIN RATIO 0.8 (1.0-2.7); ASPARTATE AMINO TRANSFERASE 26 U/L (15-37); TOTAL PROTEIN 7.7 G/DL (6.4-8.2)
--- NOTE | 2017-08-11 07:43 | Emergency Room Report ---
History of Present Illness General Chief Complaint: Chest Pain Source: Patient, EMS Present Illness HPI EMS was called to SNF for patient complaining about chest pain. She's left side of her chest radiating to her left arm. Poorly described as a patient suffers from dementia. She's had a history of coronary artery disease in the past. Paramedics gave the patient aspirin and also she had received 3 sprays of nitroglycerin at the [facility]. She is stating that the pain was quite a bit improved after this. Patient admitted by me for NSTEMI in October. Post CABG. Treated in past for renal insufficiency. No cough, dyspnea, NVD. Allergies: Coded Allergies: NO KNOWN DRUG ALLERGIES (Verified Allergy, Unknown, 09/26/15) Patient History Limited by: medical condition Past Medical History: see triage record, old chart reviewed Past Surgical History: CABG Social History Narrative SNF Last Menstrual Period: n/a Reviewed Nursing Documentation: PMH: Agreed, PSxH: Agreed Nursing Documentation-PMH Hx Cardiac Problems: Yes - a-fib Hx Hypertension: Yes Hx Diabetes: Yes Hx Cancer: No Hx Neurological Problems: Yes - dementia Hx Cerebrovascular Accident: Yes - right side Hx Dementia: Yes Hx Peripheral Neuropathy: Yes Hx Memory Loss: Yes Hx Aphasia: Yes Hx Weakness: Yes Review of Systems All Other Systems: limited Physical Exam Vital Signs Date Time Temp Pulse Resp B/P (MAP) Pulse Ox O2 Delivery O2 Flow Rate FiO2 08/11/17 06:20 97.9 78 32 128/73 98 Room Air Sp02 EP Interpretation: reviewed, normal General Appearance: well appearing, no apparent distress, other - GCS 13 Head: normocephalic Eyes: bilateral eye normal inspection, bilateral eye PERRL ENT: moist mucus membranes Neck: supple Respiratory: lungs clear, normal breath sounds Cardiovascular #1: regular rate, rhythm Cardiovascular #2: 2+ radial (R) Gastrointestinal: normal inspection, normal bowel sounds, non tender, no mass, non-distended Musculoskeletal: back normal, gait/station normal, normal range of motion Neurologic: alert, motor strength/tone normal, DTRs symmetric, sensory intact, oriented - X2 Psychiatric: depressed affect Skin: normal inspection, warm/dry Procedures Critical Care Time Critical Care Time Total Critical Care Time: 45 min bedside evaluation and treatment excludes procedures (EKG). Reason for critical care: STEMI, transient hypotension, renal insufficiency, re- evaluations Possible complications: hypotension, hypertension, myocardial injury, shock, arrhythmias, metabolic acidosis, end organ damage. Interventions: aspirin, nitrates, metoprolol (cancelled), morphine, heparin, and emergent transfer. Course: Patient initially presented with chest pain via EMS. Prehospital EKG without STEMI, but some ST elevation. EKG in ED also similar. Treated with morphine and nitro-paste. Pain improved. Lab called with + troponin. [facility] contacted. Patient received aspirin in field, nitrates. Metoprolol ordered. Prior to being given, BP low. Nitro-paste d/c and fluid bolus with rise in BP. Heparin bolus given after discussion with JAMILA MESA. Improved and denies pain. Accepted by [facility] after my direct discussion with the ED attending. She was transferred emergently by [facility]. Consultations: nursing staff, EMS, [facility] attending Performed by: Dr. Baptiste Tolerated well condition = critical Medical Decision Making Diagnostic Impression: Primary Impression: STEMI (ST elevation myocardial infarction) Qualified Codes: I21.29 - ST elevation (STEMI) myocardial infarction involving other sites Additional Impression: Acute renal failure Qualified Codes: N17.9 - Acute kidney failure, unspecified ER Course Patient presents with chest pain with history of coronary disease. Prehospital he EKG is suspicious for possible near STEMI although elevation/depression is not in 2 contiguous leads. Differential includes acute myocardial infarction, acute coronary syndrome, other causes of chest pain including costochondritis amongst others. Emergent evaluation with EKG, chest x-ray and labs including troponin. She received aspirin in the field and nitrates. Will continue nitroglycerin here and treated with morphine. Our EKG is similar to prehospital. Were contacted by the lab the patient a positive troponin at 7:30. EKGs were immediately faxed to [facility]. The patient was given metoprolol 5 mg IV x3. Discussed with Dr. Limon who accepts at [facility] at 7:50. [facility] BP dropped. D/C nitrolpaste and hold metoprolol. Fluid bolus given. Creat is higher than it has been though patient with renal insufficiency. BP better with fluids. Heparin bolus given. Discussed dx and treatment plan with patient who understands. 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 Laboratory Tests Test 08/11/17 06:45 White Blood Count 6.8 K/UL (4.8-10.8) Red Blood Count 3.40 M/UL (4.20-5.40) L Hemoglobin 10.8 G/DL (12.0-16.0) L Hematocrit 32.7 % (37.0-47.0) L Mean Corpuscular Volume 96 FL (80-99) Mean Corpuscular Hemoglobin 31.8 PG (27.0-31.0) H Mean Corpuscular Hemoglobin Concent 33.1 G/DL (32.0-36.0) Red Cell Distribution Width 12.6 % (11.6-14.8) Platelet Count 234 K/UL (150-450) Mean Platelet Volume 7.4 FL (6.5-10.1) Neutrophils (%) (Auto) 81.0 % (45.0-75.0) H Lymphocytes (%) (Auto) 13.3 % (20.0-45.0) L Monocytes (%) (Auto) 4.4 % (1.0-10.0) Eosinophils (%) (Auto) 1.1 % (0.0-3.0) Basophils (%) (Auto) 0.3 % (0.0-2.0) Prothrombin Time 10.6 SEC (9.30-11.50) Prothrombin Time INR 1.0 (0.9-1.1) PTT 28 SEC (23-33) Sodium Level 137 MMOL/L (136-145) Potassium Level 5.0 MMOL/L (3.5-5.1) Chloride Level 100 MMOL/L (98-107) Carbon Dioxide Level 27 MMOL/L (21-32) Anion Gap 10 mmol/L (5-15) Blood Urea Nitrogen 65 mg/dL (7-18) H Creatinine 2.7 MG/DL (0.55-1.30) H Estimate Glomerular Filtration Rate mL/min (>60) Glucose Level 455 MG/DL (74-106) H Calcium Level 9.1 MG/DL (8.5-10.1) Total Bilirubin 0.3 MG/DL (0.2-1.0) Aspartate Amino Transferase (AST) 26 U/L (15-37) Alanine Aminotransferase (ALT) 13 U/L (12-78) Alkaline Phosphatase 89 U/L (46-116) Total Creatine Kinase 209 U/L (26-308) Troponin I 6.569 ng/mL (0.000-0.056) Pro-B-Type Natriuretic Peptide 5965 pg/mL (0-125) H Total Protein 7.7 G/DL (6.4-8.2) Albumin 3.5 G/DL (3.4-5.0) Globulin 4.2 g/dL Albumin/Globulin Ratio 0.8 (1.0-2.7) L EKG Diagnostic Results Rate: normal Rhythm: NSR ST Segments: other - ST elevation V1, ST inversions inf Rhythm Strip Diag. Results Rhythm: NSR, no PVC's, no ectopy Chest X-Ray Diagnostic Results Chest X-Ray Diagnostic Results : Chest X-Ray Ordered: Yes # of Views/Limited/Complete: 1 View Indication: Chest Pain Interpretation: no effusion, no pneumothorax, other - increased alberto not different from prior Impression: Other Electronically Signed by: Ben Baptiste MD Last Vital Signs Date Time Temp Pulse Resp B/P (MAP) Pulse Ox O2 Delivery O2 Flow Rate FiO2 08/11/17 08:15 71 19 102/58 97 08/11/17 08:02 97.9 Room Air Status: improved Disposition: XFER [facility] - higher level of care Condition: Critical Referrals: JUAN LUIS ASHLEY (PCP) Ben Baptiste M.D. Aug 11, 2017 07:43
[2017-08-11] MEDS ORDERED: Metoprolol 5mg/5ml Inj IVP SCH (07:45)
[2017-08-11 07:53] LABS: APPEARANCE,URINE CLEAR; KETONES,URINE NEGATIVE (NEGATIVE); LEUKOCYTE ESTERASE ,URINE NEGATIVE (NEGATIVE); NITRITE,URINE NEGATIVE (NEGATIVE); PH,URINE 6 (4.5-8.0); PROTEIN,URINE NEGATIVE (NEGATIVE); UROBILINOGEN,URINE NORMAL MG/DL (0.0-1.0)
[2017-08-11] MEDS ORDERED: NS 250 ML IVPB ONE (08:00)
[2017-08-11 08:02] VITALS: BP 102/53
[2017-08-11 08:15] VITALS: BP 102/58
[2017-08-11] MEDS ORDERED: Heparin 5000 units/ml inj IV ONE (08:15)
--- NOTE | 2017-08-21 16:32 | Cardiology Report ---
APPROVED REPORT EKG Measurement Heart [id number] [id number] Sinus rhythm with 1st degree AV block Marked ST abnormality, possible inferolateral subendocardial injury Abnormal ECG
== END 2017-08-11 08:15 | disposition short-term general hospital (02) ==
LOC: EDBD 06:25 → EMR 06:58 → EDBEDREQ 07:15 → EMR 08:15
DX: I21.29 ST elevation (STEMI) myocardial infarction involving other sites (principal); N17.9 Acute kidney failure, unspecified; I10 Essential (primary) hypertension; E11.9 Type 2 diabetes mellitus without complications; F03.90 Unspecified dementia, unspecified severity, without behavioral disturbance, psychotic disturbance, mood disturbance, and anxiety; Z86.73 Personal history of transient ischemic attack (TIA), and cerebral infarction without residual deficits; I25.10 Atherosclerotic heart disease of native coronary artery without angina pectoris
CPT/HCPCS: 36415; 71010; 80053; 81003; 82550; 83880; 84484; 85025; 85610; 85730; 87081; 93005; 99291; J1644; J2270; J2405; J7050